=== PATIENT | male | born 1945 | race Caucasian/White ===

== ENCOUNTER 2020-06-22 02:21 | Outpatient (CLI) | payer MEDICARE, BC, SELFPAY ==
[2020-06-22 08:58] LABS: FREE T4 1.25 ng/dL (0.76-1.46); TSH 3.82 uIU/mL (0.36-3.74)
== END 2020-06-22 02:41 ==
PROVIDERS: PCP Family Medicine; Visit Provider Internal Medicine Endocrinology, Diabetes & Metabolism
DX: E05.90 Thyrotoxicosis, unspecified without thyrotoxic crisis or storm (principal); E11.9 Type 2 diabetes mellitus without complications
CPT/HCPCS: 36415; 83036; 84439; 84443

== ENCOUNTER 2020-09-23 13:59 | Observation (INO) | payer MEDICARE, BC, SELFPAY ==
[2020-09-23] VITALS (52 sets, daily range): BP systolic 100–168; BP diastolic 21–80; PULSE 82–175; RESP 1–25; TEMP 35.8–36.8; O2SAT 95–98
--- NOTE | 2020-09-23 14:00 | RT.EKG_ITS ---
APPROVED REPORT Exam: Resting ECG Patient Location: E HR:90 bpm ECG Measurements Heart Rate 90 AXIS OH 228 P 73 QRSd 138 QRS 33 QT 383 T 35 QTc 469 Conclusion Sinus rhythm...normal P axis, V-rate 60- 99 Prolonged OH interval...OH >220, V-rate 50- 90 Right bundle branch block...QRSd>120, terminal axis(90,270). No STEMI. I have reviewed and interpreted ECG and agree with software generated interpretation.
--- NOTE | 2020-09-23 14:00 | W.ED.GENAD ---
Discharge Plan Disposition Patient Disposition: [facility] INPATIENT Condition: Stable Discharge Details Clinical Impression: Pneumonia, Dyspnea, Chest pain Admit Date/Time: 09/23/20 17:14 Admit Provider: Rafiq Boss Attending Provider: Rafiq Boss Primary Care Provider: Mike Gómez ED Provider: Colleen Herrera Discharge Data Discharge Date/Time-TO BE ENTERED AT DEPARTURE: 09/23/20 18:50 Medical Decision Making 1410 -- 75-year-old male with a history of diabetes, hypertension, hyperlipidemia, BPH, GERD, hypothyroidism, OK with angioplasty x2 presents for an episode of chest pain and shortness of breath after going for a walk today. EKG notes a rate of 90, sinus, right bundle branch block and no STEMI, nondiagnostic. Able to obtain an old EKG from [facility] in 2019 which appears similar. Differential diagnosis includes ACS, pneumonia, PE, arrhythmia, electrolyte abnormality. Will place an IV, bolus IV fluids, screening labs, CT chest and reassess. 1600 --labs and imaging reviewed. Troponin negative. White blood cell count 16. Hemoglobin 10. Magnesium 0.9, will replete. Glucose elevated at 264 but with normal bicarb and anion gap. Considering patient's risk factors with a heart score of 5, will admit for observation, serial troponins and EKGs. 1700 --CT reviewed and notes possible right upper lobe pneumonia. Patient reassessed and he currently denies any symptoms. Discussed with over the phone and she has been concerned about patient's ongoing fatigue for the past few weeks. Considering patient's age and history, will admit for IV antibiotics and serial troponins and EKGs. Repeat EKG unchanged. Repeat troponin negative. Case discussed with hospitalist accepts patient for admission. Medical Records Medical records reviewed: Yes I reviewed the patient's medical records. Imaging Data Radiologic Study: Radiologist's impression: CT Angiography Chest With Contrast Exam date and time: 09/23/2020 2:39 PM Age: 75 years old Clinical indication: Other: Chest pain, SOB, R/O acute disease TECHNIQUE: Imaging protocol: Computed tomographic angiography of the chest with intravenous contrast. 3D rendering (Not supervised by radiologist): MIP and/or 3D reconstructed images were created by the technologist. Contrast material: OMNIPAQUE 350; Contrast volume: 82 ml; Contrast route: INTRAVENOUS (IV); COMPARISON: No relevant prior studies available. FINDINGS: Pulmonary arteries: Normal. No pulmonary emboli. Aorta: Unremarkable. No aortic aneurysm. No aortic dissection. Lungs: Multiple pulmonary nodules in the left lung measuring up to 6 mm. Minimal patchy ground-glass infiltrates in the right upper lobe. Focal inflammation or infection is not excluded. Pleural space: Unremarkable. No pneumothorax. No pleural effusion. Heart: Unremarkable. No cardiomegaly. No pericardial effusion. Lymph nodes: Unremarkable. No enlarged lymph nodes. Kidneys and ureters: Bilateral partially viewed renal cysts measuring at least 6.7 cm in maximal diameter. Bones/joints: Degenerative changes in the spine. Soft tissues: Unremarkable. Other findings: Atherosclerosis. IMPRESSION: 1. Bilateral partially viewed renal cysts measuring at least 6.7 cm in maximal diameter. 2. Multiple pulmonary nodules in the left lung measuring up to 6 mm. For patients at low risk (minimal or absent history of smoking and of other known risk factors), recommend CT Chest at 3-6 months, then consider CT Chest at 18-24 months. For patients at high risk (history of smoking or of other known risk factors), recommend CT Chest at 3-6 months, then CT Chest at 18-24 months. (Reference: Randal) 3. Minimal patchy ground-glass infiltrates in the right upper lobe. Focal inflammation or infection is not excluded. Lab Data Lab results reviewed: Yes I reviewed the patient's lab results. Labs: 09/23/20 17:41 Blood Blood Culture - Pending 09/23/20 17:41 Blood Blood Culture - Pending Laboratory Tests Range/Units 09/23/20 09/23/20 09/23/20 14:24 14:24 14:24 WBC (4.4-10.8) 10^3/uL 16.54 H RBC (4.36-5.78) 10^6/uL 3.33 L Hgb (13.5-17.5) g/dL 10.2 L Hct (40.0-50.0) % 30.5 L MCV (80-95) fL 91.6 MCH (27.0-33.0) pg 30.6 MCHC (32.0-36.0) % 33.4 RDW (11.8-14.1) % 12.0 Plt Count (130-400) 10^3/uL 193 MPV (8.0-11.0) fL 10.0 Immature Gran % 0.4 Neutrophils % 86.7 Lymphocytes % 6.0 Monocytes % 6.4 Eosinophils % 0.4 Basophils % 0.1 Nucleated RBC % % 0 Absolute Neutrophils (1.2-6.7) 10^3/uL 14.34 H Absolute Lymphocytes (1.2-3.4) 10^3/uL 0.99 L Absolute Monocytes (0.1-0.8) 10^3/uL 1.06 H Absolute Eosinophils (0.0-0.7) 10^3/uL 0.07 Absolute Basophils (0.0-0.2) 10^3/uL 0.02 PT (9.3-11.0) sec 9.8 INR (0.9-1.1) 1.0 APTT (21.0-27.5) sec 19.7 L Sodium (136-145) mmol/L 135 L Potassium (3.5-5.1) mmol/L 4.5 Chloride (98-107) mmol/L 100 Carbon Dioxide (21.0-32.0) mmol/L 24.4 Anion Gap (3-11) mmol/L 10.6 BUN (7-18) mg/dL 29 H Creatinine (0.70-1.30) mg/dL 1.62 H Estimated GFR/1.73 m2 (mL/min/1.73m2) 41.52 Glucose (74-106) mg/dL 264 H Calcium (8.5-10.1) mg/dL 8.7 Magnesium (1.8-2.4) mg/dL 0.9 L Total Bilirubin (0.2-1.0) mg/dL 0.5 AST (15-37) U/L 11 L ALT (16-63) U/L 22 Alkaline Phosphatase (46-116) U/L 90 Troponin I (<0.06) ng/mL < 0.05 Total Protein (6.4-8.2) g/dL 6.8 Albumin (3.4-5.0) g/dL 3.4 ECG Data Attestation: I personally reviewed and interpreted this ECG (s) as follows: Interpretation: #1 -- rate of 90, sinus, RBBB, no acute ST elevation or depression. QRS 138. QTc 469. #2 -- rate of 82, sinus, right bundle branch block, no acute ST elevation or depression. QRS 142. QTc 448. HPI General Mode of arrival: ambulatory. Date/Time Provider Initiated Documentation: 09/23/20 13:59. Limitations to Documentation: no limitations. Information obtained by: patient. HPI Narrative: Pt is a 75yo M w/ a h/o HTN, HLD, hypothyroidism, DM, glaucoma resulting in blindness, seasonal allergies, BPH, GERD, CAD and OK with angioplasty x 2 presents to the ED for shortness of breath and chest pain that started after a walk this morning. Patient states he went for his usual walk when he felt like he could not take a deep breath. He states he used his rescue inhaler with some relief. He states around this time he also developed substernal chest pressure that was at its worst 2/10. He denies any chest pain at present. He denies any radiation of pain, aggravating or alleviating factors. He states he was concerned about a possible heart attack so came to the ER for further evaluation. He does admit to a few episodes of diarrhea over the past few days but states this is now resolved. He denies any other recent illnesses, fever, cough, nausea, vomiting, dizziness or abdominal pain. He states he saw his celery packer recently who changed his hydrochlorothiazide to furosemide. Related Data Home Medications Medication Instructions Recorded Confirmed amlodipine 10 mg tablet 10 mg PO DAILY 06/23/20 09/23/20 aspirin 81 mg tablet,delayed 81 mg PO DAILY 06/23/20 09/23/20 release atorvastatin 80 mg tablet 80 mg PO QHS 06/23/20 09/23/20 carvedilol 12.5 mg tablet See Rx Instructions PO Q12H 06/23/20 09/23/20 cholecalciferol (vitamin D3) 50 50 mcg PO BID 06/23/20 09/23/20 mcg (2,000 unit) capsule glimepiride 4 mg tablet 2 mg PO BID tab 06/23/20 09/23/20 levothyroxine 50 mcg tablet 50 mcg PO DAILY 06/23/20 09/23/20 lisinopril 40 mg tablet 40 mg PO DAILY 06/23/20 09/23/20 mecobalamin (vitamin B12) 5,000 5,000 mcg PO DAILY tab 06/23/20 09/23/20 mcg disintegrating tablet multivitamin 1 tab PO DAILY 06/23/20 09/23/20 omeprazole 20 mg capsule,delayed 20 mg PO DAILY 06/23/20 09/23/20 release tamsulosin 0.4 mg capsule 0.4 mg PO DAILY 06/23/20 09/23/20 metformin 1,000 mg tablet 1,000 mg PO BID tab 08/04/20 09/23/20 sitagliptin 100 mg tablet 100 mg PO DAILY #90 tab 08/10/20 09/23/20 furosemide 40 mg PO DAILY 09/23/20 09/23/20 Previous Rx's Medication Instructions Recorded sitagliptin 100 mg tablet 100 mg PO DAILY #90 tab 08/10/20 Allergies Allergy/AdvReac Type Severity Reaction Status Date / Time brimonidine Allergy Unknown Verified 09/23/20 14:19 clopidogrel Allergy Unknown Rash Verified 09/23/20 14:19 dorzolamide Allergy Unknown Verified 09/23/20 14:19 latanoprost Allergy Unknown Verified 09/23/20 14:19 Review of Systems All systems reviewed & are unremarkable except as noted in HPI and below Constitutional Constitutional: Reports as per HPI, Denies chills and Denies fever(s) Eyes Eyes: Denies blurry vision ENT Ears, Nose, Mouth, and Throat: Denies dizziness, Denies sore throat and Denies throat swelling Cardiovascular Cardiovascular: Reports chest pain and Reports dyspnea Respiratory Respiratory: Denies cough and Reports dyspnea Gastrointestinal Gastrointestinal: Denies abdominal pain, Denies diarrhea and Denies vomiting Genitourinary Genitourinary: Denies hematuria and Denies dysuria Musculoskeletal Musculoskeletal: Denies back pain and Denies numbness Integumentary/Breasts Skin/Breast: Denies lesions and Denies rash Neurologic Neurologic: Denies dizziness, Denies localized weakness and Denies numbness Allergic/Immunologic Allergic/Immunologic: Denies throat swelling [facility] Medical History (Updated 09/23/20 @ 17:47 by Colleen Herrera DO) Anemia Arteriosclerotic heart disease Benign prostatic hyperplasia Blindness of both eyes Dyspnea on exertion GERD without esophagitis Hyperlipidemia Hypothyroidism Ischemic optic neuropathy Malaise and fatigue MDS (myelodysplastic syndrome) Multiple lung nodules on CT Myocardial infarction Primary open angle glaucoma of both eyes, severe stage Seasonal allergic rhinitis Type 2 diabetes mellitus with hyperglycemia Vitamin B12 deficiency Surgical History (Updated 06/23/20 @ 15:58 by Tereza Aguilera RN) H/O angioplasty (~1994) [facility] H/O heart artery stent (~2013) 3 stents per pt [facility] History of cataract surgery multiple surgeries between 6520-1356 [facility] per pt History of nasal surgery S/P tonsillectomy (~1950) Status post glaucoma surgery multiple surgeries per pt between 2074-0831 [facility] Family History (Updated 06/05/20 @ 15:16 by Rose Rivera) Uncle Asthma Breast cancer Diabetes Heart disease Aunt Breast cancer Diabetes Daughter Diabetes Social History (Updated 08/04/20 @ 13:35 by Piper Resendez RN) Smoking/Tobacco Use Status: Former Tobacco Use Quit Date: 11/17/82 Pack-years: 40 Tobacco: How many years used: 30 Smoking risk assessment performed?: Yes Alcohol Intake: current Alcohol Intake frequency: 0-2 drinks per day Alcohol type: wine Drug use: Never Substance use type: does not use Household members: spouse and family Housing: house Do you need help understanding health information?: Often current occupation: Retired Sexually active: No Do you think of yourself as: straight/heterosexual Current gender identity: male What is your relationship status?: Panel score (0-1 are the most socially isolated patients): 1 Do you feel safe at home: Yes Do you feel safe in your relationship?: Yes Exam Const General: cooperative and healthy appearing Orientation: alert and awake [facility] Head: normal to inspection Ears: hearing grossly normal bilaterally and external ears normal General nose exam: external nose normal Face and sinus: normal facial exam Mouth: oral mucosae normal Teeth and gingiva: dentition normal Throat: posterior oropharynx normal Eyes General: appearance normal, both eyes and all related structures Eyelids: eyelids normal Pupils: PERRL EOM: EOM intact bilaterally Neck Neck: normal visual inspection Lymphatic: no lymphadenopathy noted Chest Chest: normal inspection of the chest Resp Effort & Inspection: normal respiratory effort and able to speak in complete sentences Auscultation: clear to auscultation bilaterally Cardio Rate: regular rate Rhythm: regular rhythm GI Inspection: normal to inspection Palpation: soft, not firm, no guarding, no hepatosplenomegaly, no masses and nontender Auscultation: normal bowel sounds Back/Spine/Pelvis Thoracic/Lumbar Spine: thoracic and lumbar spine normal to inspection Skin General skin exam: no rashes or lesions noted Neuro General: patient alert and patient awake Cognition: normal cognition Speech: speech normal Gait: normal gait Motor: muscle tone normal throughout Sensory Exam: no sensory deficits noted Extrem General: normal to inspection, full ROM and capillary refill normal Psych Appearance: grossly normal Mental Status: mental status grossly normal Speech and Movement: speech and movement normal Affect: normal affect Thought Process: normal
--- NOTE | 2020-09-23 14:30 | DI.CT_ITS ---
EXAM: CT CHEST PE CTA CLINICAL HISTORY: chest pain, sob, r/o acute disease. TECHNIQUE: Imaging Protocol: Axial CT angiography was performed with multi-slice acquisition and mu lti-planar and/or 3D reconstructions. CONTRAST MATERIAL: Intravenous: Omnipaque 350 Contrast volume:structured data in ml COMPARISON: No exams were available for comparison FINDINGS: CT angiography of the chest was performed with intravenous infusion of 82 cc of Omnipaque 350. There are multiple pulmonary nodules noted, the largest measuring about 6 millimeters in diameter abu tting the pleura in the left lower lobe. These are noncalcified and smooth. No calcified nodules. No significant intrapulmonary infiltrate. Mild changes of scarring noted. No pleural effusion. Tra cheobronchial tree appears intact. No evidence of pulmonary embolic disease. Thoracic aorta is of normal diameter, no thoracic aortic an eurysm or dissection, major branch vessels appear intact. No mediastinal or hilar adenopathy. Images obtained through the upper abdomen show unremarkable appearance of the visualized portions of the liver, spleen, pancreas, adrenals, and kidneys with an incidental large left renal cyst noted.. IMPRESSION: No evidence of pulmonary embolic disease. Multiple noncalcified pulmonary nodules noted, follow-up c hest CT recommended in 6 months. RADIATION DOSE DELIVERED: 508.02mGy.cm Total DLP 508.02mGy.cm Total DLP DATA REPOSITORY: All CT scans at this facility are submitted to the National Radiology Data Registry (NRDR) Dose Index Registry (DIR) with the [employer] (ACR). RADIATION OPTIMIZATION: All CT scans at this facility use at least one of these dose optimization te chniques: automated exposure control; mA and/or kV adjustment per patient size (includes targeted exa ms where dose is matched to clinical indication); or iterative reconstruction.
[2020-09-23 14:31] LABS: Abs Immature Grans 0.07 10^3/uL (0.0-0.06); Absolute Basophil Count 0.02 10^3/uL (0.0-0.2); Absolute Lymphocyte Count 0.99 10^3/uL (1.2-3.4); Absolute Monocyte Count 1.06 10^3/uL (0.1-0.8); Absolute Neutrophil Count 14.34 10^3/uL (1.2-6.7); Basophils % 0.1; Eosinophils % 0.4; HCT 30.5 % (40.0-50.0); HGB 10.2 g/dL (13.5-17.5); Immature Grans % 0.4; MCH 30.6 pg (27.0-33.0); MCHC 33.4 % (32.0-36.0); MCV 91.6 fL (80-95); Monocytes % 6.4; Neutrophils % 86.7; Nucleated RBC 0 %; Platelet Count 193 10^3/uL (130-400); RBC 3.33 10^6/uL (4.36-5.78); RDW-SD 40.7 fL; WBC 16.54 10^3/uL (4.4-10.8)
[2020-09-23 14:43] LABS: Absolute Eosinophil Count 0.07 10^3/uL (0.0-0.7)
[2020-09-23 14:56] LABS: PTT Activated 19.7 sec (21.0-27.5); Prothrombin Time 9.8 sec (9.3-11.0)
[2020-09-23 15:03] LABS: ALT 22 U/L (16-63); AST 11 U/L (15-37); Albumin 3.4 g/dL (3.4-5.0); Alkaline Phosphatase 90 U/L (46-116); Anion Gap 10.6 mmol/L (3-11); BUN 29 mg/dL (7-18); Bilirubin, Total 0.5 mg/dL (0.2-1.0); CO2 24.4 mmol/L (21.0-32.0); CREATININE 1.62 mg/dL (0.70-1.30); Calcium 8.7 mg/dL (8.5-10.1); Chloride 100 mmol/L (98-107); Estimated GFR 41.52 (mL/min/1.73m2); Glucose 264 mg/dL (74-106); Magnesium 0.9 mg/dL (1.8-2.4); Potassium 4.5 mmol/L (3.5-5.1); Sodium 135 mmol/L (136-145); Total Protein 6.8 g/dL (6.4-8.2)
[2020-09-23 15:05] LABS: Troponin I < 0.05 ng/mL (<0.06)
[2020-09-23] MEDS: Aspirin 325 MG TAB PO (15:23)
[2020-09-23] MEDS: Omnipaque 350 MG/ML 100 ML BTL IJ (15:43)
[2020-09-23] MEDS: Normal Saline - Diluent 50 ML VIAL IV (15:46)
[2020-09-23] MEDS: Normal Saline Flush 10 ML SYR IVP (15:47)
[2020-09-23] MEDS: MAGNESIUM SULFATE 2 GM/50 ML BAG IVPB (16:01)
[2020-09-23] MEDS: Normal Saline 500 ML IV (16:02)
--- NOTE | 2020-09-23 16:36 | DI.VRAD_ITS ---
PROCEDURE INFORMATION: Exam: CT Angiography Chest With Contrast Exam date and time: 09/23/2020 2:39 PM Age: 75 years old Clinical indication: Other: Chest pain, SOB, R/O acute disease TECHNIQUE: Imaging protocol: Computed tomographic angiography of the chest with intravenous contrast. 3D rendering (Not supervised by radiologist): MIP and/or 3D reconstructed images were created by the technologist. Contrast material: OMNIPAQUE 350; Contrast volume: 82 ml; Contrast route: INTRAVENOUS (IV); COMPARISON: No relevant prior studies available. FINDINGS: Pulmonary arteries: Normal. No pulmonary emboli. Aorta: Unremarkable. No aortic aneurysm. No aortic dissection. Lungs: Multiple pulmonary nodules in the left lung measuring up to 6 mm. Minimal patchy ground-glass infiltrates in the right upper lobe. Focal inflammation or infection is not excluded. Pleural space: Unremarkable. No pneumothorax. No pleural effusion. Heart: Unremarkable. No cardiomegaly. No pericardial effusion. Lymph nodes: Unremarkable. No enlarged lymph nodes. Kidneys and ureters: Bilateral partially viewed renal cysts measuring at least 6.7 cm in maximal diameter. Bones/joints: Degenerative changes in the spine. Soft tissues: Unremarkable. Other findings: Atherosclerosis. IMPRESSION: 1. Bilateral partially viewed renal cysts measuring at least 6.7 cm in maximal diameter. 2. Multiple pulmonary nodules in the left lung measuring up to 6 mm. For patients at low risk (minimal or absent history of smoking and of other known risk factors), recommend CT Chest at 3-6 months, then consider CT Chest at 18-24 months. For patients at high risk (history of smoking or of other known risk factors), recommend CT Chest at 3-6 months, then CT Chest at 18-24 months. (Reference: Randal) 3. Minimal patchy ground-glass infiltrates in the right upper lobe. Focal inflammation or infection is not excluded. REFERENCES: Randal H, et al. Guidelines for Management of Incidental Pulmonary Nodules Detected on CT Images: From the Fleischner Society 2017. Radiology. 2017;284(1):228-243. Dictated and Authenticated by: Shoaib Mcgee MD. Ordering:COLE Macias MD
--- NOTE | 2020-09-23 17:00 | RT.EKG_ITS ---
APPROVED REPORT Exam: Resting ECG Patient Location: E HR:82 bpm ECG Measurements Heart Rate 82 AXIS IN 240 P 77 QRSd 142 QRS 23 QT 384 T 30 QTc 448 Conclusion Sinus rhythm...normal P axis, V-rate 60- 99 Prolonged IN interval...IN >220, V-rate 50- 90 Right bundle branch block...QRSd>120, terminal axis(90,270) I have reviewed and interpreted ECG and agree with software generated interpretation.
[2020-09-23] MEDS: cefTRIAXone 1 GM/50 ML BAG IVPB (18:02)
[2020-09-23] MEDS: AZITHROMYCIN 500 MG in Normal Saline 250 ML 250 MG IVPB (18:02)
[2020-09-23 18:52] LABS: Troponin I < 0.05 ng/mL (<0.06)
--- NOTE | 2020-09-23 19:04 | W.PM.HP.N ---
Date of service: 09/23/20 Time of Service: 19:04 Assessment and Plan Assessment and plan (1) Pneumonia: Status: Acute Assessment and plan: continue Azithromycin; change Rocephin to Unasyn; cont. respiratory toiletry w/ acapella, aerosols on prn basis; try to obtain sputum culture to guide antibiotics Qualifiers: Pneumonia type: due to unspecified organism Laterality: right Lung location: upper lobe of lung Qualified Code(s): J18.9 - Pneumonia, unspecified organism (2) Chest pain: Status: Acute Assessment and plan: continue current statin and ASA use for his CAD; repeat troponin I; consider outpatient stress MPI if all troponin levels are negative. Patient states that he just saw his bird sitter, Dr. Daniels, about one month ago. I will have the patient follow up w/ him for stress MPI. I think that his CP was secondary to his pneumonia. Qualifiers: Chest pain type: unspecified Qualified Code(s): R07.9 - Chest pain, unspecified (3) Multiple lung nodules on CT: Status: Acute Assessment and plan: patient reports that he has had this followed for years by a high lead yarder at [facility] and there has been no change. I have asked the patient to follow up w/ his PCP or high lead yarder regarding these sub-1 cm nodules. (4) Type 2 diabetes mellitus with hyperglycemia: Status: Acute Assessment and plan: while we are still ruling out ACS, I have put his metformin on hold and witheld his glyburide. I will treat him w/ novolog insulin per sliding scale but continue his Januvia. 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 Patient usually walks daily w/out symptoms but today was out for a walk and felt some dyspnea and a rattling in his chest and he used an inhaler he had left over from prior bronchitis episode. This helped w/ his dyspnea but then he felt some tighness in his chest substernal. No radiation into his arms/jaw or neck. The discomfort resolved by the time he came to the ER but he came to the ER d/t the continued feeling of dyspnea. He denies any sputum production or fever or rigors. Workup in the ER included labs, EKG, and CT of the chest w/ contrast. CTA failed to demonstrate any PE nor any aneurysm but he was found to have multiple small pulmonary nodules (largest 6 mm abutting the pleura in the LLL and non-calcified), no mediastinal nor hilar adenopathy but minimal patchy ground glass infiltrates were seen in the RUL. Labs included CBC that demonstrated WBC 16,500 and anemia Hb 10.2 GM. CMP demonstrated azotemia BUN 29 and creatinine 1.62. Troponin I was <0.05 x 2 sets. EKG demonstrated NSR w/ 1st degree AV block and RBBB. Per Dr. Herrera, she reviewed his last EKG from [facility] and he has known RBBB. Treatment in the ER included Rocephin 1 gm, azithromycin 500 mg (both given Iv), LR and magnesium sulfate 2 gm IVPB (for Mg level of 0.9). Patient is admitted overnight on observation for treatment of CAP and to rule out ACS. He currently is feeling much better and is no longer dyspneic and denies any chest pain. He is not requiring supplemental oxygen. Review of Systems All systems reviewed & are unremarkable except as noted in HPI and below [facility] Medical History Anemia Arteriosclerotic heart disease Benign prostatic hyperplasia Blindness of both eyes Dyspnea on exertion GERD without esophagitis Hyperlipidemia Hypothyroidism Ischemic optic neuropathy Malaise and fatigue MDS (myelodysplastic syndrome) Multiple lung nodules on CT Myocardial infarction Primary open angle glaucoma of both eyes, severe stage Seasonal allergic rhinitis Type 2 diabetes mellitus with hyperglycemia Vitamin B12 deficiency Surgical History H/O angioplasty (~1994) [facility] H/O heart artery stent (~2013) 3 stents per pt [facility] History of cataract surgery multiple surgeries between [id number] [facility] per pt History of nasal surgery S/P tonsillectomy (~1950) Status post glaucoma surgery multiple surgeries per pt between [id number] [facility] Family History Uncle Asthma Breast cancer Diabetes Heart disease Aunt Breast cancer Diabetes Daughter Diabetes Social History Smoking/Tobacco Use Status: Former Tobacco Use Quit Date: 11/17/82 Pack-years: 40 Tobacco: How many years used: 30 Smoking risk assessment performed?: Yes Alcohol Intake: current Alcohol Intake frequency: 0-2 drinks per day Alcohol type: wine Drug use: Never Substance use type: does not use Household members: spouse and family Housing: house Do you need help understanding health information?: Often current occupation: Retired Sexually active: No Do you think of yourself as: straight/heterosexual Current gender identity: male What is your relationship status?: Panel score (0-1 are the most socially isolated patients): 1 Do you feel safe at home: Yes Do you feel safe in your relationship?: Yes Meds Home Medications and Allergies Home Medications Medication Instructions Recorded Confirmed Type amlodipine 10 mg tablet 10 mg PO DAILY 06/23/20 09/23/20 History aspirin 81 mg tablet,delayed 81 mg PO DAILY 06/23/20 09/23/20 History release atorvastatin 80 mg tablet 80 mg PO QHS 06/23/20 09/23/20 History carvedilol 12.5 mg tablet See Rx Instructions PO Q12H 06/23/20 09/23/20 History cholecalciferol (vitamin D3) 50 50 mcg PO BID 06/23/20 09/23/20 History mcg (2,000 unit) capsule glimepiride 4 mg tablet 2 mg PO BID tab 06/23/20 09/23/20 History levothyroxine 50 mcg tablet 50 mcg PO DAILY 06/23/20 09/23/20 History lisinopril 40 mg tablet 40 mg PO DAILY 06/23/20 09/23/20 History mecobalamin (vitamin B12) 5,000 5,000 mcg PO DAILY tab 06/23/20 09/23/20 History mcg disintegrating tablet multivitamin 1 tab PO DAILY 06/23/20 09/23/20 History omeprazole 20 mg capsule,delayed 20 mg PO DAILY 06/23/20 09/23/20 History release tamsulosin 0.4 mg capsule 0.4 mg PO DAILY 06/23/20 09/23/20 History metformin 1,000 mg tablet 1,000 mg PO BID tab 08/04/20 09/23/20 History sitagliptin 100 mg tablet 100 mg PO DAILY #90 tab 08/10/20 09/23/20 Rx furosemide 40 mg PO DAILY 09/23/20 09/23/20 History Allergies Allergy/AdvReac Type Severity Reaction Status Date / Time brimonidine Allergy Unknown Verified 09/23/20 14:19 clopidogrel Allergy Unknown Rash Verified 09/23/20 14:19 dorzolamide Allergy Unknown Verified 09/23/20 14:19 latanoprost Allergy Unknown Verified 09/23/20 14:19 Exam Narrative Exam Narrative: Older male who is obese, he is alert and oriented x 3; no acute distress; not tachypneic HEENT: unremarkable neck: supple, no JVD, no accessory respiratory muscle use; normal carotid pulses by palpation but w/ bruit over the left carotid area lungs: No rhonchi nor wheezes, clear heart: RRR w/ prolonged S2, no murmur or rub abdomen: obese, soft, nontender, normal bowel sounds; no bruits extremities: no cyanosis nor edema; no calf tenderness neuro: grossly intact; non-focal Results Labs Result diagrams: 09/24/20 07:34 09/24/20 07:34 Labs: Laboratory Results - last 24 hr 09/23/20 09/23/20 09/23/20 14:24 14:24 14:24 WBC 16.54 H RBC 3.33 L Hgb 10.2 L Hct 30.5 L MCV 91.6 MCH 30.6 MCHC 33.4 RDW 12.0 Plt Count 193 MPV 10.0 Immature Gran % 0.4 Neutrophils % 86.7 Lymphocytes % 6.0 Monocytes % 6.4 Eosinophils % 0.4 Basophils % 0.1 Nucleated RBC % 0 Absolute Neutrophils 14.34 H Absolute Lymphocytes 0.99 L Absolute Monocytes 1.06 H Absolute Eosinophils 0.07 Absolute Basophils 0.02 PT 9.8 INR 1.0 APTT 19.7 L Sodium 135 L Potassium 4.5 Chloride 100 Carbon Dioxide 24.4 Anion Gap 10.6 BUN 29 H Creatinine 1.62 H Estimated GFR/1.73 m2 41.52 Glucose 264 H Calcium 8.7 Magnesium 0.9 L Total Bilirubin 0.5 AST 11 L ALT 22 Alkaline Phosphatase 90 Troponin I < 0.05 Total Protein 6.8 Albumin 3.4 09/23/20 17:41 WBC RBC Hgb Hct MCV MCH MCHC RDW Plt Count MPV Immature Gran % Neutrophils % Lymphocytes % Monocytes % Eosinophils % Basophils % Nucleated RBC % Absolute Neutrophils Absolute Lymphocytes Absolute Monocytes Absolute Eosinophils Absolute Basophils PT INR APTT Sodium Potassium Chloride Carbon Dioxide Anion Gap BUN Creatinine Estimated GFR/1.73 m2 Glucose Calcium Magnesium Total Bilirubin AST ALT Alkaline Phosphatase Troponin I < 0.05 Total Protein Albumin Last Vital Signs Temp 36.8 C 09/23/20 14:08 Pulse 82 09/23/20 18:16 Resp 17 09/23/20 18:40 BP 153/66 H 09/23/20 18:16 Pulse Ox 96 09/23/20 18:40 COVID-19 Screening Have you,or household,traveled outside [place] in last 14 days?: Yes Had IN PERSON contact w/suspected or confirmed C-19 person: No
[2020-09-23] MEDS: Atorvastatin 40 MG TAB 80 MG PO (20:47)
[2020-09-23] MEDS: Enoxaparin 40 MG/0.4 ML SYR SC (20:47)
[2020-09-23] MEDS: Albuterol/Ipratropium 3 ML UPD VIAL UPD (20:47)
[2020-09-23] MEDS: Carvedilol 25 MG TAB PO (20:47)
[2020-09-23] MEDS: guaiFENesin 600 MG TABCR PO (20:47)
[2020-09-23] MEDS: Lactated Ringers 1,000 ML 85 ML IV (20:48)
[2020-09-23 22:34] LABS: Troponin I < 0.05 ng/mL (<0.06)
[2020-09-23] MEDS: Insulin Aspart 300 UNITS/3 ML PEN SC (22:48)
[2020-09-24] MEDS: Albuterol/Ipratropium 3 ML UPD VIAL UPD ×3 (00:43→11:30)
[2020-09-24] MEDS: AMPICILLIN/SULBACTAM 3 GM in Normal Saline 100 ML IVPB ×3 (00:44→12:22)
[2020-09-24 00:56] VITALS: BP 128/58; PULSE 76; RESP 18; TEMP 36.1; O2SAT 99
[2020-09-24 05:25] VITALS: BP 122/84; PULSE 77; RESP 17; TEMP 35.3; O2SAT 97
[2020-09-24] MEDS: Levothyroxine 50 MCG TAB PO (05:30)
[2020-09-24] MEDS: Normal Saline Flush 10 ML SYR IVP ×2 (05:30→08:58)
[2020-09-24 08:09] LABS: Abs Immature Grans 0.05 10^3/uL (0.0-0.06); Absolute Basophil Count 0.02 10^3/uL (0.0-0.2); Absolute Eosinophil Count 0.14 10^3/uL (0.0-0.7); Absolute Lymphocyte Count 1.24 10^3/uL (1.2-3.4); Absolute Monocyte Count 0.79 10^3/uL (0.1-0.8); Absolute Neutrophil Count 8.38 10^3/uL (1.2-6.7); Basophils % 0.2; Eosinophils % 1.3; HCT 27.5 % (40.0-50.0); HGB 9.2 g/dL (13.5-17.5); Immature Grans % 0.5; Lymphocytes % 11.7; MCH 30.9 pg (27.0-33.0); MCHC 33.5 % (32.0-36.0); MCV 92.3 fL (80-95); MPV 10.4 fL (8.0-11.0); Monocytes % 7.4; Neutrophils % 78.9; Nucleated RBC 0 %; Platelet Count 171 10^3/uL (130-400); RBC 2.98 10^6/uL (4.36-5.78); RDW 12.4 % (11.8-14.1); RDW-SD 41.4 fL; WBC 10.62 10^3/uL (4.4-10.8)
[2020-09-24 08:38] LABS: Anion Gap 8.9 mmol/L (3-11); BUN 23 mg/dL (7-18); CO2 25.1 mmol/L (21.0-32.0); CREATININE 1.24 mg/dL (0.70-1.30); Calcium 8.6 mg/dL (8.5-10.1); Chloride 104 mmol/L (98-107); Estimated GFR 56.53 (mL/min/1.73m2); Glucose 156 mg/dL (74-106); Potassium 4.1 mmol/L (3.5-5.1); Sodium 138 mmol/L (136-145)
[2020-09-24 08:54] VITALS: BP 160/64; PULSE 79; RESP 18; TEMP 36.2; O2SAT 96
[2020-09-24] MEDS: Insulin Aspart 300 UNITS/3 ML PEN SC ×2 (08:57→12:21)
[2020-09-24] MEDS: Carvedilol 12.5 MG TAB PO (08:58)
[2020-09-24] MEDS: Lisinopril 20 MG TAB 40 MG PO (08:58)
[2020-09-24] MEDS: Furosemide 40 MG TAB PO (08:58)
[2020-09-24] MEDS: Omeprazole 20 MG CAPCR PO (08:59)
[2020-09-24] MEDS: Cyanocobalamin 500 MCG TAB 5000 MCG PO (08:59)
[2020-09-24] MEDS: amLODIPine 10 MG TAB PO (08:59)
[2020-09-24] MEDS: Cholecalciferol (Vitamin D3) 1,000 UNIT TAB 2000 UNITS PO (08:59)
[2020-09-24] MEDS: Tamsulosin 0.4 MG CAPCR PO (08:59)
[2020-09-24] MEDS: guaiFENesin 600 MG TABCR PO (08:59)
[2020-09-24] MEDS: Multivitamin TAB 1 TAB PO (08:59)
[2020-09-24] MEDS: SITagliptin 100 MG TAB PO (09:00)
[2020-09-24] MEDS: Aspirin E.C. 81 MG TABEC PO (09:00)
[2020-09-24 11:22] VITALS: BP 142/58; PULSE 74; RESP 18; TEMP 36.6; O2SAT 94
[2020-09-24 11:30] VITALS: PULSE 72; RESP 1; RESP 18; O2SAT 95
[2020-09-24 11:37] VITALS: PULSE 78; RESP 1; RESP 20; O2SAT 100
--- NOTE | 2020-09-24 13:32 | PGE_ITS ---
Date of Service Date of service: 09/24/20 Time of Service: 13:32 Assessment and Plan Assessment and plan (1) Pneumonia: Status: Acute Assessment and plan: Will prescribe Z-Louie and Augmentin 875 mg p.o. twice daily x7 days Qualifiers: Pneumonia type: due to unspecified organism Laterality: right Lung location: upper lobe of lung Qualified Code(s): J18.9 - Pneumonia, unspecified organism (2) Chest pain: Status: Resolved Assessment and plan: Needs follow-up with an outpatient Lexiscan stress MPI. This can be arranged with either his PCP or his process development associate. Patient is advised to call his process development associate Dr. Daniels. Qualifiers: Chest pain type: unspecified Qualified Code(s): R07.9 - Chest pain, unspecified (3) Type 2 diabetes mellitus with hyperglycemia: Status: Acute Assessment and plan: Patient can resume his Metformin and glyburide and Januvia. 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 Denies any dyspnea or chest discomfort. He is not running a fever. His leuk ocytosis is resolved is down to 10,000. His acute kidney injury has improved with his BUN down to 23 creatinine 1.24. He would like to return home today. I think he can be safely discharged with another 7 days of oral antibiotics. He is currently on Unasyn and azithromycin. I will give him a Z-Louie and Augmentin. He should get a follow-up chest x-ray in 2 weeks. With regard to his chest discomfort given his history of coronary artery disease he should follow-up with his process development associate Dr. Daniels for stress MPI in a couple weeks after he recovers from his pneumonia. With respect to his noncalcified subcentimeter pulmonary nodules these should be followed up either by his PCP or by a uniform room attendant with a repeat CT scan in 6 months. Exam Narrative Exam Narrative: Elderly obese male sitting up in his bed alert and oriented person place time circumstance. Lungs with bibasilar rales and some end expiratory wheezes no rhonchi heart regular rate and rhythm with a prolonged S2 Objective Last Vital Signs Temp 36.6 C 09/24/20 11:22 Pulse 78 09/24/20 11:37 Resp 20 09/24/20 11:37 BP 142/58 H 09/24/20 11:22 Pulse Ox 100 09/24/20 11:37 Laboratory Results - last 24 hr 09/23/20 09/23/20 09/23/20 14:24 14:24 14:24 WBC 16.54 H RBC 3.33 L Hgb 10.2 L Hct 30.5 L MCV 91.6 MCH 30.6 MCHC 33.4 RDW 12.0 Plt Count 193 MPV 10.0 Immature Gran % 0.4 Neutrophils % 86.7 Lymphocytes % 6.0 Monocytes % 6.4 Eosinophils % 0.4 Basophils % 0.1 Nucleated RBC % 0 Absolute Neutrophils 14.34 H Absolute Lymphocytes 0.99 L Absolute Monocytes 1.06 H Absolute Eosinophils 0.07 Absolute Basophils 0.02 PT 9.8 INR 1.0 APTT 19.7 L Sodium 135 L Potassium 4.5 Chloride 100 Carbon Dioxide 24.4 Anion Gap 10.6 BUN 29 H Creatinine 1.62 H Estimated GFR/1.73 m2 41.52 Glucose 264 H Calcium 8.7 Magnesium 0.9 L Total Bilirubin 0.5 AST 11 L ALT 22 Alkaline Phosphatase 90 Troponin I < 0.05 Total Protein 6.8 Albumin 3.4 09/23/20 09/23/20 09/24/20 17:41 22:05 07:34 WBC RBC Hgb Hct MCV MCH MCHC RDW Plt Count MPV Immature Gran % Neutrophils % Lymphocytes % Monocytes % Eosinophils % Basophils % Nucleated RBC % Absolute Neutrophils Absolute Lymphocytes Absolute Monocytes Absolute Eosinophils Absolute Basophils PT INR APTT Sodium 138 Potassium 4.1 Chloride 104 Carbon Dioxide 25.1 Anion Gap 8.9 BUN 23 H Creatinine 1.24 Estimated GFR/1.73 m2 56.53 Glucose 156 H D Calcium 8.6 Magnesium Total Bilirubin AST ALT Alkaline Phosphatase Troponin I < 0.05 < 0.05 Total Protein Albumin 09/24/20 07:34 WBC 10.62 D RBC 2.98 L Hgb 9.2 L Hct 27.5 L MCV 92.3 MCH 30.9 MCHC 33.5 RDW 12.4 Plt Count 171 MPV 10.4 Immature Gran % 0.5 Neutrophils % 78.9 Lymphocytes % 11.7 Monocytes % 7.4 Eosinophils % 1.3 Basophils % 0.2 Nucleated RBC % 0 Absolute Neutrophils 8.38 H Absolute Lymphocytes 1.24 Absolute Monocytes 0.79 Absolute Eosinophils 0.14 Absolute Basophils 0.02 PT INR APTT Sodium Potassium Chloride Carbon Dioxide Anion Gap BUN Creatinine Estimated GFR/1.73 m2 Glucose Calcium Magnesium Total Bilirubin AST ALT Alkaline Phosphatase Troponin I Total Protein Albumin
--- NOTE | 2020-09-24 13:56 | DSE_ITS ---
Date of service: 09/24/20 Time of Service: 13:56 DS: Diagnosis Discharge Diagnosis (1) Pneumonia: Status: Acute Asessment and Plan: Afebrile with normalization of his leukocyte count and no hypoxemic on discharge. Patient to complete 5-day course of a Z-Louie as well as 7 days of Augmentin with a follow-up chest x-ray in 2 weeks. (2) Chest pain: Status: Resolved Asessment and Plan: Patient to call his slide machine tender Dr. Daniels at [facility] for follow-up stress MPI once his pneumonia is resolved. (3) Type 2 diabetes mellitus with hyperglycemia: Status: Acute Asessment and Plan: Resume his glyburide and metformin and Januvia. Follow-up with his PCP regarding adjustment of his diabetic medications. 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 75-year-old gentleman with history of diabetes mellitus, coronary artery disease, GERD presented with acute exertional dyspnea and some vague chest discomfort. Evaluation emergency department included routine labs and serial troponin levels as well as serial EKGs and a CT scan of his chest with contrast. No pulmonary embolism or aneurysm was seen however he was found to have some groundglass opacification in the right upper lobe consistent with a pneumonia he was also found to have multiple subcentimeter noncalcified lung nodules which according to the patient he is known about and has been followed with serial CT scans over the years. Patient had elevated white count of 16,000 and a chronic anemia with hemoglobin 10.2 g. CMP demonstrated Azotemia with elevated BUN of 29 creatinine 1.62. Patient was given a liter of lactated Ringer's in the emergency department and started on empiric antibiotics including azithromycin and Rocephin. He was admitted on observation status while he continued to have serial troponin I levels monitored. Troponin I levels were all within normal limits x3 sets. He had no further chest pain and no further dyspnea. His dyspnea improved with aerosolized bronchodilators. His leukocytosis resolved overnight to a WBC of 10,000. He remained asymptomatic and did not require any supplemental oxygen.In fact at the time of discharge his oxygen saturation was 100% on room air. As the patient was feeling significantly better it was felt that he could be safely discharged to complete antibiotic treatment as an outpatient and obtain an outpatient stress MPI once his pneumonia is cleared. Patient will be discharged home on a Z-Louie as well as Augmentin 875 mg twice a day for 7 days. Will be given a prescription for albuterol MDI 2 puffs 4 times daily as needed dyspnea or wheezing. He should have a follow-up chest x-ray in 2 weeks and see his primary care provider in the next week. He was also advised to call his slide machine tender to set up an outpatient stress MPI since his last stress test was over a year ago. Home Meds and New Rx's Prescriptions: New amoxicillin-pot clavulanate [Augmentin] 875-125 mg tablet 1 tab PO BID Qty: 14 RF: 0 albuterol sulfate 90 mcg/actuation HFA aerosol inhaler 2 puff inhalation QID PRNQty: 18 RF: 0 azithromycin 250 mg tablet 250 mg PO DAILY 5 Days Qty: 5 RF: 0 Continued metformin 1,000 mg tablet 1,000 mg PO BID RF: 0 lisinopril 40 mg tablet 40 mg PO DAILY RF: 0 glimepiride 4 mg tablet 2 mg PO BID RF: 0 atorvastatin 80 mg tablet 80 mg PO QHS RF: 0 tamsulosin 0.4 mg capsule 0.4 mg PO DAILY RF: 0 omeprazole 20 mg capsule,delayed release(DR/EC) 20 mg PO DAILY RF: 0 amlodipine 10 mg tablet 10 mg PO DAILY RF: 0 levothyroxine 50 mcg tablet 50 mcg PO DAILY RF: 0 carvedilol 12.5 mg tablet See Rx Instructions PO Q12H RF: 0 multivitamin Tablet 1 tab PO DAILY RF: 0 aspirin [Adult Aspirin Regimen] 81 mg tablet,delayed release (DR/EC) 81 mg PO DAILY RF: 0 cholecalciferol (vitamin D3) [Vitamin D3] 50 mcg (2,000 unit) capsule 50 mcg PO BID RF: 0 mecobalamin (vitamin B12) 5,000 mcg tablet,disintegrating 5,000 mcg PO DAILY RF: 0 Januvia 100 mg tablet 100 mg PO DAILY Qty: 90 RF: 3 furosemide 40 mg tablet 40 mg PO DAILY RF: 0 Discharge Instructions Activity:: Activity as Tolerated Equipment/Supplies:: No Equipment Needed Diet:: Carb Counting Discharge Orders Discharge Orders: Discharge Order (Routine); Ordered 09/24/20 Ordered By: Rafiq Boss Other Ambulatory Orders: XR chest 2V PA & lateral (Routine) Timeframe: 2 Weeks Facility: [facility] - Location: DIAGNOSTIC IMAGING Ordered By: Rafiq Boss DS: Summary Status at Discharge Functional status at discharge: independent ambulation Overall status at discharge: patient is back to baseline Mental Status: mental status grossly normal Speech and Movement: speech and movement normal Mood: congruent mood Affect: normal affect Time Spent with Patient providing and/or coordinating discharge services: Greater than 30 minutes Specific discharge activities: Discussion of his medications with the patient, discharge instructions, discharge prescription Exam Narrative Exam Narrative: Elderly obese male sitting up in his bed alert and oriented person place time circumstance. Lungs with bibasilar rales and some end expiratory wheezes no rhonchi heart regular rate and rhythm with a prolonged S2 Psych Mental Status: mental status grossly normal Speech and Movement: speech and movement normal Mood: congruent mood Affect: normal affect DS: Data Vitals/I&O Vitals and I&O: Vital Signs Temperature 36.6 C 09/24/20 11:22 Temperature Source Tympanic 09/24/20 11:22 Pulse 78 09/24/20 11:37 Pulse Rhythm Regular 09/24/20 02:03 Pulse 83 09/23/20 18:40 Respiratory Rate 20 09/24/20 11:37 Respiratory Effort Non-Labored 09/24/20 02:03 Respiratory Depth Normal 09/24/20 02:03 Respiratory Pattern Normal 09/24/20 02:03 Blood Pressure 142/58 H 09/24/20 11:22 Blood Pressure Mean 86 09/23/20 18:16 Blood Pressure Position Sitting 09/23/20 14:08 Pulse Oximetry 100 09/24/20 11:37 Oxygen Delivery Method Room Air 09/24/20 11:30 Oxygen Flow Rate 0 09/24/20 11:30 Pain Level 0 09/24/20 11:22 Intake & Output 09/23/20 09/24/20 09/24/20 23:59 11:59 23:59 Intake Total 850 / 850 1153.417 / 1153.417 Output Total 1050 / 1050 500 / 1000 500 / 1000 Balance -200 / -200 653.417 / 153.417 -500 / 153.417 Weight 98.883 kg Intake: IV 850 / 850 1153.417 / 1153.417 Output: Urine 1050 / 1050 500 / 1000 500 / 1000 Other: Urine Color Yellow Yellow Yellow Urine Appearance Clear Clear Clear Urine Odor None Voiding Methods Urinal Urinal Urinal Data Completed and Pending Labs on day of discharge: Labs from last 24 hours 09/24/20 09/24/20 09/23/20 07:34 07:34 22:05 WBC 10.62 D RBC 2.98 L Hgb 9.2 L Hct 27.5 L MCV 92.3 MCH 30.9 MCHC 33.5 RDW 12.4 Plt Count 171 MPV 10.4 Immature Gran % 0.5 Neutrophils % 78.9 Lymphocytes % 11.7 Monocytes % 7.4 Eosinophils % 1.3 Basophils % 0.2 Nucleated RBC % 0 Absolute Neutrophils 8.38 H Absolute Lymphocytes 1.24 Absolute Monocytes 0.79 Absolute Eosinophils 0.14 Absolute Basophils 0.02 PT INR APTT Sodium 138 Potassium 4.1 Chloride 104 Carbon Dioxide 25.1 Anion Gap 8.9 BUN 23 H Creatinine 1.24 Estimated GFR/1.73 m2 56.53 Glucose 156 H D Calcium 8.6 Magnesium Total Bilirubin AST ALT Alkaline Phosphatase Troponin I < 0.05 Total Protein Albumin COVID-19 PCR Nasopharyn COVID-19 PCR SARS-CoV-2 Source SARS-CoV-2 (PCR) Ref Test Perform Site 09/23/20 09/23/20 09/23/20 17:41 16:55 16:47 WBC RBC Hgb Hct MCV MCH MCHC RDW Plt Count MPV Immature Gran % Neutrophils % Lymphocytes % Monocytes % Eosinophils % Basophils % Nucleated RBC % Absolute Neutrophils Absolute Lymphocytes Absolute Monocytes Absolute Eosinophils Absolute Basophils PT INR APTT Sodium Potassium Chloride Carbon Dioxide Anion Gap BUN Creatinine Estimated GFR/1.73 m2 Glucose Calcium Magnesium Total Bilirubin AST ALT Alkaline Phosphatase Troponin I < 0.05 Total Protein Albumin COVID-19 PCR Pending Nasopharyn COVID-19 PCR Pending SARS-CoV-2 Source Pending SARS-CoV-2 (PCR) Pending Ref Test Perform Site Pending 09/23/20 09/23/20 09/23/20 14:24 14:24 14:24 WBC 16.54 H RBC 3.33 L Hgb 10.2 L Hct 30.5 L MCV 91.6 MCH 30.6 MCHC 33.4 RDW 12.0 Plt Count 193 MPV 10.0 Immature Gran % 0.4 Neutrophils % 86.7 Lymphocytes % 6.0 Monocytes % 6.4 Eosinophils % 0.4 Basophils % 0.1 Nucleated RBC % 0 Absolute Neutrophils 14.34 H Absolute Lymphocytes 0.99 L Absolute Monocytes 1.06 H Absolute Eosinophils 0.07 Absolute Basophils 0.02 PT 9.8 INR 1.0 APTT 19.7 L Sodium 135 L Potassium 4.5 Chloride 100 Carbon Dioxide 24.4 Anion Gap 10.6 BUN 29 H Creatinine 1.62 H Estimated GFR/1.73 m2 41.52 Glucose 264 H Calcium 8.7 Magnesium 0.9 L Total Bilirubin 0.5 AST 11 L ALT 22 Alkaline Phosphatase 90 Troponin I < 0.05 Total Protein 6.8 Albumin 3.4 COVID-19 PCR Nasopharyn COVID-19 PCR SARS-CoV-2 Source SARS-CoV-2 (PCR) Ref Test Perform Site 09/23/20 17:41 Blood Blood Culture - Pending 09/23/20 17:41 Blood Blood Culture - Pending Preliminary micro results at discharge 09/23/20 17:41 Blood Culture - Pending Blood 09/23/20 17:41 Blood Culture - Pending Blood [facility] Medical History (Updated 09/24/20 @ 13:58 by Rafiq Boss) Anemia Arteriosclerotic heart disease Benign prostatic hyperplasia Blindness of both eyes Dyspnea on exertion GERD without esophagitis Hyperlipidemia Hypothyroidism Ischemic optic neuropathy Malaise and fatigue MDS (myelodysplastic syndrome) Multiple lung nodules on CT Myocardial infarction Primary open angle glaucoma of both eyes, severe stage Seasonal allergic rhinitis Type 2 diabetes mellitus with hyperglycemia Vitamin B12 deficiency Surgical History H/O angioplasty (~1994) [facility] H/O heart artery stent (~2013) 3 stents per pt [facility] History of cataract surgery multiple surgeries between [id number] [facility] per pt History of nasal surgery S/P tonsillectomy (~1950) Status post glaucoma surgery multiple surgeries per pt between [id number] [facility] Family History Uncle Asthma Breast cancer Diabetes Heart disease Aunt Breast cancer Diabetes Daughter Diabetes Social History Smoking/Tobacco Use Status: Former Tobacco Use Quit Date: 11/17/82 Pack-years: 40 Tobacco: How many years used: 30 Smoking risk assessment performed?: Yes Alcohol Intake: current Alcohol Intake frequency: 0-2 drinks per day Alcohol type: wine Drug use: Never Substance use type: does not use Household members: spouse and family Housing: house Do you need help understanding health information?: Often current occupation: Retired Sexually active: No Do you think of yourself as: straight/heterosexual Current gender identity: male What is your relationship status?: Panel score (0-1 are the most socially isolated patients): 1 Do you feel safe at home: Yes Do you feel safe in your relationship?: Yes
[2020-09-26 13:01] LABS: SARS-CoV-2 RNA Not Detected (NotDetected); SARS-CoV-2 RNA Source Nasopharynx
== END 2020-09-24 14:46 | disposition home or self-care (01) ==
LOC: ER 17:42 → MS 18:56
PROVIDERS: Admitting Provider Internal Medicine; Emergency Provider Physician Assistant; PCP Family Medicine; Visit Provider Internal Medicine
DX: J18.9 Pneumonia, unspecified organism (principal); R07.89 Other chest pain; R91.8 Other nonspecific abnormal finding of lung field; E11.65 Type 2 diabetes mellitus with hyperglycemia; R06.00 Dyspnea, unspecified; I10 Essential (primary) hypertension; E78.5 Hyperlipidemia, unspecified; K21.9 Gastro-esophageal reflux disease without esophagitis; E03.9 Hypothyroidism, unspecified; N40.0 Benign prostatic hyperplasia without lower urinary tract symptoms; I45.10 Unspecified right bundle-branch block; I25.10 Atherosclerotic heart disease of native coronary artery without angina pectoris; D64.9 Anemia, unspecified; I25.2 Old myocardial infarction; D46.9 Myelodysplastic syndrome, unspecified
CPT/HCPCS: 36415; 71275; 80048; 80053; 87040; 93005; 96361; 96365; 96366; 96367; 96368; 99220; 99225; 99239; 99285; J1650; U0003; 83735; 84484; 85025; 85610; 85730; 93010; 94640; 94667; 99217; G0378; J0295; J0456; J0696; J3490; J7620

== ENCOUNTER 2020-10-09 01:37 | Outpatient (CLI) | payer MEDICARE, BC, SELFPAY ==
--- NOTE | 2020-10-09 09:17 | DI.RAD_ITS ---
EXAM: XR CHEST 2V PA LATERAL CLINICAL HISTORY: Follow-up pneumonia,J18.9 TECHNIQUE: 2D digital imaging was performed. COMPARISON: CT CT CHEST PE CTA from 09/23/2020 FINDINGS: MEDIASTINUM: Calcified aorta. HEART: Normal size. Coronary artery stents. PULMONARY VASCULATURE: Normal. LUNGS: Clear. PLEURAL SPACE: No pleural effusion or pneumothorax. BONE:Degenerative disc changes. Degenerative changes of both shoulders. IMPRESSION: No acute pulmonary findings. DATA REPOSITORY: RADIATION DOSE DELIVERED:
== END 2020-10-09 01:57 ==
PROVIDERS: PCP Family Medicine; Visit Provider Family Medicine
DX: J18.9 Pneumonia, unspecified organism (principal)
CPT/HCPCS: 71046

== ENCOUNTER 2020-10-17 10:50 | Outpatient (REF) | payer MEDICARE, BC, SELFPAY ==
[2020-10-17 12:07] LABS: C Diff PCR Negative (Negative)
== END 2020-10-17 11:10 ==
LOC: LBN 10:50
PROVIDERS: PCP Family Medicine; Visit Provider Family Medicine
DX: R19.7 Diarrhea, unspecified (principal)
CPT/HCPCS: 87493

== ENCOUNTER 2021-05-10 09:45 | Emergency (ER) | payer OTHER, SELFPAY ==
[2021-05-10] VITALS (69 sets, daily range): BP systolic 129–172; BP diastolic 53–134; PULSE 56–77; RESP 8–21; TEMP 36.5; O2SAT 96–100
--- NOTE | 2021-05-10 09:45 | RT.EKG_ITS ---
APPROVED REPORT Exam: Resting ECG Reason for Exam: chest pains Patient Location: E HR:69 bpm ECG Measurements Heart Rate 69 AXIS TN 208 P 53 QRSd 147 QRS 65 QT 463 T 56 QTc 468 Conclusion Sinus rhythm...normal P axis, V-rate 60- 99 Multiform ventricular premature complexes...short R-R, variable morphology Right bundle branch block...QRSd>120, terminal axis(90,270). RBBB. PVCs. No STEMI. I have reviewed and interpreted ECG and agree with software generated interpretation.
--- NOTE | 2021-05-10 10:14 | W.ED.GENAD ---
Discharge Plan Disposition Patient Disposition: HOME Condition: Stable Discharge Details Clinical Impression: Chest pain Primary Care Provider: Mike Gómez ED Provider: Beverly Hugo Meds and New Rx's Prescriptions: No Action multivitamin Tablet 1 tab PO DAILY RF: 0 aspirin [Adult Aspirin Regimen] 81 mg tablet,delayed release (DR/EC) 81 mg PO DAILY RF: 0 cholecalciferol (vitamin D3) [Vitamin D3] 50 mcg (2,000 unit) capsule 50 mcg PO BID RF: 0 mecobalamin (vitamin B12) 5,000 mcg tablet,disintegrating 5,000 mcg PO DAILY RF: 0 amlodipine 5 mg tablet 5 mg PO BID Qty: 90 RF: 3 atorvastatin 80 mg tablet 80 mg PO QHS Qty: 90 RF: 3 (DME) Accu-Chek Goldie Plus test strp Strip See Rx Instructions .ROUTE .MEDSUPPLY Qty: 100 RF: 3 (DME) blood-glucose meter [Accu-Chek Goldie Plus Meter] Misc See Rx Instructions .ROUTE .MEDSUPPLY Qty: 1 RF: 0 glimepiride 2 mg tablet 2 mg PO BID Qty: 180 RF: 3 levothyroxine 50 mcg tablet 50 mcg PO DAILY Qty: 90 RF: 3 lisinopril 40 mg tablet 40 mg PO DAILY Qty: 90 RF: 3 metformin 1,000 mg tablet 1,000 mg PO BID Qty: 180 RF: 3 omeprazole 20 mg capsule,delayed release(DR/EC) 20 mg PO DAILY Qty: 90 RF: 3 Januvia 100 mg tablet 100 mg PO DAILY Qty: 90 RF: 3 tamsulosin 0.4 mg capsule 0.4 mg PO DAILY Qty: 90 RF: 3 carvedilol 25 mg tablet 25 mg PO BID Qty: 180 RF: 3 furosemide 40 mg tablet 40 mg PO DAILY Qty: 90 RF: 3 albuterol sulfate 90 mcg/actuation HFA aerosol inhaler 2 puff inhalation QID PRNQty: 18 RF: 0 Discharge Instructions Instructions: Chest Pain (ED) Additional Instructions: Follow up with primary care provider or Cardiology in 3-5 days to schedule outpatient echocardiogram and/or stress test. Return to ED sooner if any worsening chest pain, shortness of breath, fever, vomiting, or concerns. Continue to take your previously prescribed medications as directed Today your cardiac work-up was within normal limits no evidence of acute NE. Referrals: Mike Gómez DO [Primary Care Provider] - Discharge Data Discharge Date/Time-TO BE ENTERED AT DEPARTURE: 05/10/21 16:35 Medical Decision Making <Beverly Hugo - Last Filed: 05/12/21 00:41> 68-year-old male with a history of hypothyroidism, NE, type 2 diabetes, hyperlipidemia, coronary artery disease presents to the ER with chief complaint chest pain midepigastric discomfort which began at 8 AM today. He describes this as pressure denies any nausea, vomiting, diarrhea, shortness of breath, dizziness denies any radiation of pain. He did take a 81 mg chewable aspirin prior to arrival. 0955: EKG was reviewed by Colleen Herrera DO ER attending, please see her official read and report. Old EKG available for review no significant change right bundle branch block noted. At this time cardiac work-up ordered including serial troponins, chest x-ray 243 mg chewable baby aspirin given lipase added onto labs. Differential at this time includes but not limited to coronary artery disease, NSTEMI, STEMI, GERD, cholecystitis. CBC shows normocytic anemia which appears mostly at baseline for patient. Hemoglobin is 9.9, hematocrit 29.7 1129:: PT 10.2, INR 1.0 sodium 140 potassium 5.1, anion gap 9.1 BUN 27, creatinine 1.5 GFR is 45.26 glucose is 247, magnesium 1.4 albumin 3.3 initial troponin is within normal limits. Lipase is also within normal limits 128 BNP added on the labs which is pending at this time. XR CHEST 2V PA LATERAL EXAM: XR CHEST 2V PA LATERAL CLINICAL HISTORY: chest pain. TECHNIQUE: 2D digital imaging was performed. COMPARISON: CR XR CHEST 2V PA LATERAL from 10/09/2020 FINDINGS: Heart size is normal. The mediastinum is not widened. Mild hyperinflation. No new confluent infiltrates nor pleural effusions. Mild increased markings left lung base are probably vascular. No pulmonary edema. No pneumothorax IMPRESSION: Mild increased markings left lower lobe. No pleural effusions. 1148: Patient reevaluation, sleeping at this time breathing eupneic at bedside updated on plan of care and results. They verbalized understanding agreement to wait for the second troponin which is due in approximately 1 hour. Denies any chest pain at this time. Magnesium is infusing without difficulty, normal saline decreased to 150 an hour. 1524: Patient was given 1 0.4 mg sublingual nitroglycerin which did not little to nothing to relieve his 2 out of 10 abdominal pressure. Discussed results of work-up with and patient extensively at bedside. They are requesting transfer to [facility]. I did discuss [facility] bed capacity at this time however I will consult with cardiology. is concerned that this will get worse if he gets discharged home however she also reports that their insurance does not cover her hospital stay here. CT abdomen pelvis ordered to rule out AAA or other intra-abdominal pathology. I did discuss the option for admission here for further observation and cardiac rule out. However they are requesting to be discharged at this time. CT abdomen pelvis canceled patient request and family to be discharged they report that they will present to [facility] for further evaluation and care. Dr. Tejada ER attending was asked to come and speak with patient and family see his note above. Patient was hemodynamically stable throughout stay alert and oriented at time of discharge <Silas Tejada, DO - Last Filed: 05/10/21 23:33> I was asked to speak with the patient by Andressa Garcia. Please refer to her HPI, physical exam assessment and plan. Patient came in for chest pain does have a history of chest pain, he received serial troponins and a negative EKG here. Family is very concerned that it is cardiac related and they are also very concerned that the patient's hospital bill will not be covered by their insurance as they did contact their insurance provider and this was specifically told to them. Patient and family are a bit frustrated with the current scenario. I had an extensive and long conversation with the patient about what we do have available here for testing and further diagnostic work-up, and at this time through shared decision-making process family has made it very clear that they would like to leave to visit other potential facilities which might have more significant diagnostic work-up capabilities. We did discuss with him the risks and benefits of this, as well as the potential risk for acute life-threatening etiology that would occur during their transit. Additionally we did also offer to keep the patient here for further assessment, but at this time patient and family would like to leave. The decision was made amicably, fully understanding the risk and benefits of the decisions. HPI <Beverly Hguo - Last Filed: 05/12/21 00:41> General Mode of arrival: wheelchair. Date/Time Provider Initiated Documentation: 05/10/21 10:07. Limitations to Documentation: no limitations. Information obtained by: patient, RN notes reviewed and old records reviewed. HPI Narrative: 68-year-old male with a history of hypothyroidism, NE, type 2 diabetes, hyperlipidemia, coronary artery disease presents to the ER with chief complaint chest pain midepigastric discomfort which began at 8 AM today. He describes this as pressure denies any nausea, vomiting, diarrhea, shortness of breath, dizziness denies any radiation of pain. He did take a 81 mg chewable aspirin prior to arrival. Related Data Home Medications Medication Instructions Recorded Confirmed aspirin 81 mg tablet,delayed 81 mg PO DAILY 06/23/20 05/10/21 release cholecalciferol (vitamin D3) 50 50 mcg PO BID 06/23/20 05/10/21 mcg (2,000 unit) capsule mecobalamin (vitamin B12) 5,000 5,000 mcg PO DAILY tab 06/23/20 05/10/21 mcg disintegrating tablet multivitamin 1 tab PO DAILY 06/23/20 05/10/21 albuterol sulfate 2 puff INHALATION QID PRN #18 g 09/24/20 05/10/21 amlodipine 5 mg tablet 5 mg PO BID #90 tab 11/16/20 05/10/21 atorvastatin 80 mg tablet 80 mg PO QHS #90 tab 11/16/20 05/10/21 blood sugar diagnostic #100 ea 11/16/20 blood-glucose meter #1 ea 11/16/20 carvedilol 25 mg tablet 25 mg PO BID #180 tab 11/16/20 05/10/21 glimepiride 2 mg tablet 2 mg PO BID #180 tab 11/16/20 05/10/21 levothyroxine 50 mcg tablet 50 mcg PO DAILY #90 tab 11/16/20 05/10/21 lisinopril 40 mg tablet 40 mg PO DAILY #90 tab 11/16/20 05/10/21 metformin 1,000 mg tablet 1,000 mg PO BID #180 tab 11/16/20 05/10/21 omeprazole 20 mg capsule,delayed 20 mg PO DAILY #90 cap 11/16/20 05/10/21 release sitagliptin 100 mg tablet 100 mg PO DAILY #90 tab 11/16/20 05/10/21 tamsulosin 0.4 mg capsule 0.4 mg PO DAILY #90 cap 11/16/20 05/10/21 furosemide 40 mg tablet 40 mg PO DAILY #90 tab 11/30/20 05/10/21 Previous Rx's Medication Instructions Recorded albuterol sulfate 2 puff INHALATION QID PRN #18 g 09/24/20 amlodipine 5 mg tablet 5 mg PO BID #90 tab 11/16/20 atorvastatin 80 mg tablet 80 mg PO QHS #90 tab 11/16/20 blood sugar diagnostic #100 ea 11/16/20 blood-glucose meter #1 ea 11/16/20 carvedilol 25 mg tablet 25 mg PO BID #180 tab 11/16/20 glimepiride 2 mg tablet 2 mg PO BID #180 tab 11/16/20 levothyroxine 50 mcg tablet 50 mcg PO DAILY #90 tab 11/16/20 lisinopril 40 mg tablet 40 mg PO DAILY #90 tab 11/16/20 metformin 1,000 mg tablet 1,000 mg PO BID #180 tab 11/16/20 omeprazole 20 mg capsule,delayed 20 mg PO DAILY #90 cap 11/16/20 release sitagliptin 100 mg tablet 100 mg PO DAILY #90 tab 11/16/20 tamsulosin 0.4 mg capsule 0.4 mg PO DAILY #90 cap 11/16/20 furosemide 40 mg tablet 40 mg PO DAILY #90 tab 11/30/20 Allergies Allergy/AdvReac Type Severity Reaction Status Date / Time brimonidine Allergy Unknown Verified 05/10/21 09:55 clopidogrel Allergy Unknown Rash Verified 05/10/21 09:55 dorzolamide Allergy Unknown Verified 05/10/21 09:55 latanoprost Allergy Unknown Verified 05/10/21 09:55 General Stated Complaint: Chest Pain REY: 2 Review of Systems <Beverly Hugo - Last Filed: 05/12/21 00:41> Narrative: Constitutional: Negative for weight loss, alert and oriented, well groomed, obese body habitus, appears comfortable. HEENT: Denies trauma, headaches, blurry vision, nasal discharge, sore throat, trouble swallowing. Chest: Denies palpitations, irregular rhythm,. Respiratory: Denies Shortness of breath, cough, hemoptysis. GI: Denies nausea, vomiting, diarrhea, constipation. Positive mid epigastric abdominal pressure : Denies dysuria, hematuria, flank pain, rectal bleeding. Neuro: Denies dizziness, blurry vision, weakness, syncope, headache or facial numbness. Hematologic: Denies easy bruising, intolerance to heat or cold, hair loss. ON LICENSE OF [facility] <Beverly Hugo - Last Filed: 05/12/21 00:41> Medical History Anemia Arteriosclerotic heart disease Benign prostatic hyperplasia Blindness of both eyes BPH loc w urin obs/LUTS Dyspnea on exertion GERD without esophagitis Hyperlipidemia Hypothyroidism Ischemic optic neuropathy Malaise and fatigue MDS (myelodysplastic syndrome) Multiple lung nodules on CT Myocardial infarction Primary open angle glaucoma of both eyes, severe stage Seasonal allergic rhinitis Type 2 diabetes mellitus with hyperglycemia Vitamin B12 deficiency Surgical History H/O angioplasty (~1994) [facility] H/O heart artery stent (~2013) 3 stents per pt [facility] History of cataract surgery multiple surgeries between [id number] [facility] per pt History of nasal surgery S/P tonsillectomy (~1949) Status post glaucoma surgery multiple surgeries per pt between [id number] [facility] Family History Uncle Asthma Breast cancer Diabetes Heart disease Aunt Breast cancer Diabetes Daughter Diabetes Social History Smoking/Tobacco Use Status: Former Tobacco Use Quit Date: 11/17/82 Pack-years: 40 Tobacco: How many years used: 30 Smoking risk assessment performed?: Yes Alcohol Intake: current Alcohol Intake frequency: 0-2 drinks per day Alcohol type: wine Drug use: Never Substance use type: does not use Household members: spouse and family Housing: house Do you need help understanding health information?: Often current occupation: Retired Sexually active: No Do you think of yourself as: straight/heterosexual Current gender identity: male What is your relationship status?: Panel score (0-1 are the most socially isolated patients): 1 Do you feel safe at home: Yes Do you feel safe in your relationship?: Yes Exam <Beverly Kiser Filed: 05/12/21 00:41> Narrative Exam Narrative: Constitutional: Alert and oriented x3. Appears stated age. Normal body habitus. Head: Normocephalic, no trauma. Eyes: Pupils PERRLA, Red reflex noted, EOM's intact. Eyelids symmetrical without lesions, discharge, or swelling. ENT: Bilateral TM's WNL, External ear normal to inspection, no mastoid TTP, swelling, or erythema, Nasal turbinates WNL, no nasal discharge. Normal dentition, Posterior pharynx WNL, no exudate. Chest: RRR, Normal S1, S2, distal pulses intact. Resp: Lungs clear to auscultation bilaterally, no wheezes, rales, or rhonchi. Abdomen: Mid epigastric tenderness with palpation and reported pressure. Soft, nondistended. Musculoskeletal: Unable to assess gait 5/5 strength to all four extremities. 2+ pitting edema noted to bilateral lower extremities patient states that he normally wears a compression sock. Skin: No suspicious rashes or lesions. Capillary refill less than 2 sec. Neurologic: Cranial nerves II-XII intact. Alert and oriented x 3. DTR's intact. Hematologic/Lymphatic: No ecchymosis, no lymphadenopathy. Course <Beverly iKser Filed: 05/12/21 00:41> Vital Signs Vital signs: Vital Signs Temperature 36.5 C 05/10/21 09:50 Pulse 68 05/10/21 09:50 Respiratory Rate 20 05/10/21 09:50 Blood Pressure 158/71 H 05/10/21 09:50 Temperature 36.5 C 05/10/21 09:50 Temperature Source Temporal Artery Scan 05/10/21 09:50 Pulse 68 05/10/21 09:50 Respiratory Rate 20 05/10/21 09:50 Respiratory Effort Non-Labored 05/10/21 09:54 Blood Pressure 158/71 H 05/10/21 09:50 Blood Pressure Position Sitting 05/10/21 09:50 Oxygen Delivery Method Room Air 05/10/21 09:50 Oxygen Flow Rate 0 05/10/21 09:50 Pain Level 8 05/10/21 09:50
--- NOTE | 2021-05-10 10:15 | DI.RAD_ITS ---
Exam(s) XR CHEST 2V PA LATERAL EXAM: XR CHEST 2V PA LATERAL CLINICAL HISTORY: chest pain. TECHNIQUE: 2D digital imaging was performed. COMPARISON: CR XR CHEST 2V PA LATERAL from 10/09/2020 FINDINGS: Heart size is normal. The mediastinum is not widened. Mild hyperinflation. No new confluent infilt rates nor pleural effusions. Mild increased markings left lung base are probably vascular. No pulmo nary edema. No pneumothorax IMPRESSION: Mild increased markings left lower lobe. No pleural effusions DATA REPOSITORY: RADIATION DOSE DELIVERED:
--- NOTE | 2021-05-10 10:17 | NUR.NOTE ---
patient took one 81mg ASA at 0800. I gave 243mg of asa instead of 324mg. I spoke with Beverly about dosage:
[2021-05-10 10:18] LABS: Abs Immature Grans 0.03 10^3/uL (0.0-0.06); Absolute Basophil Count 0.03 10^3/uL (0.0-0.2); Absolute Eosinophil Count 0.11 10^3/uL (0.0-0.7); Absolute Lymphocyte Count 1.09 10^3/uL (1.2-3.4); Absolute Monocyte Count 0.57 10^3/uL (0.1-0.8); Absolute Neutrophil Count 4.15 10^3/uL (1.2-6.7); Basophils % 0.5; Eosinophils % 1.8; HCT 29.7 % (40.0-50.0); HGB 9.9 g/dL (13.5-17.5); Immature Grans % 0.5; Lymphocytes % 18.2; MCH 30.9 pg (27.0-33.0); MCHC 33.3 % (32.0-36.0); MCV 92.8 fL (80-95); MPV 9.7 fL (8.0-11.0); Monocytes % 9.5; Neutrophils % 69.5; Nucleated RBC 0 %; Platelet Count 190 10^3/uL (130-400); RDW-SD 43.9 fL; WBC 5.98 10^3/uL (4.4-10.8)
[2021-05-10] MEDS: Aspirin 81 MG CHEW 243 MG CH (10:21)
[2021-05-10 10:40] LABS: ALT 32 U/L (16-63); AST 15 U/L (15-37); Albumin 3.3 g/dL (3.4-5.0); Alkaline Phosphatase 64 U/L (46-116); Anion Gap 9.1 mmol/L (3-11); BUN 27 mg/dL (7-18); Bilirubin, Total 0.5 mg/dL (0.2-1.0); CO2 25.9 mmol/L (21.0-32.0); CREATININE 1.5 mg/dL (0.70-1.30); Calcium 8.7 mg/dL (8.5-10.1); Chloride 105 mmol/L (98-107); Estimated GFR 45.26 (mL/min/1.73m2); Glucose 247 mg/dL (74-106); Magnesium 1.4 mg/dL (1.8-2.4); Potassium 5.1 mmol/L (3.5-5.1); Sodium 140 mmol/L (136-145); Total Protein 6.5 g/dL (6.4-8.2)
[2021-05-10 10:41] LABS: Troponin I < 0.05 ng/mL (<0.06)
[2021-05-10 10:48] LABS: Lipase 128 U/L (73-393)
[2021-05-10 10:50] LABS: Prothrombin Time 10.2 sec (9.3-11.0)
[2021-05-10 10:56] LABS: Bilirubin Negative (Negative); Blood Negative (Negative); Clarity Clear (Clear); Glucose Negative (Negative); Ketones Negative (Negative); Leukocyte Esterase Negative (Negative); Nitrite Negative (Negative); Urobilinogen 0.2 EU/dL (Up TO 0.2); pH 5.5 (5-8)
[2021-05-10 11:07] LABS: Bacteria Rare HPF (Negative); C & S Indicated? No; Casts Negative LPF (Negative); Crystals Negative HPF (Negative); Epithelial Cells Negative HPF (Negative); Mucus Negative (Negative); Other Cells Negative (Negative); RBC 0-2 HPF (0-2); WBC Negative HPF (0-5)
[2021-05-10] MEDS: Normal Saline 1,000 ML 250 ML IV (11:08)
[2021-05-10] MEDS: MAGNESIUM SULFATE 1 GM/100 ML BAG IVPB (11:08)
[2021-05-10 11:41] LABS: NT-proBNP 103 pg/mL (<300)
--- NOTE | 2021-05-10 13:00 | RT.EKG_ITS ---
APPROVED REPORT Exam: Resting ECG Reason for Exam: chest pain Patient Location: E HR:67 bpm ECG Measurements Heart Rate 67 AXIS ID 212 P 72 QRSd 158 QRS 40 QT 453 T 58 QTc 476 Conclusion Sinus rhythm...normal P axis, V-rate 60- 99 Borderline prolonged ID interval...ID >212, V-rate 50- 90 Right bundle branch block...QRSd>120, terminal axis(90,270). Sinus. RBBB. No STEMI. I have reviewed and interpreted ECG and agree with software generated interpretation.
[2021-05-10 13:29] LABS: Troponin I < 0.05 ng/mL (<0.06)
[2021-05-10] MEDS: nitroGLYcerin 0.4 MG TAB SL (15:09)
== END 2021-05-10 16:35 | disposition home or self-care (01) ==
PROVIDERS: Emergency Provider Registered Nurse Emergency; PCP Family Medicine
DX: R07.9 Chest pain, unspecified (principal); R06.09 Other forms of dyspnea
CPT/HCPCS: 36415; 36416; 80053; 82962; 83690; 93005; 96361; 96365; 99284; 71046; 81003; 81015; 83735; 83880; 84484; 85025; 85610; 93010; 99283; J3475

== ENCOUNTER 2021-07-12 03:46 | Outpatient (CLI) | payer OTHER, SELFPAY ==
[2021-07-12 09:28] LABS: Anion Gap 10.6 mmol/L (3-11); BUN 63 mg/dL (7-18); CO2 28.4 mmol/L (21.0-32.0); CREATININE 2.1 mg/dL (0.70-1.30); Calcium 8.8 mg/dL (8.5-10.1); Chloride 99 mmol/L (98-107); Glucose 122 mg/dL (74-106); Potassium 4.3 mmol/L (3.5-5.1); Sodium 138 mmol/L (136-145)
[2021-07-12 11:04] LABS: Cholesterol 175 mg/dL (<200); HDL Cholesterol 37 mg/dL (40-60); Triglyceride 462 mg/dL (<150)
[2021-07-12 11:18] LABS: LDL CHOLESTEROL 76 mg/dL (<100)
== END 2021-07-12 03:47 | disposition home or self-care (01) ==
PROVIDERS: PCP Family Medicine; Visit Provider Nurse Practitioner Adult Health
DX: I50.32 Chronic diastolic (congestive) heart failure (principal); E78.5 Hyperlipidemia, unspecified
CPT/HCPCS: 36415; 80048; 80061; 83721

== ENCOUNTER 2021-10-21 20:17 | Inpatient (IN) | payer OTHER, SELFPAY ==
[2021-10-21] VITALS (40 sets, daily range): BP systolic 80–149; BP diastolic 50–105; PULSE 61–92; RESP 8–25; TEMP 36.3–36.4; O2SAT 94–100
--- NOTE | 2021-10-21 20:00 | RT.EKG_ITS ---
APPROVED REPORT Exam: Resting ECG Reason for Exam: chest pain Patient Location: E HR:65 bpm ECG Measurements Heart Rate 65 AXIS WA 212 P 70 QRSd 164 QRS 67 QT 437 T [id number] QTc 455 Conclusion Sinus rhythm...normal P axis, V-rate 60- 99 Borderline prolonged WA interval...WA >212, V-rate 50- 90 Right bundle branch block...QRSd>120, terminal axis(90,270) Physician: Rate 65, intervals normal, sinus rhythm, right bundle branch block, no significant ST elev ation or depression. No STEMI. No Q waves. No change from prior EKG on 05/10/2021
--- NOTE | 2021-10-21 20:33 | ED.GENADUL_ITS ---
Discharge Plan Disposition Patient Disposition: [facility] INPATIENT Condition: Stable Discharge Details Clinical Impression: Abdominal pain Primary Care Provider: Mike Gómez ED Provider: Silas Tejada Home Meds and New Rx's Prescriptions: No Action multivitamin Tablet 1 tab PO DAILY RF: 0 aspirin [Adult Aspirin Regimen] 81 mg tablet,delayed release (DR/EC) 81 mg PO DAILY RF: 0 cholecalciferol (vitamin D3) [Vitamin D3] 50 mcg (2,000 unit) capsule 50 mcg PO BID RF: 0 mecobalamin (vitamin B12) 5,000 mcg tablet,disintegrating 5,000 mcg PO DAILY RF: 0 atorvastatin 80 mg tablet 80 mg PO QHS Qty: 90 RF: 3 (DME) blood-glucose meter [Accu-Chek Goldie Plus Meter] Misc See Rx Instructions .ROUTE .MEDSUPPLY Qty: 1 RF: 0 levothyroxine 50 mcg tablet 50 mcg PO DAILY Qty: 90 RF: 3 lisinopril 40 mg tablet 40 mg PO DAILY Qty: 90 RF: 3 metformin 1,000 mg tablet 1,000 mg PO BID Qty: 180 RF: 3 omeprazole 20 mg capsule,delayed release(DR/EC) 20 mg PO DAILY Qty: 90 RF: 3 Januvia 100 mg tablet 100 mg PO DAILY Qty: 90 RF: 3 tamsulosin 0.4 mg capsule 0.4 mg PO DAILY Qty: 90 RF: 3 carvedilol 25 mg tablet 25 mg PO BID Qty: 180 RF: 3 amlodipine 5 mg tablet 5 mg PO BID Qty: 180 RF: 3 torsemide 20 mg tablet 10 mg PO DAILY RF: 0 (DME) Accu-Chek Goldie Plus test strp Strip See Rx Instructions .ROUTE .MEDSUPPLY Qty: 100 RF: 6 albuterol sulfate 90 mcg/actuation HFA aerosol inhaler 2 puff inhalation QID PRNQty: 18 RF: 0 glimepiride 1 mg tablet 2 mg PO DAILY AM RF: 0 Medical Decision Making This is a 76-year-old male with a past medical history of coronary artery disease and stenting 10 years ago in [facility], type 2 diabetes, myelodysplastic syndrome, hypothyroidism, hypertension, high cholesterol, carotid artery disease, chronic diastolic heart failure, who presents today for evaluation of chest pain. Patient states when he woke up this morning he had feelings of mild indigestion. He took a Tums this slightly improved his symptoms. And then again this evening after having a dinner of beef gaby, he again developed what he describes as a achy pressure-like sensation in his left chest. He took some antiacid's again and this did not improve his symptoms. He did take 2 nitros and this also did not improve his symptoms. The patient then contacted EMS, upon their arrival his blood pressure was in the 70s, and he was pale and diaphoretic. They gave him a 250 cc bolus of normal saline brought him to the ER for further evaluation. Patient's pain at this time is described as 7 out of 10, and in the left chest with achiness and pressure. No radiation to the arms. He does admit to a very mild cough. He denies any recent weight gain. He denies missing any of his furosemide. He denies any increased shortness of breath over the last few days. He denies any exertional chest pain over the last few days. He states that he is unsure if this feels like his last heart attack. No other complaints this time. No other modifying factors. Physical exam is unremarkable, no significant peripheral edema. She does have m ild crackle in the left lower lung field. No reproducible chest wall pain. No pulse asymmetry. Bedside ultrasound demonstrates no pericardial effusion, and good cardiac contractility throughout. Differential includes reflux, indigestion, but also atypical ACS, or potential mild CHF based on his history. We will evaluate for these etiologies. We will give nitroglycerin, followed by GI cocktail, followed by morphine to help elucidate the potential causative agent of his symptoms. Will monitor closely and reassess. 9:04 PM During the patient's time here on interval update his pain his transition from an achiness in his chest to a severe chest pain as well as abdominal pain. This has brought about notable writhing in bed secondary to the pain. This change in both disposition and pain is concerning to me, it increases on my mind the differential for dissection. We will add a CTA for assessment. 9:19 PM Patient's laboratory work-up has returned, no white count, hemoglobin slightly low at 9.2. Electrolytes normal, creatinine is higher than normal at 1.7 and GFR is 39, however in spite of this I am still very concerned for his acute notable change in pain and symptoms in addition to his writhing nature of the pain at this time in spite of morphine. I do feel that a CTA certainly still indicated in this scenario. 11:[address] scan results have returned, no evidence of dissection, there are few small lung nodules which the patient is well aware of. Mild consolidation is likely just atelectasis in the left lung base. No other acute chest process though. Additionally the CT. There is no evidence of obstruction or diverticulitis. Patient does have evidence of a celiac artery severe nonostial stenosis which is likely related to the median arcuate ligament crossing. No other acute process otherwise. Lactate is normal. With the findings of the celiac artery am concerned for an atypical presentation of intestinal angina although there is no evidence of zechariah mesenteric ischemia. Patient's pain seems to come and go here in the ED, going from severe to mild intermittently. I did contact [facility] vascular surgery and I discussed the case with Dr. Justin. At this time upon his review of the images and the case he does not feel that the patient's symptoms are consistent with mesenteric ischemia requiring emergent surgical management. He does feel that further endoscopic evaluation is indicated to make sure there is no significant stomach or intestinal etiology causing the symptoms otherwise. At this time with the patient persistent on and off pain I do not feel that he would be a good candidate for discharge home. I do feel that admission for pain management, trending of lactates, would be reasonable at this time. Family agrees with this plan. Discussed the case with hospitalist Dr. Roman. He agrees with the assessment and plan. I have extensively reviewed the treatment plan with the patient. I have addressed all patient concerns at this time. I have also discussed the plan with the admitting physician and they agree with the current assessment and plan and have agreed to assume responsibility for the patient. All parties demonstrate verbal understanding and agreement with our assessment and plan at this time. The documentation in this chart was dictated using [employer] dictation software. Please excuse any dictation errors. EKG 20: 26 Rate 65, intervals normal, sinus rhythm, right bundle branch block, no significant ST elevation or depression. No STEMI. No Q waves. No change from prior EKG on 05/10/2021 IMPRESSION: 1. Thoracic aorta atherosclerosis. No aneurysm or dissection. 2. Several small lung nodules in the left lung are likely granulomas. For patients at low risk (minimal or absent history of smoking and of other known risk factors), no routine follow-up is indicated. For patients at high risk (history of smoking or of other known risk factors), consider optional CT Chest at 12 months. (Reference: Randal). 3. Posterior left lung base subsegmental consolidation is likely atelectatic. 4. Emphysematous lung changes and bronchiectasis features. 5. Minimal left pleural effusion. 6. Mild cardiac enlargement. Previous coronary artery stent. 7. Degenerative thoracic spine. IMPRESSION: 1. No evidence of bowel obstruction or edema. Extensive colonic diverticulosis without features of acute diverticulitis. Small hiatal hernia noted. 2. Aorto bi-iliac atherosclerosis. no zechariah aortic aneurysm. 3. 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 See sagittal series 8, image 66. 4. Small gallstones. No acute biliary tract findings. 5. Fatty liver change. 6. Degenerative lumbar spine disease. Multilevel severe spinal stenosis. Thank you for allowing us to participate in the care of your patient. Dictated and Authenticated by: Parveen Horn MD 10/21/2021 10:19 PM Eastern Time ([place] & [place]) HPI General Date/Time Provider Initiated Documentation: 10/21/21 20:33 . HPI Narrative: This is a 76-year-old male with a past medical history of coronary artery disease and stenting 10 years ago in [facility], type 2 diabetes, myelodysplastic syndrome, hypothyroidism, hypertension, high cholesterol, carotid artery disease, chronic diastolic heart failure, who presents today for evaluation of chest pain. Patient states when he woke up this morning he had feelings of mild indigestion. He took a Tums this slightly improved his symptoms. And then again this evening after having a dinner of beef [employer], he again developed what he describes as a achy pressure-like sensation in his left chest. He took some antiacid's again and this did not improve his symptoms. He did take 2 nitros and this also did not improve his symptoms. The patient then contacted EMS, upon their arrival his blood pressure was in the 70s, and he was pale and diaphoretic. They gave him a 250 cc bolus of normal saline brought him to the ER for further evaluation. Patient's pain at this time is described as 7 out of 10, and in the left chest with achiness and pressure. No radiation to the arms. He does admit to a very mild cough. He denies any recent weight gain. He denies missing any of his furosemide. He denies any increased shortness of breath over the last few days. He denies any exertional chest pain over the last few days. He states that he is unsure if this feels like his last heart attack. No other complaints this time. No other modifying factors. Related Data Home Medications Medication Instructions Recorded Confirmed aspirin 81 mg tablet,delayed 81 mg PO DAILY 06/23/20 10/21/21 release cholecalciferol (vitamin D3) 50 50 mcg PO BID 06/23/20 10/21/21 mcg (2,000 unit) capsule mecobalamin (vitamin B12) 5,000 5,000 mcg PO DAILY tab 06/23/20 10/21/21 mcg disintegrating tablet multivitamin 1 tab PO DAILY 06/23/20 10/21/21 albuterol sulfate 2 puff INHALATION QID PRN #18 g 09/24/20 10/21/21 atorvastatin 80 mg tablet 80 mg PO QHS #90 tab 11/16/20 10/21/21 blood-glucose meter #1 ea 11/16/20 08/03/21 carvedilol 25 mg tablet 25 mg PO BID #180 tab 11/16/20 10/21/21 levothyroxine 50 mcg tablet 50 mcg PO DAILY #90 tab 11/16/20 10/21/21 lisinopril 40 mg tablet 40 mg PO DAILY #90 tab 11/16/20 10/21/21 metformin 1,000 mg tablet 1,000 mg PO BID #180 tab 11/16/20 10/21/21 omeprazole 20 mg capsule,delayed 20 mg PO DAILY #90 cap 11/16/20 10/21/21 release sitagliptin 100 mg tablet 100 mg PO DAILY #90 tab 11/16/20 10/21/21 tamsulosin 0.4 mg capsule 0.4 mg PO DAILY #90 cap 11/16/20 10/21/21 amlodipine 5 mg tablet 5 mg PO BID #180 tab 06/11/21 10/21/21 torsemide 20 mg tablet 10 mg PO DAILY tab 07/13/21 10/21/21 blood sugar diagnostic #100 ea 09/04/21 glimepiride 2 mg PO DAILY AM 10/21/21 10/21/21 Previous Rx's Medication Instructions Recorded albuterol sulfate 2 puff INHALATION QID PRN #18 g 09/24/20 atorvastatin 80 mg tablet 80 mg PO QHS #90 tab 11/16/20 blood-glucose meter #1 ea 11/16/20 carvedilol 25 mg tablet 25 mg PO BID #180 tab 11/16/20 levothyroxine 50 mcg tablet 50 mcg PO DAILY #90 tab 11/16/20 lisinopril 40 mg tablet 40 mg PO DAILY #90 tab 11/16/20 metformin 1,000 mg tablet 1,000 mg PO BID #180 tab 11/16/20 omeprazole 20 mg capsule,delayed 20 mg PO DAILY #90 cap 11/16/20 release sitagliptin 100 mg tablet 100 mg PO DAILY #90 tab 11/16/20 tamsulosin 0.4 mg capsule 0.4 mg PO DAILY #90 cap 11/16/20 amlodipine 5 mg tablet 5 mg PO BID #180 tab 06/11/21 blood sugar diagnostic #100 ea 09/04/21 Allergies Allergy/AdvReac Type Severity Reaction Status Date / Time brimonidine Allergy Unknown Verified 10/21/21 20:27 clopidogrel Allergy Unknown Rash Verified 10/21/21 20:27 dorzolamide Allergy Unknown Verified 10/21/21 20:27 latanoprost Allergy Unknown Verified 10/21/21 20:27 General Stated Complaint: Chest Pain REY: 2 Review of Systems All systems reviewed & are unremarkable except as noted in HPI and below [facility] Active Problem List Coronary artery disease involving [place] coronary artery of [place] heart (Acute) Chronic diastolic heart failure (Acute) Essential hypertension (Acute) Chronic renal insufficiency, stage III (moderate) (Acute) Chest pain (Acute) BPH loc w urin obs/LUTS (Chronic) Hypothyroidism (Chronic) Vitamin B12 deficiency (Acute) Anemia (Chronic) Dyspnea on exertion (Acute) Malaise and fatigue (Acute) Primary open angle glaucoma of both eyes, severe stage (Acute) Seasonal allergic rhinitis (Acute) Multiple lung nodules on CT (Chronic) GERD without esophagitis (Acute) Benign prostatic hyperplasia (Chronic) Arteriosclerotic heart disease (Acute) Hyperlipidemia (Acute) Blindness of both eyes (Acute) Ischemic optic neuropathy (Acute) MDS (myelodysplastic syndrome) (Acute) Myocardial infarction (Chronic) Type 2 diabetes mellitus with hyperglycemia (Acute) Surgical History H/O angioplasty (~1994) [facility] H/O heart artery stent (~2013) 3 stents per pt [facility] History of cataract surgery multiple surgeries between [id number] [facility] [facility] per pt History of nasal surgery S/P tonsillectomy (~1950) Status post glaucoma surgery multiple surgeries per pt between [id number] [facility] [place] [facility] Family History Uncle Asthma Breast cancer Diabetes Heart disease Aunt Breast cancer Diabetes Daughter Diabetes Social History Smoking/Tobacco Use Status: Former Tobacco Use Quit Date: 11/17/82 Pack-years: 40 Tobacco: How many years used: 30 Smoking risk assessment performed?: Yes Alcohol Intake: current Alcohol Intake frequency: 0-2 drinks per day Alcohol type: wine Drug use: Never Substance use type: does not use Household members: spouse and family Housing: house Do you need help understanding health information?: Often current occupation: Retired Sexually active: No Do you think of yourself as: straight/heterosexual Current gender identity: male What is your relationship status?: Panel score (0-1 are the most socially isolated patients): 1 Do you feel safe at home: Yes Do you feel safe in your relationship?: Yes Exam Narrative Exam Narrative: 1.Const: Well-nourished, Well-developed, appearing stated age 2.Eyes: PERRL, no conjunctival injection, and symmetrical lids. 3.ENT: Atraumatic external nose and ears. Moist MM. Neck: Symmetric, trachea midline, No thyromegaly. 4.CVS: +S1/S2, No murmurs or gallops. Peripheral pulses 2+ and equal in all extremities. Brisk capillary refill in all extremities. 5.RESP: Unlabored respiratory effort. Clear to auscultation bilaterally except for small crackle noted in the left lower lung field. No wheezes rales or rhonchi otherwise 6.GI: Soft, Nontender/Nondistended, No hepatosplenomegaly. No guarding or rebound. Minimally distended, but no tenderness whatsoever. 7.MSK: Normocephalic/Atraumatic, Extremities w/o deformity or ttp No cyanosis or clubbing, Normal movement of all extremities, no pitting edema 8.Skin: Warm, Dry. No rashes or lesions. 9.Neuro: equity manager II-XII grossly intact. Sensation grossly intact, no focal neurologic deficits. 10.Psych: (AAO) x3. Appropriate mood and affect Course Vital Signs Vital signs: Vital Signs Temperature 36.3 C L 10/21/21 20:21 Pulse 68 10/21/21 20:21 Respiratory Rate 12 10/21/21 20:21 Blood Pressure 148/54 H 10/21/21 20:21 Pulse Oximetry 98 10/21/21 20:21 Temperature 36.3 C L 10/21/21 20:21 Temperature Source Temporal Artery Scan 10/21/21 20:21 Pulse 68 10/21/21 20:21 Respiratory Rate 12 10/21/21 20:21 Blood Pressure 148/54 H 10/21/21 20:21 Blood Pressure Position Supine 10/21/21 20:21 Pulse Oximetry 98 10/21/21 20:21 Oxygen Delivery Method Room Air 10/21/21 20:21 Oxygen Flow Rate 0 10/21/21 20:21 Pain Level 6 10/21/21 20:21 PAWSS Have you Been Recently Intoxicated or Drunk Within the Last 30 days?: No Have you Ever Experienced Previous Episodes of Alcohol Withdrawal?: No Have you ever Experienced Withdrawal Seizures?: No Have you ever Experienced Delirium Tremens(DT)s?: No Have you ever undergone Alcohol Rehabilitation Treatment (i.e, inpt ot outpatient treatment programs)?: No Have you ever Experienced Blackouts?: No Have you ever Combined Alcohol with other Downers within the last 90 days?: No Have you ever Combined Alcohol with any other Substance of Abuse during the last 90 days?: No Result: 0
[2021-10-21] MEDS: nitroGLYcerin 0.4 MG TAB SL (20:35)
[2021-10-21 20:51] LABS: Abs Immature Grans 0.05 10^3/uL (0.0-0.06); Absolute Basophil Count 0.03 10^3/uL (0.0-0.2); Absolute Eosinophil Count 0.13 10^3/uL (0.0-0.7); Absolute Lymphocyte Count 1.26 10^3/uL (1.2-3.4); Absolute Monocyte Count 0.84 10^3/uL (0.1-0.8); Absolute Neutrophil Count 7.56 10^3/uL (1.2-6.7); Basophils % 0.3; Eosinophils % 1.3; HCT 28.2 % (40.0-50.0); HGB 9.2 g/dL (13.5-17.5); Immature Grans % 0.5; Lymphocytes % 12.8; MCH 30.3 pg (27.0-33.0); MCHC 32.6 % (32.0-36.0); MCV 92.8 fL (80-95); MPV 9.8 fL (8.0-11.0); Monocytes % 8.5; Neutrophils % 76.6; Nucleated RBC 0 %; Platelet Count 169 10^3/uL (130-400); RBC 3.04 10^6/uL (4.36-5.78); RDW 13.2 % (11.8-14.1); WBC 9.87 10^3/uL (4.4-10.8)
--- NOTE | 2021-10-21 21:02 | DI.CT_ITS ---
Exam(s) CT THORAX ABD/PEL CTA EXAM: CT THORAX ABD/PEL CTA CLINICAL HISTORY: chest pain, eval for dissection, or intestinal obs. TECHNIQUE: Imaging Protocol: Axial computed tomography images with coronal and sagittal reformatted images were created and reviewed CONTRAST MATERIAL: Intravenous: Omnipaque 350 Contrast volume:100 ml Oral: None COMPARISON: CT CT CHEST PE CTA from 09/23/2020 FINDINGS: CHEST: AORTA: The diameter of the ascending thoracic aorta is upper normal. Diameter of the aortic arch upp er normal. Diameter of the descending thoracic aorta is also upper normal (2.5 cm). There is some m ural calcification in the thoracic aorta but without evidence of in were displacement of this calcifi cation. ABDOMINAL AORTA: Also peripheral calcification. Very mild fusiform dilatation of the distal most abd ominal aorta just above the bifurcation, exhibiting maximum diameter of this level of 2.4 cm. Arteri al megaly does not extend into the common iliac arteries which both exhibit upper normal diameters. There is some in were displaced mural calcification on the posterior wall of the left common iliac ar deon which may be chronic chronic dissection at this level, nonocclusive. No significant stenosis in the common and external iliac arteries nor in the internal iliac arteries nor in the common femoral arteries. AORTIC BRANCHES: Superior mesenteric artery is patent. No ostial stenosis. No intraluminal filling defects to suggest emboli. There is stenosis at the origin of the celiac artery, best seen on the sagittal images and most proba edward related to median arcuate ligament compression. There is mild poststenotic dilatation of the antwon iac artery (1.1 Cm). Renal arteries: Calcific ostial stenosis bilaterally. There also appears to be a focal stenosis in t he right renal artery 1 cm distal to its origin. Kidneys exhibit normal size. Inferior mesenteric artery is patent. LUNGS: Mild increased markings in left lung base posterior basal segment left lower lobe. There is a lso a noncalcified round nodule measuring 4 millimeters in the posterior basal segment of the left lo wer lobe. Also slightly smaller subpleural nodule noted in the lateral basal segment of the left low er lobe. Another 3 millimeter nodule seen subpleural location in the lingular segment of the left rylee ng. In the opposite-right lung there are benign-appearing mild increased markings in the anterior segment of the right upper lobe. No other focal findings in the right lung and no pleural effusion.. MEDIASTINUM: There is no hilar nor mediastinal adenopathy. Visualized thyroid unremarkable. CARDIAC: Heart size upper normal. Coronary artery calcification is noted. There is no pericardial e ffusion. ABDOMEN: There is no evidence of abdominal aortic aneurysm nor dissection.There is no aneurysmal dilatation of the common iliac arteries.The celiac and superior mesenteric arteries are patent. There is no ascites. LIVER: There is a flash enhancing 1 cm by 0.6 cm focus in the right hepatic lobe seen on this arteria l phase study. Probably a benign hemangioma. GALLBLADDER/BILIARY: Subtle density in the dependent wall of the gallbladder is probably cholelithias is. No gallbladder wall edema. CBD is not dilated. PANCREAS: No evidence of pancreatic mass nor dilatation of the pancreatic duct. SPLEEN: Spleen is not enlarged. There are no intrasplenic lesions. Splenic and portal veins are dwyer nt. ADRENALS: There are no significant adrenal masses. KIDNEYS: Multiple cysts in both kidneys. The largest is in the left kidney and extends from parapelv ic outwards and measures 6.7 cm by 4.8 cm. The largest cyst in the opposite-right kidney measures 2. 6 x 2.5 cm. No solid renal masses. There is a small nonobstructive calculus in left kidney which me asures 4 millimeters. No hydronephrosis. No solid renal masses.. ABDOMINAL AORTA: As above LYMPH NODES: There is no retroperitoneal nor para-aortic adenopathy. No obvious mesenteric masses. ABDOMINAL WALL: No evidence of significant anterior abdominal wall hernia. Fat containing right ingu inal hernia. GI: There is no evidence of bowel obstruction, free air, nor abscess. PELVIS: LYMPH NODES: There is no intrapelvic nor inguinal adenopathy. GI: No evidence of appendicitis.Diverticulosis noted throughout the colon. There is no evidence of a cute diverticulitis. URINARY BLADDER: Right-sided Hutch diverticulum measuring 1.4 x 1.3 cm. REPRODUCTIVE: Prostate size upper normal. Seminal vesicles unremarkable. OSSEOUS: Multilevel degenerative facet arthropathy in the lumbar spine noted. No lytic osseous lesio ns. IMPRESSION: 1. Thoracic aortic atherosclerotic changes but no thoracic aneurysm nor dissection evident. There is mild fusiform dilatation of the most inferior aspect of the abdominal aorta at the inferior mesenter ic artery level. Maximum diameter is 2.5 cm at this level. Arterial megaly does not appear to sindy nue into the iliac arteries. 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 2. Benign-appearing increased markings in the posterior basal segment of the left lower lobe and ante rior segment right upper lobe. No air bronchograms. 3. Noncalcified left lung nodules noted, largest measuring 6 millimeters. Recommend follow-up CT sca n in 6 months. 4. Extensive colonic diverticulosis without evidence of acute diverticulitis. Also no appendicitis. 5. Celiac artery significant non ostial stenosis which appears to be related to compression by the c rossing in median arcuate ligament . 6. Small gallstones. No evidence of acute cholecystitis. 7. Mild hepatic steatosis. 8. Multiple bilateral benign renal cysts. No solid renal masses. 4 millimeter nonobstructive calcu efra noted in the left kidney. Right sided Hutch diverticulum in the urinary bladder. No radiopaque calculi seen in the urinary bladder lumen. Bladder is not distended RADIATION DOSE DELIVERED: 1,274.46mGy.cm Total DLP DATA REPOSITORY: All CT scans at this facility are submitted to the National Radiology Data Registry (NRDR) Dose Index Registry (DIR) with the [employer] (A[employer]). RADIATION OPTIMIZATION: All CT scans at this facility use at least one of these dose optimization te chniques: automated exposure control; mA and/or kV adjustment per patient size (includes targeted exa ms where dose is matched to clinical indication); or iterative reconstruction.
[2021-10-21 21:10] LABS: ALT 27 U/L (16-63); AST 11 U/L (15-37); Albumin 3.2 g/dL (3.4-5.0); Alkaline Phosphatase 73 U/L (46-116); BUN 35 mg/dL (7-18); Bilirubin, Total 0.4 mg/dL (0.2-1.0); CREATININE 1.7 mg/dL (0.70-1.30); Calcium 8.5 mg/dL (8.5-10.1); Chloride 105 mmol/L (98-107); Estimated GFR 39.18 (mL/min/1.73m2); Glucose 175 mg/dL (74-106); Potassium 4.7 mmol/L (3.5-5.1); Sodium 139 mmol/L (136-145); Total Protein 6.3 g/dL (6.4-8.2)
[2021-10-21 21:13] LABS: Troponin I < 0.05 ng/mL (<0.06)
[2021-10-21] MEDS: Omnipaque 350 MG/ML 100 ML BTL IJ (21:17)
[2021-10-21] MEDS: Normal Saline Flush 10 ML SYR IVP (21:24)
[2021-10-21 21:36] LABS: Lipase 97 U/L (73-393); NT-proBNP 131 pg/mL (<300)
--- NOTE | 2021-10-21 22:20 | DI.VRAD_ITS ---
PROCEDURE INFORMATION: Exam: CTA Chest With Contrast Exam date and time: 10/21/2021 9:12 PM Age: 76 years old Clinical indication: Other: Chest pain, eval for dissection or intestinal obs; Other: Pain and discomfort TECHNIQUE: Imaging protocol: Computed tomographic angiography of the chest with contrast. 3D rendering (Not supervised by radiologist): MIP and/or 3D reconstructed images were created by the technologist. Contrast volume: 100 ml; Contrast route: INTRAVENOUS (IV); COMPARISON: CT CHEST PE CTA 09/23/2020 3:43 PM FINDINGS: Pulmonary arteries: Normal. No pulmonary emboli. Aorta: Thoracic aorta atherosclerosis. No aneurysm or dissection. Lungs: Minor scarring the mid anterior right upper lobe segment. Linear opacification noted. Several left lung nodules are noted. In the mid lateral segment of the left upper lobe is a rounded subpleural 4 mm nodule. Series 5, image 32. The left lower lobe has several small rounded nodules. Largest measuring 6 mm on series 5, image 43. A smaller subpleural nodule is seen on image 44 more laterally. There is also a small subpleural nodule seen on image 42 posterolaterally. Minor subsegmental left lung base consolidation is likely atelectatic. Mild bronchial wall thickening suggesting bronchitis. This could be acute or chronic. There are features suggesting emphysema of both lungs. Pleural spaces: Minimal left pleural effusion. Heart: Mild cardiac enlargement. No pericardial effusion. Appearance suggesting previous coronary artery stent on the right side. Left-sided coronary artery atherosclerosis. Lymph nodes: Unremarkable. No enlarged lymph nodes. Bones/joints: Degenerative thoracic spine changes. Old mild compression fracture of T7. Multiple vertebral bodies with benign-appearing hemangiomas.. No acute fracture. Soft tissues: Unremarkable. IMPRESSION: 1. Thoracic aorta atherosclerosis. No aneurysm or dissection. 2. Several small lung nodules in the left lung are likely granulomas. For patients at low risk (minimal or absent history of smoking and of other known risk factors), no routine follow-up is indicated. For patients at high risk (history of smoking or of other known risk factors), consider optional CT Chest at 12 months. (Reference: Randal). 3. Posterior left lung base subsegmental consolidation is likely atelectatic. 4. Emphysematous lung changes and bronchiectasis features. 5. Minimal left pleural effusion. 6. Mild cardiac enlargement. Previous coronary artery stent. 7. Degenerative thoracic spine. REFERENCES: Randal Moreno et al. Guidelines for Management of Incidental Pulmonary Nodules Detected on CT Images: From the Fleischner Society 2017. Radiology. 2017;284(1):228-243. PROCEDURE INFORMATION: Exam: CTA Abdomen and Pelvis With Contrast Exam date and time: 10/21/2021 9:12 PM Age: 76 years old Clinical indication: Other: Chest pain, eval for dissection or intestinal obs; Other: Pain and discomfort TECHNIQUE: Imaging protocol: Computed tomographic angiography of the abdomen and pelvis with contrast material. 3D rendering (Not supervised by radiologist): MIP and/or 3D reconstructed images were created by the technologist. Contrast volume: 100 ml; Contrast route: INTRAVENOUS (IV); COMPARISON: CT CHEST PE CTA 09/23/2020 3:43 PM FINDINGS: Aorta: Abdominal aorta with atherosclerotic calcium. No aneurysmal change. Celiac trunk and mesenteric arteries: Celiac artery non osteal severe stenosis. This is best appreciated on sagittal series 8, image 66. Features suggest median arcuate ligament as the etiology. Superior mesenteric artery origin is widely patent. Renal arteries: Right renal artery origin atherosclerotic calcium with mild stenosis. Left renal artery origin atherosclerotic calcium with rybq-or-jksybvmg stenosis. Right iliac arteries: Right iliac artery atherosclerotic calcium. No significant stenosis. No aneurysm. Left iliac arteries: Left iliac artery atherosclerotic calcium. No significant stenosis. No aneurysm. Liver: No mass. Fatty infiltration Gallbladder and bile ducts: Gallstones. No acute biliary tract findings. Pancreas: Mild pancreatic atrophy. No acute inflammation. Spleen: The spleen is normal in size, contour and attenuation. Adrenal glands: The adrenal glands are normal in size and contour bilaterally. Kidneys and ureters: Multiple bilateral benign renal cysts. Largest is in the midportion of the left kidney measuring 6.7 centimetres. No suspicious renal lesions. No ultrasound imaging follow-up is recommended based on MIPS criteria. Stomach and bowel: Gastric morphology is unremarkable. No edema. No gastric outlet obstruction. Small hiatal hernia. Small bowel loops are normal in course and caliber. There is no mucosal edema or bowel wall thickening. No obstructive features. Large bowel without acute edema or obstruction. There is prominent diverticulosis without acute diverticulitis. Appendix: A non inflamed appendix is seen. Series 5, images 115 through 113. Intraperitoneal space: No free fluid in the abdomen or pelvis. Lymph nodes: Unremarkable. No enlarged lymph nodes. Urinary bladder: Urinary bladder is unremarkable. There is a small diverticulum off of the right-side of the bladder measuring approximately 10 mm. See coronal series 9, image 67. Reproductive: Mild prostatic enlargement. Recommend clinical correlation. Bones/joints: Degenerative lumbar spine disease. No acute compression fracture. L5 vertebral body hemangioma. Multilevel severe spinal stenosis. Soft tissues: Small right inguinal hernia containing fat. No acute strangulation. IMPRESSION: 1. No evidence of bowel obstruction or edema. Extensive colonic diverticulosis without features of acute diverticulitis. Small hiatal hernia noted. 2. Aorto bi-iliac atherosclerosis. no zechariah aortic aneurysm. 3. 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 See sagittal series 8, image 66. 4. Small gallstones. No acute biliary tract findings. 5. Fatty liver change. 6. Degenerative lumbar spine disease. Multilevel severe spinal stenosis. Dictated and Authenticated by: Parveen Horn MD. Ordering:SILVIO Rosen MD
[2021-10-21] MEDS: HYDROmorphone 2 MG/ML VIAL 1 MG IVP (22:33)
[2021-10-21 22:52] LABS: Lactate 1.4 mmol/L (0.6-1.4)
[2021-10-21 23:05] LABS: Source Nasal/Nares
[2021-10-21 23:11] LABS: Troponin I < 0.05 ng/mL (<0.06)
[2021-10-21 23:44] LABS: Bilirubin Negative (Negative); Blood Trace-intact (Negative); Clarity Clear (Clear); Glucose 100 mg/dL (Negative); Ketones Negative (Negative); Leukocyte Esterase Negative (Negative); Nitrite Negative (Negative); Specific Gravity 1.015 (1.005-1.025); Urobilinogen 0.2 EU/dL (Up TO 0.2); pH 5.5 (5-8)
[2021-10-21 23:46] LABS: Bacteria Rare HPF (Negative); C & S Indicated? No; Casts Negative LPF (Negative); Crystals Negative HPF (Negative); Epithelial Cells Few HPF (Negative); Mucus Negative (Negative); WBC Negative HPF (0-5)
[2021-10-21] MEDS: Normal Saline 1,000 ML 150 ML IV (23:47)
[2021-10-21] MEDS: Pantoprazole 40 MG VIAL IVP (23:47)
[2021-10-22] VITALS (20 sets, daily range): BP systolic 136–182; BP diastolic 57–82; PULSE 70–99; RESP 20–23; TEMP 36.6–38.4; O2SAT 96–98
--- NOTE | 2021-10-22 | DI.US_ITS ---
Exam(s) US ABDOMEN LIMITED EXAM: US ABDOMEN LIMITED CLINICAL HISTORY: ?acute cholecystitis TECHNIQUE: Right upper quad ultrasound abdomen performed using standard protocol. COMPARISON: CT CT THORAX ABD/PEL CTA from 10/21/[address] THORAX ABD/PEL CTA from 10/21/2021 FINDINGS: There is no ascites evident. LIVER: There are no hepatic lesions evident nor dilatation of intrahepatic ducts. Hepatic steatosis noted. GALLBLADDER/BILIARY: There are small gallstones noted. A few are located in the region of the gallb ladder neck. The gallbladder is not overly distended and the gallbladder wall does not appear edemat ous. There is no pericholecystic fluid. The common hepatic duct isnot dilated, measuring 4-5mm at the level of jm hepatis. PANCREAS: There is no evidence of pancreatic mass nor dilatation of the pancreatic duct. RIGHT KIDNEY:No evidence of solid mass, calculus, nor hydronephrosis. Contains benign cysts, the larg est measuring 3.3 x 2.9 cm. ABDOMINAL AORTA AND IVC: Visualized portions exhibit normal caliber. IMPRESSION: 1. Cholelithiasis with small intraluminal gallstones as described above. No obvious acute cholecyst itis. No dilatation of the biliary tree, both intra and extrahepatic. Hepatic steatosis noted 2. Benign right kidney cysts. Please note that recent CT scan revealed cysts in both kidneys, the l argest cyst being in the left kidney and measuring 6.7 x 4.7 cm. 3. There is no ascites. DATA REPOSITORY:
--- NOTE | 2021-10-22 00:22 | HPE_ITS ---
Date of service: 10/22/21 Time of Service: 00:22 Assessment and Plan Assessment and plan (1) Abdominal pain: Status: Acute Assessment and plan: Epigastric pain. I think the celiac artery findings are more likely than not an incidental finding but I would certainly keep celiac artery syndrome in consideration. More broadly I would at this point describe this as unspecified UGI lesion and would advise NPO, PPI with plan for EGD. I would also include diabetic gastroparesis in the differential and would consider trial Reglan if symptoms should recur or if answers are not otherwise forthcoming. Again would also consider further evaluation for celiac artery impingement syndrome with further vascular studies. Usual meds as is otherwise except would hold diabetic meds while NPO. Reviewed ADs, requests Full Code. History of Present Illness History of Present Illness Chief Complaint: upper abdominal pain Narrative: 76 male with multiple medical problems, including DM, CAD, GERD, myelodysplasia, CRF -- here with one day of intermittent epigastric pain. This began shortly after awakening this morning. Pain is described as non-radiating, and unrelated to position. Took TUMS w/o effect. then burped and felt a little better and pain eventually resolved and he went back to sleep. he was fine thoughout the day until approx 1.5 hours after supper when he had a recurrence of the pain. Had single episode of vomiting (undigested food). No coffee ground emesis and normal BM today, with no h/o melena. EMS were called and he was instructed to take NTG, w/o effect. In ER findings of note for white count 9, Hct 28 (approx baseline); normal electrolytes; normal lipase and transaminases; BUN 35, Creat 1.7 (approx baseline), and negative trop and EKG. He received GI cocktail w/o effect. CT abdomen of chio for severe stenosis of celiac artery, suggestive of arcuate liga ment impingement. [place] was [place] [facility] [place] felt this was not likely responsible for symptoms and advised further UGI work up. I was asked to evaluate for admission. At present time patient has received (in addition to previously noted NTG and GI cocktail) Protonix, ASA, MS 4 mg x 2 and Dilaudid 1 mg. He states he feels comfortable at present. As a final note, the son-in-law reports that the patient has been burping more than usual today, though patient states this has not had any further effect on the pain other than with the initial deep tissue massage therapist episode. Review of Systems All systems reviewed & are unremarkable except as noted in HPI and below [facility] Active Problem List Abdominal pain (Acute) Coronary artery disease involving [place] coronary artery of [place] heart (Acute) Chronic diastolic heart failure (Acute) Essential hypertension (Acute) Chronic renal insufficiency, stage III (moderate) (Acute) Chest pain (Acute) BPH loc w urin obs/LUTS (Chronic) Hypothyroidism (Chronic) Vitamin B12 deficiency (Acute) Anemia (Chronic) Dyspnea on exertion (Acute) Malaise and fatigue (Acute) Primary open angle glaucoma of both eyes, severe stage (Acute) Seasonal allergic rhinitis (Acute) Multiple lung nodules on CT (Chronic) GERD without esophagitis (Acute) Benign prostatic hyperplasia (Chronic) Arteriosclerotic heart disease (Acute) Hyperlipidemia (Acute) Blindness of both eyes (Acute) Ischemic optic neuropathy (Acute) MDS (myelodysplastic syndrome) (Acute) Myocardial infarction (Chronic) Type 2 diabetes mellitus with hyperglycemia (Acute) Surgical History H/O angioplasty (~1994) [facility] H/O heart artery stent (~2013) 3 stents per pt [facility] History of cataract surgery multiple [place] [id number] [place] History of nasal surgery S/P tonsillectomy (~1950) Status post glaucoma surgery multiple surgeries [place] [id number] [place] Family History Uncle Asthma Breast cancer Diabetes Heart disease Aunt Breast cancer Diabetes Daughter Diabetes Social History Smoking/Tobacco Use Status: Former Tobacco Use Quit Date: 11/17/82 Pack-years: 40 Tobacco: How many years used: 30 Smoking risk assessment performed?: Yes Alcohol Intake: current Alcohol Intake frequency: 0-2 drinks per day Alcohol type: wine Drug use: Never Substance use type: does not use Household members: spouse and family Housing: house Do you need help understanding health information?: Often current occupation: Retired Sexually active: No Do you think of yourself as: straight/heterosexual Current gender identity: male What is your relationship status?: Panel score (0-1 are the most socially isolated patients): 1 Do you feel safe at home: Yes Do you feel safe in your relationship?: Yes Meds Allergies and Home Medications Allergies Allergy/AdvReac Type Severity Reaction Status Date / Time brimonidine Allergy Unknown Verified 10/21/21 20:27 clopidogrel Allergy Unknown Rash Verified 10/21/21 20:27 dorzolamide Allergy Unknown Verified 10/21/21 20:27 latanoprost Allergy Unknown Verified 10/21/21 20:27 Home Medications Medication Instructions Recorded Confirmed Type aspirin 81 mg tablet,delayed 81 mg PO DAILY 06/23/20 10/21/21 History release cholecalciferol (vitamin D3) 50 50 mcg PO BID 06/23/20 10/21/21 History mcg (2,000 unit) capsule mecobalamin (vitamin B12) 5,000 5,000 mcg PO DAILY tab 06/23/20 10/21/21 History mcg disintegrating tablet multivitamin 1 tab PO DAILY 06/23/20 10/21/21 History albuterol sulfate 2 puff INHALATION QID PRN #18 g 09/24/20 10/21/21 Rx atorvastatin 80 mg tablet 80 mg PO QHS #90 tab 11/16/20 10/21/21 Rx blood-glucose meter #1 ea 11/16/20 08/03/21 Rx carvedilol 25 mg tablet 25 mg PO BID #180 tab 11/16/20 10/21/21 Rx levothyroxine 50 mcg tablet 50 mcg PO DAILY #90 tab 11/16/20 10/21/21 Rx lisinopril 40 mg tablet 40 mg PO DAILY #90 tab 11/16/20 10/21/21 Rx metformin 1,000 mg tablet 1,000 mg PO BID #180 tab 11/16/20 10/21/21 Rx omeprazole 20 mg capsule,delayed 20 mg PO DAILY #90 cap 11/16/20 10/21/21 Rx release sitagliptin 100 mg tablet 100 mg PO DAILY #90 tab 11/16/20 10/21/21 Rx tamsulosin 0.4 mg capsule 0.4 mg PO DAILY #90 cap 11/16/20 10/21/21 Rx amlodipine 5 mg tablet 5 mg PO BID #180 tab 06/11/21 10/21/21 Rx torsemide 20 mg tablet 10 mg PO DAILY tab 07/13/21 10/21/21 History blood sugar diagnostic #100 ea 09/04/21 Rx glimepiride 2 mg PO DAILY AM 10/21/21 10/21/21 History Exam Narrative Exam Narrative: 138/59, 79, 36.4, 18, 96% RA. HEENT anicteric; neck supple; lungs clear; heart RRR w/o MRG; abdomen hyperactive bowel sounds, soft and NT; rectal deferred; extremities w/o edema, pulses 2+/=; neuro Ox3, lucid, moves all 4s Results Labs Result diagrams: 10/21/21 20:35 10/21/21 20:35 Labs: Laboratory Results - last 24 hr 10/21/21 10/21/21 10/21/21 20:35 20:35 22:42 WBC 9.87 RBC 3.04 L Hgb 9.2 L Hct 28.2 L MCV 92.8 MCH 30.3 MCHC 32.6 RDW 13.2 Plt Count 169 MPV 9.8 Immature Gran % 0.5 Neutrophils % 76.6 Lymphocytes % 12.8 Monocytes % 8.5 Eosinophils % 1.3 Basophils % 0.3 Nucleated RBC % 0 Absolute Neutrophils 7.56 H Absolute Lymphocytes 1.26 Absolute Monocytes 0.84 H Absolute Eosinophils 0.13 Absolute Basophils 0.03 VBG Lactate 1.4 Sodium 139 Potassium 4.7 Chloride 105 Carbon Dioxide 24.0 Anion Gap 10.0 BUN 35 H Creatinine 1.7 H Estimated GFR/1.73 m2 39.18 Glucose 175 H Calcium 8.5 Total Bilirubin 0.4 AST 11 L ALT 27 Alkaline Phosphatase 73 Troponin I < 0.05 NT-Pro-B Natriuret Pep 131 Total Protein 6.3 L Albumin 3.2 L Lipase 97 Urine Color Urine Clarity Urine pH Ur Specific [place] Urine Protein Urine Ketones Urine Blood Urine Nitrite Urine Bilirubin Urine Urobilinogen Ur Leukocyte Esterase Urine RBC Urine WBC Ur Epithelial Cells Urine Crystals Urine Bacteria Urine Casts Urine Mucus Ur Culture Indicated? Urine Glucose COVID-19 Source 10/21/21 10/21/21 10/21/21 22:48 22:55 23:34 WBC RBC Hgb Hct MCV MCH MCHC RDW Plt Count MPV Immature Gran % Neutrophils % Lymphocytes % Monocytes % Eosinophils % Basophils % Nucleated RBC % Absolute Neutrophils Absolute Lymphocytes Absolute Monocytes Absolute Eosinophils Absolute Basophils VBG Lactate Sodium Potassium Chloride Carbon Dioxide Anion Gap BUN Creatinine Estimated GFR/1.73 m2 Glucose Calcium Total Bilirubin AST ALT Alkaline Phosphatase Troponin I < 0.05 NT-Pro-B Natriuret Pep Total Protein Albumin Lipase Urine Color Yellow Urine Clarity Clear Urine pH 5.5 Ur Specific [place] 1.015 Urine Protein Trace H Urine Ketones Negative Urine Blood Trace-intact H Urine Nitrite Negative Urine Bilirubin Negative Urine Urobilinogen 0.2 Ur Leukocyte Esterase Negative Urine RBC 3-5 H Urine WBC Negative Ur Epithelial Cells Few Urine Crystals Negative Urine Bacteria Rare Urine Casts Negative Urine Mucus Negative Ur Culture Indicated? No Urine Glucose 100 COVID-19 Source Nasal/Nares Last Vital Signs Temp 36.4 C L 10/21/21 21:33 Pulse 79 10/21/21 23:53 Resp 18 10/21/21 23:53 BP 138/59 L 10/21/21 23:53 Pulse Ox 96 10/21/21 23:53 PAWSS Have you Been Recently Intoxicated or Drunk Within the Last 30 days?: No Have you Ever Experienced Previous Episodes of Alcohol Withdrawal?: No Have you ever Experienced Withdrawal Seizures?: No Have you ever Experienced Delirium Tremens(DT)s?: No Have you ever undergone Alcohol Rehabilitation Treatment (i.e, inpt ot outpatient treatment programs)?: No Have you ever Experienced Blackouts?: No Have you ever Combined Alcohol with other Downers within the last 90 days?: No Have you ever Combined Alcohol with any other Substance of Abuse during the last 90 days?: No Result: 0
[2021-10-22] MEDS: Lactated Ringers 1,000 ML 100 ML IV ×2 (02:41→13:36)
[2021-10-22] MEDS: Levothyroxine 50 MCG TAB PO (05:25)
[2021-10-22] MEDS: Acetaminophen 500 MG TAB 1000 MG PO ×2 (06:27→15:19)
[2021-10-22] MEDS: Torsemide 20 MG TAB 10 MG PO (08:18)
[2021-10-22] MEDS: amLODIPine 5 MG TAB PO ×2 (08:19→19:43)
[2021-10-22] MEDS: Tamsulosin 0.4 MG CAPCR PO (08:19)
[2021-10-22] MEDS: Lisinopril 20 MG TAB 40 MG PO (08:20)
[2021-10-22] MEDS: Carvedilol 25 MG TAB PO ×2 (08:20→19:43)
--- NOTE | 2021-10-22 08:54 | PDOC.CMIN ---
- If Service Date Differs Date of service: 10/22/21 Time of Service: 08:54 Care Management Initial Assess REASON FOR HOSPITALIZATION:: Epigastric Pain PAST MEDICAL HISTORY/PAST SURGICAL HISTORY:: Active Problem List . Abdominal pain (Acute). Coronary artery disease involving [place] coronary artery of [place] heart (Acute). Chronic diastolic heart failure (Acute). Essential hypertension (Acute). Chronic renal insufficiency, stage III (moderate) (Acute). Chest pain (Acute). BPH loc w urin obs/LUTS (Chronic). Hypothyroidism (Chronic). Vitamin B12 deficiency (Acute). Anemia (Chronic). Dyspnea on exertion (Acute). Malaise and fatigue (Acute). Primary open angle glaucoma of both eyes, severe stage (Acute). Seasonal allergic rhinitis (Acute). Multiple lung nodules on CT (Chronic). GERD without esophagitis (Acute). Benign prostatic hyperplasia (Chronic). Arteriosclerotic heart disease (Acute). Hyperlipidemia (Acute). Blindness of both eyes (Acute). Ischemic optic neuropathy (Acute). MDS (myelodysplastic syndrome) (Acute). Myocardial infarction (Chronic). Type 2 diabetes mellitus with hyperglycemia (Acute). Surgical History . H/O angioplasty (~1994). [facility]. H/O heart artery stent (~2013). 3 stents per pt. [facility]. History of cataract surgery. [place] [id number] [facility] [place]. History of nasal surgery. S/P tonsillectomy (~1950). Status post glaucoma surgery. multiple [place] [id number] [facility] [place] PREVIOUS FUNCTIONAL STATUS/SOCIAL/FAMILY SUPPORTS:: Tino lives in [place] with his , adult daughter and son-in law and their 4 kids. He is legally blind and disabled. His provides the majority of his transportation, however she is 2 weeks s/[place] [facility] [place] Tino is independent with his ADL's and uses a cane or walking stick when walking outside the home. CURRENT FUNCTIONAL STATUS:: Tino was sitting in his chair when met with him. He was pleasant and easily engaged in conversation. He is anticipating having an endoscopy later today and is hopeful to determine to cause of his epigastric pain. Tino has no questions or concerns at this time. He has a phone at his bedside and has been communicating with his son in law. ADVANCE DIRECTIVES:: None on file, CM gave patient a copy to fill out. Has patient been provided with info about the portal/API?: Yes Did the patient sign up for the portal?: Yes CODE STATUS:: Full Code INSURANCE COVERAGE / FINANCIAL ISSUES:: [employer]. Medicare CURRENT HOME/COMMUNITY SERVICES/EQUIPMENT:: Uses a cane and a walking stick PRN PRIMARY CARE PHYSICIAN:: Dr. Mike Gómez PATIENT/FAMILY EDUCATION NEEDS:: Review discharge instructions, limitations and plan to follow up with community providers. Ask me three. TRANSPORTATION:: Via private vehicle with family. PLAN:: Anticipate Tino will be discharged with no new services when medically cleared by provider. Will transport via private vehicle with family and follow up with community providers.
[2021-10-22] MEDS: Normal Saline Flush 10 ML SYR IVP ×2 (09:50→17:26)
[2021-10-22] MEDS: Pantoprazole 40 MG VIAL IVP (09:50)
--- NOTE | 2021-10-22 09:53 | W.SURGCON ---
Documented by User: BARBIE Ly 10/22/21 10:29 Date of service: 10/22/21 Time of Service: 09:53 Assessment and Plan Assessment and plan (1) Abdominal pain: Status: Resolved Assessment and plan: 76 y/o male with epigastric pain- Most recent Echo at [facility] on 08/2020 was remarkable for LVEF 51%, LVH and Left atrium was severely dilated. Patient was previously seen in the ER at [facility] in April 2021 fro epigastric pain, labs were unremarkable and ACS was r/o. At that time the CT scan (April 2021) was remarkable for abnormal appearance of the gallbladder with pericholecystic fat stranding and small quantity of hyper-dense materials within the gallbladder neck, along with small partially calcified gallstones vs. sludge within the gallbladder fundus. Patient was treated with enema and bowel meds in the ER, and his symptoms improved. Unable to reproduce patient's symptoms on exam. Significant discomfort with palpation over RUQ. Abdominal US was ordered by hospitalist, will await these results. WBC elevated today 14.96, Hgb 9.2 (stable from yesterday) Anemia is chronic and he is followed by Hematology/Oncology at [facility]. Continue with protonix and NPO status. History of Present Illness History of Present Illness Chief Complaint: Abdominal Pain Narrative: 76 y/o male with ahistory of HTN, CAD, chronic heart failure, [place], GERD, dyspnea with exertion, myleodysplastic syndrome, chronic anemia, Type 2 DM and renal insufficiency presented to the ER with complaints of epigastric pain which did not improve with the use of OTC TUMs or Nitroglycerin. In the ER he had GI cocktail without any change in his symptoms. Patient reports that he frequently experiences break through heart burn symptoms despite daily use of omeprazole. He describes a history of EGD when living in [place], which he describes undergoing esophageal dilation. He denies any pain or difficulty swallowing. He describes this discomfort as chest pressure, while touching his epigastric region. Patient reports that his physical activity level is greatly limited by dyspnea and dypsnea with exertion, which he directly relates to his cardiac status. He is followed by cardiology at [facility]. Denies chest pain, palpitations. Denies personal or family history of adverse reactions to anesthesia. Denies any history of stroke or seizures. Review of Systems Constitutional Constitutional: Reports as per [facility] Active Problem List Abdominal pain (Acute) Coronary artery disease involving [place] coronary artery of [place] heart (Acute) Chronic diastolic heart failure (Acute) Essential hypertension (Acute) Chronic renal insufficiency, stage III (moderate) (Acute) Chest pain (Acute) BPH loc w urin obs/LUTS (Chronic) Hypothyroidism (Chronic) Vitamin B12 deficiency (Acute) Anemia (Chronic) Dyspnea on exertion (Acute) Malaise and fatigue (Acute) Primary open angle glaucoma of both eyes, severe stage (Acute) Seasonal allergic rhinitis (Acute) Multiple lung nodules on CT (Chronic) GERD without esophagitis (Acute) Benign prostatic hyperplasia (Chronic) Arteriosclerotic heart disease (Acute) Hyperlipidemia (Acute) Blindness of both eyes (Acute) Ischemic optic neuropathy (Acute) MDS (myelodysplastic syndrome) (Acute) Myocardial infarction (Chronic) Type 2 diabetes mellitus with hyperglycemia (Acute) Surgical History H/O angioplasty (~1994) [facility] H/O heart artery stent (~2013) 3 stents per pt [facility] History of cataract surgery multiple surgeries between [id number] [facility] per pt History of nasal surgery S/P tonsillectomy (~1949) Status post glaucoma surgery multiple surgeries per pt between [id number] [facility] Family History Uncle Asthma Breast cancer Diabetes Heart disease Aunt Breast cancer Diabetes Daughter Diabetes Social History Smoking/Tobacco Use Status: Former Tobacco Use Quit Date: 11/17/82 Pack-years: 40 Tobacco: How many years used: 30 Smoking risk assessment performed?: Yes Alcohol Intake: current Alcohol Intake frequency: 0-2 drinks per day Alcohol type: wine Drug use: Never Substance use type: does not use Household members: spouse and family Housing: house Do you need help understanding health information?: Often current occupation: Retired Sexually active: No Do you think of yourself as: straight/heterosexual Current gender identity: male What is your relationship status?: Panel score (0-1 are the most socially isolated patients): 1 Do you feel safe at home: Yes Do you feel safe in your relationship?: Yes Exam Const General: cooperative, healthy appearing and comfortable Orientation: alert and oriented x3 Resp Effort & Inspection: normal respiratory effort, no audible wheezes and no cough Auscultation: clear to auscultation bilaterally Cardio Rate: regular rate Rhythm: regular rhythm Heart Sounds: S1 normal, S2 normal and no murmurs GI Inspection: normal to inspection and obesity Palpation: soft, guarding in the RUQ and tender in the RUQ Auscultation: normal bowel sounds Results Last Vital Signs Temp 38.4 C H 10/22/21 06:27 Pulse 97 H 10/22/21 06:27 Resp 20 10/22/21 06:27 BP 165/71 H 10/22/21 06:27 Pulse Ox 97 10/22/21 06:27 Labs Result diagrams: 10/23/21 07:00 10/23/21 07:00 Labs: Laboratory Results - last 24 hr 10/21/21 10/21/21 10/21/21 20:35 20:35 22:42 WBC 9.87 RBC 3.04 L Hgb 9.2 L Hct 28.2 L MCV 92.8 MCH 30.3 MCHC 32.6 RDW 13.2 Plt Count 169 MPV 9.8 Immature Gran % 0.5 Neutrophils % 76.6 Lymphocytes % 12.8 Monocytes % 8.5 Eosinophils % 1.3 Basophils % 0.3 Nucleated RBC % 0 Absolute Neutrophils 7.56 H Absolute Lymphocytes 1.26 Absolute Monocytes 0.84 H Absolute Eosinophils 0.13 Absolute Basophils 0.03 VBG Lactate 1.4 Sodium 139 Potassium 4.7 Chloride 105 Carbon Dioxide 24.0 Anion Gap 10.0 BUN 35 H Creatinine 1.7 H Estimated GFR/1.73 m2 39.18 Glucose 175 H Calcium 8.5 Total Bilirubin 0.4 AST 11 L ALT 27 Alkaline Phosphatase 73 Troponin I < 0.05 NT-Pro-B Natriuret Pep 131 Total Protein 6.3 L Albumin 3.2 L Lipase 97 Urine Color Urine Clarity Urine pH Ur Specific Josephine Urine Protein Urine Ketones Urine Blood Urine Nitrite Urine Bilirubin Urine Urobilinogen Ur Leukocyte Esterase Urine RBC Urine WBC Ur Epithelial Cells Urine Crystals Urine Bacteria Urine Casts Urine Mucus Ur Culture Indicated? Urine Glucose COVID-19 Source 10/21/21 10/21/21 10/21/21 22:48 22:55 23:34 WBC RBC Hgb Hct MCV MCH MCHC RDW Plt Count MPV Immature Gran % Neutrophils % Lymphocytes % Monocytes % Eosinophils % Basophils % Nucleated RBC % Absolute Neutrophils Absolute Lymphocytes Absolute Monocytes Absolute Eosinophils Absolute Basophils VBG Lactate Sodium Potassium Chloride Carbon Dioxide Anion Gap BUN Creatinine Estimated GFR/1.73 m2 Glucose Calcium Total Bilirubin AST ALT Alkaline Phosphatase Troponin I < 0.05 NT-Pro-B Natriuret Pep Total Protein Albumin Lipase Urine Color Yellow Urine Clarity Clear Urine pH 5.5 Ur Specific Josephine 1.015 Urine Protein Trace H Urine Ketones Negative Urine Blood Trace-intact H Urine Nitrite Negative Urine Bilirubin Negative Urine Urobilinogen 0.2 Ur Leukocyte Esterase Negative Urine RBC 3-5 H Urine WBC Negative Ur Epithelial Cells Few Urine Crystals Negative Urine Bacteria Rare Urine Casts Negative Urine Mucus Negative Ur Culture Indicated? No Urine Glucose 100 COVID-19 Source Nasal/Nares Documented by User: Trinity Harley, 10/23/21 20:20 Assessment and Plan Assessment and plan (1) Anemia of chronic disease: Status: Acute Assessment and plan: Patient has chronic anemia. He has been seen by [facility] hematology. He did have a bone marrow biopsy. They felt it was due to low erythropoietin and his renal disease. And is not due to myelodysplastic disorder. The did not feel that he requires erythropoietin supplementation at this time. Patient is not on iron supplementation. 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 I did discuss the case with anesthesia. They do not feel that patient is a candidate for surgery at [facility]. If he does require cholecystectomy then he would need to go down to [facility]. Currently at this time I think is the problems stem from his gallstones. He does not require EGD. There is no signs of acute cholecystitis on ultrasound. -we will continue to treat w/ abx. Pt is hungry and would like to eat. We will see how he tolerates diet. If he cannot eat, than he will need to be transferred to [facility] for surgery. there is no ascites evident. LIVER: There are no hepatic lesions evident nor dilatation of intrahepatic ducts. Hepatic steatosis noted. GALLBLADDER/BILIARY: There are small gallstones noted. A few are located in the region of the gallbladder neck. The gallbladder is not overly distended and the gallbladder wall does not appear edematous. There is no pericholecystic fluid. The common hepatic duct isnot dilated, measuring 4-5mm at the level of jm hepatis. PANCREAS: There is no evidence of pancreatic mass nor dilatation of the pancreatic duct. RIGHT KIDNEY:No evidence of solid mass, calculus, nor hydronephrosis. Contains benign cysts, the largest measuring 3.3 x 2.9 cm. ABDOMINAL AORTA AND IVC: Visualized portions exhibit normal caliber. IMPRESSION: 1. Cholelithiasis with small intraluminal gallstones as described above. No obvious acute cholecystitis. No dilatation of the biliary tree, both intra and extrahepatic. Hepatic steatosis noted 2. Benign right kidney cysts. Please note that recent CT scan revealed cysts in both kidneys, the largest cyst being in the left kidney and measuring 6.7 x 4.7 cm. 3. There is no ascites. [facility] Active Problem List Abdominal pain (Acute) Coronary artery disease involving [place] coronary artery of [place] heart (Acute) Chronic diastolic heart failure (Acute) Essential hypertension (Acute) Chronic renal insufficiency, stage III (moderate) (Acute) Chest pain (Acute) BPH loc w urin obs/LUTS (Chronic) Hypothyroidism (Chronic) Vitamin B12 deficiency (Acute) Anemia (Chronic) Dyspnea on exertion (Acute) Malaise and fatigue (Acute) Primary open angle glaucoma of both eyes, severe stage (Acute) Seasonal allergic rhinitis (Acute) Multiple lung nodules on CT (Chronic) GERD without esophagitis (Acute) Benign prostatic hyperplasia (Chronic) Arteriosclerotic heart disease (Acute) Hyperlipidemia (Acute) Blindness of both eyes (Acute) Ischemic optic neuropathy (Acute) MDS (myelodysplastic syndrome) (Acute) Myocardial infarction (Chronic) Type 2 diabetes mellitus with hyperglycemia (Acute) Surgical History H/O angioplasty (~1994) [facility] H/O heart artery stent (~2014) 3 stents per pt [facility] History of cataract surgery multiple surgeries between [id number] [facility] per pt History of nasal surgery S/P tonsillectomy (~1950) Status post glaucoma surgery multiple surgeries per pt between [id number] [facility] Family History Uncle Asthma Breast cancer Diabetes Heart disease Aunt Breast cancer Diabetes Daughter Diabetes Social History Smoking/Tobacco Use Status: Former Tobacco Use Quit Date: 11/17/82 Pack-years: 40 Tobacco: How many years used: 30 Smoking risk assessment performed?: Yes Alcohol Intake: current Alcohol Intake frequency: 0-2 drinks per day Alcohol type: wine Drug use: Never Substance use type: does not use Household members: spouse and family Housing: house Do you need help understanding health information?: Often current occupation: Retired Sexually active: No Do you think of yourself as: straight/heterosexual Current gender identity: male What is your relationship status?: Panel score (0-1 are the most socially isolated patients): 1 Do you feel safe at home: Yes Do you feel safe in your relationship?: Yes Results Labs Result diagrams: 10/23/21 07:00 10/23/21 07:00
[2021-10-22 10:00] LABS: HCT 27.5 % (40.0-50.0); HGB 9.2 g/dL (13.5-17.5); MCH 30.4 pg (27.0-33.0); MCHC 33.5 % (32.0-36.0); MCV 90.8 fL (80-95); MPV 10.4 fL (8.0-11.0); Platelet Count 172 10^3/uL (130-400); RBC 3.03 10^6/uL (4.36-5.78); RDW 13.4 % (11.8-14.1); WBC 14.96 10^3/uL (4.4-10.8)
[2021-10-22 10:12] LABS: Anion Gap 9.2 mmol/L (3-11); BUN 34 mg/dL (7-18); CO2 23.8 mmol/L (21.0-32.0); CREATININE 1.6 mg/dL (0.70-1.30); Calcium 8.7 mg/dL (8.5-10.1); Chloride 106 mmol/L (98-107); Estimated GFR 42.01 (mL/min/1.73m2); Glucose 242 mg/dL (74-106); Potassium 4.3 mmol/L (3.5-5.1); Sodium 139 mmol/L (136-145)
--- NOTE | 2021-10-22 11:38 | PHA.REVIEW ---
Pharmacy Admission Review - Admission Clinical Review (Last Reviewed 10/22/21 @ 00:38 by Billy Roman MD) Abdominal pain (Acute) brimonidine Allergy (Unknown, Verified 10/21/21 20:27) clopidogrel Allergy (Unknown, Verified 10/21/21 20:27) Rash dorzolamide Allergy (Unknown, Verified 10/21/21 20:27) latanoprost Allergy (Unknown, Verified 10/21/21 20:27) Resuscitation Status Full Code Height 6 ft Weight 97.9 kg - Renal Dosing Renal Dosing: BUN 34 mg/dL (7-18) H 10/22/21 06:50 Creatinine 1.6 mg/dL (0.70-1.30) H 10/22/21 06:50 Medications needing adjustments: Reviewed (SCr: 1.6, CrCl~41.00mL/min. All medications dosed appropriately.) - Anticoagulation Anticoagulation: Hgb 9.2 g/dL (13.5-17.5) L 10/22/21 06:50 Hct 27.5 % (40.0-50.0) L 10/22/21 06:50 Plt Count 172 10^3/uL (130-400) 10/22/21 06:50 Creatinine 1.6 mg/dL (0.70-1.30) H 10/22/21 06:50 DVT Prophylaxis: N/A (EGD/Surgical Consult pending) - Opiate Usage Evaluate Pain Scale/Pains Meds: Reviewed (Morphine and Hydromorphone PRN) Scheduled Bowel Reg ordered if on Opiates?: No (No bowel meds ordered. ) - Relevant Labs Sodium 139 mmol/L (136-145) 10/22/21 06:50 Potassium 4.3 mmol/L (3.5-5.1) 10/22/21 06:50 Chloride 106 mmol/L (98-107) 10/22/21 06:50 Electrolytes, C-Reactive P, ESR: Reviewed - DM Control DM Control: Glucose 242 mg/dL (74-106) H 10/22/21 06:50 Finger Stick Blood Glucose 185 Finger Stick Blood Glucose 185 Insulin Dosing: Reviewed (Blood glucose elevated, insulin aspart SS ordered.) - Heart Failure/MN Heart Failure/MN: Troponin I < 0.05 ng/mL (<0.06) 12/05/21 22:48 NT-Pro-B Natriuret Pep 131 pg/mL (<300) 10/21/21 20:35 EF%, JIA's, B-Blockers, Diuretics: Reviewed - BP Control BP Control: Blood Pressure 165/71 Blood Pressure 182/82 Blood Pressure 182/82 Blood Pressure 145/57 Blood Pressure 147/60 Blood Pressure 152/63 Blood Pressure 141/60 Blood Pressure 136/59 Blood Pressure 136/59 Blood Pressure 138/59 Blood Pressure 138/59 If elevated: Reviewed (Blood pressure elevated during this admission. Lisinopril, amlodipine and carvedilol ordered.) - Qtc Review If Elevated: N/A (QTc 455 on admission.) - IV to PO Switch IV Medications: Reviewed - Home Meds Home Med List reviewed: Reviewed Relevent Home Meds Not ordered & why?: Metformin 1000mg BID, Sitagliptan 100mg daily and Glimepiride 2mg daily (held while NPO, ordered insulin aspart SS), Torsemide 20mg daily (dose decreased to 10mg daily inpatient - held due to lactated ringers) and omeprazole 20mg daily (changed to pantoprazole 40mg IVP inpatient). - Current meds Current Medication Order Review: Intervened (Discontinued DI medications.) - Comments Comments/Follow Ups: Watch for pending surgical consult, labs, vital signs and medication changes.
[2021-10-22] MEDS: Insulin Aspart 300 UNITS/3 ML PEN SC ×2 (12:01→17:16)
[2021-10-22 12:07] LABS: COVID-19 PCR Negative (Negative)
[2021-10-22] MEDS: PIPERACILLIN/TAZO 3.375 GM in Normal Saline 50 ML IVPB ×2 (17:16→21:32)
[2021-10-22 18:59] LABS: C-Reactive Protein 2.84 mg/dL (0.0-0.3)
[2021-10-22 19:01] LABS: Iron 13 ug/dL (65-175); Total Iron Binding Capacity 251 ug/dL (250-450); Transferrin Sat 5 % (20-55)
[2021-10-22] MEDS: Atorvastatin 40 MG TAB 80 MG PO (21:32)
[2021-10-22 23:28] LABS: Abs Immature Grans 0.06 10^3/uL (0.0-0.06); Absolute Basophil Count 0.02 10^3/uL (0.0-0.2); Absolute Eosinophil Count 0.01 10^3/uL (0.0-0.7); Absolute Lymphocyte Count 1.06 10^3/uL (1.2-3.4); Absolute Monocyte Count 0.79 10^3/uL (0.1-0.8); Absolute Neutrophil Count 9.67 10^3/uL (1.2-6.7); Basophils % 0.2; Eosinophils % 0.1; HCT 26.3 % (40.0-50.0); HGB 8.5 g/dL (13.5-17.5); Immature Grans % 0.5; Lymphocytes % 9.1; MCH 29.7 pg (27.0-33.0); MCHC 32.3 % (32.0-36.0); MPV 9.6 fL (8.0-11.0); Monocytes % 6.8; Neutrophils % 83.3; Nucleated RBC 0 %; Platelet Count 140 10^3/uL (130-400); RBC 2.86 10^6/uL (4.36-5.78); RDW 13.6 % (11.8-14.1); RDW-SD 45.6 fL; WBC 11.61 10^3/uL (4.4-10.8)
--- NOTE | 2021-10-23 | DI.RAD_ITS ---
Exam(s) XR CHEST 2V PA LATERAL EXAM: XR CHEST 2V PA LATERAL CLINICAL HISTORY: productive cough TECHNIQUE: 2D digital imaging was performed of the chest. Two images were obtained. PA and lateral views were obtained. COMPARISON: CR XR CHEST 2V PA LATERAL from 05/10/2021 FINDINGS: MEDIASTINUM: Normal. HEART: Normal. PULMONARY VASCULATURE: Normal. LUNGS: Clear. PLEURAL SPACE: No pleural effusion or pneumothorax. BONE:Within normal limits for the patient's age. OTHER FINDINGS:Normal. IMPRESSION: No acute pulmonary findings. DATA REPOSITORY: RADIATION DOSE DELIVERED:
[2021-10-23] MEDS: Insulin Aspart 300 UNITS/3 ML PEN SC ×5 (00:07→22:10)
[2021-10-23 00:11] VITALS: BP 159/71; PULSE 85; RESP 16; TEMP 37.7; O2SAT 96
[2021-10-23] MEDS: Lactated Ringers 1,000 ML 100 ML IV (05:40)
[2021-10-23] MEDS: Levothyroxine 50 MCG TAB PO (06:22)
[2021-10-23] MEDS: PIPERACILLIN/TAZO 3.375 GM in Normal Saline 50 ML IVPB ×3 (06:22→22:11)
[2021-10-23 07:18] LABS: Abs Immature Grans 0.09 10^3/uL (0.0-0.06); Absolute Basophil Count 0.02 10^3/uL (0.0-0.2); Absolute Eosinophil Count 0.02 10^3/uL (0.0-0.7); Absolute Monocyte Count 0.85 10^3/uL (0.1-0.8); Basophils % 0.2; Eosinophils % 0.2; HCT 25.8 % (40.0-50.0); HGB 8.4 g/dL (13.5-17.5); Immature Grans % 0.8; MCH 29.4 pg (27.0-33.0); MCHC 32.6 % (32.0-36.0); MCV 90.2 fL (80-95); MPV 9.4 fL (8.0-11.0); Monocytes % 7.1; Neutrophils % 81.7; Nucleated RBC 0 %; Platelet Count 142 10^3/uL (130-400); RBC 2.86 10^6/uL (4.36-5.78); RDW 13.5 % (11.8-14.1); RDW-SD 44.3 fL; WBC 11.99 10^3/uL (4.4-10.8)
--- NOTE | 2021-10-23 07:31 | W.PM.PROGNOT ---
Documented by User: BARBIE Ly 10/23/21 07:43 Date of Service Date of service: 10/23/21 Time of Service: 07:31 Assessment and Plan Assessment and plan (1) Abdominal pain: Status: Resolved Assessment and plan: Continue Protonix Tolerating clear liquid diet Abdominal pain is improving Continue antibiotics Encouraged activity OOB and sitting in the chair throughout the day. Continue Pulmonary Toilet. Subjective Subjective Interval history since last seen: Patient reports that he feels slightly better today. He tolerated clear liquid diet. No nausea, vomiting or increase in pain. Exam Const General: cooperative, healthy appearing and comfortable Orientation: alert and oriented x3 Resp Effort & Inspection: normal respiratory effort, no audible wheezes and no cough GI Inspection: normal to inspection Palpation: soft, guarding in the RUQ and tender in the RUQ Objective Last Vital Signs Temp 37.7 C H 10/23/21 00:11 Pulse 85 10/23/21 00:11 Resp 16 10/23/21 00:11 BP 159/71 H 10/23/21 00:11 Pulse Ox 96 10/23/21 00:11 Laboratory Results - last 24 hr 10/21/21 10/22/21 10/22/21 22:55 06:50 06:50 WBC 14.96 H D RBC 3.03 L Hgb 9.2 L Hct 27.5 L MCV 90.8 MCH 30.4 MCHC 33.5 RDW 13.4 Plt Count 172 MPV 10.4 Immature Gran % Neutrophils % Lymphocytes % Monocytes % Eosinophils % Basophils % Nucleated RBC % Absolute Neutrophils Absolute Lymphocytes Absolute Monocytes Absolute Eosinophils Absolute Basophils Sodium 139 Potassium 4.3 Chloride 106 Carbon Dioxide 23.8 Anion Gap 9.2 BUN 34 H Creatinine 1.6 H Estimated GFR/1.73 m2 42.01 Glucose 242 H Calcium 8.7 Iron TIBC Transferrin % Sat C-Reactive Protein SARS-CoV-2 (PCR) Negative 10/22/21 10/22/21 10/22/21 06:50 06:50 23:15 WBC 11.61 H RBC 2.86 L Hgb 8.5 L Hct 26.3 L MCV 92.0 MCH 29.7 MCHC 32.3 RDW 13.6 Plt Count 140 MPV 9.6 Immature Gran % 0.5 Neutrophils % 83.3 Lymphocytes % 9.1 Monocytes % 6.8 Eosinophils % 0.1 Basophils % 0.2 Nucleated RBC % 0 Absolute Neutrophils 9.67 H Absolute Lymphocytes 1.06 L Absolute Monocytes 0.79 Absolute Eosinophils 0.01 Absolute Basophils 0.02 Sodium Potassium Chloride Carbon Dioxide Anion Gap BUN Creatinine Estimated GFR/1.73 m2 Glucose Calcium Iron 13 L TIBC 251 Transferrin % Sat 5 L C-Reactive Protein 2.84 H SARS-CoV-2 (PCR) 10/23/21 07:00 WBC 11.99 H RBC 2.86 L Hgb 8.4 L Hct 25.8 L MCV 90.2 MCH 29.4 MCHC 32.6 RDW 13.5 Plt Count 142 MPV 9.4 Immature Gran % 0.8 Neutrophils % 81.7 Lymphocytes % 10.0 Monocytes % 7.1 Eosinophils % 0.2 Basophils % 0.2 Nucleated RBC % 0 Absolute Neutrophils 9.80 H Absolute Lymphocytes 1.20 Absolute Monocytes 0.85 H Absolute Eosinophils 0.02 Absolute Basophils 0.02 Sodium Potassium Chloride Carbon Dioxide Anion Gap BUN Creatinine Estimated GFR/1.73 m2 Glucose Calcium Iron TIBC Transferrin % Sat C-Reactive Protein SARS-CoV-2 (PCR) PAWSS Have you Been Recently Intoxicated or Drunk Within the Last 30 days?: No Have you Ever Experienced Previous Episodes of Alcohol Withdrawal?: No Have you ever Experienced Withdrawal Seizures?: No Have you ever Experienced Delirium Tremens(DT)s?: No Have you ever undergone Alcohol Rehabilitation Treatment (i.e, inpt ot outpatient treatment programs)?: No Have you ever Experienced Blackouts?: No Have you ever Combined Alcohol with other Downers within the last 90 days?: No Have you ever Combined Alcohol with any other Substance of Abuse during the last 90 days?: No Result: 0 Documented by User: Trinity Harley DO 10/23/21 20:28 Assessment and Plan Assessment and plan (1) Gallstones without obstruction of gallbladder: Status: Acute Assessment and plan: pt seen and examined. Agree w/ above pt has developed a cough. He is already on zosyn will check cxr he is tolerating clears well. advance to low fat diet
[2021-10-23 07:34] LABS: ALT 29 U/L (16-63); AST 15 U/L (15-37); Albumin 2.5 g/dL (3.4-5.0); Alkaline Phosphatase 76 U/L (46-116); Anion Gap 8.3 mmol/L (3-11); BUN 27 mg/dL (7-18); Bilirubin, Total 0.9 mg/dL (0.2-1.0); CO2 25.7 mmol/L (21.0-32.0); CREATININE 1.4 mg/dL (0.70-1.30); Calcium 8.4 mg/dL (8.5-10.1); Chloride 103 mmol/L (98-107); Estimated GFR 49.01 (mL/min/1.73m2); Glucose 188 mg/dL (74-106); Magnesium 1.4 mg/dL (1.8-2.4); Potassium 3.8 mmol/L (3.5-5.1); Sodium 137 mmol/L (136-145); Total Protein 5.6 g/dL (6.4-8.2)
[2021-10-23] MEDS: Lisinopril 20 MG TAB 40 MG PO (07:53)
[2021-10-23] MEDS: Tamsulosin 0.4 MG CAPCR PO (07:53)
[2021-10-23] MEDS: Multivitamin TAB 1 TAB PO (07:53)
[2021-10-23] MEDS: Carvedilol 25 MG TAB PO ×2 (07:53→20:16)
[2021-10-23] MEDS: amLODIPine 5 MG TAB PO ×2 (07:53→20:16)
[2021-10-23 08:35] VITALS: BP 152/67; PULSE 83; RESP 18; TEMP 36.9; O2SAT 95
[2021-10-23] MEDS: Normal Saline Flush 10 ML SYR IVP (08:51)
[2021-10-23] MEDS: Pantoprazole 40 MG VIAL IVP (08:51)
--- NOTE | 2021-10-23 09:09 | W.DIABETESNO ---
Date of service: 10/23/21 Time of Service: 09:10 Diabetes Note NOTE: Assessment: Mr. Robb is tolerating clears now. He has type 2 DM and was getting Aspart q6 while he was NPO. Blood sugars have been above target. BMI is 28.9 kg/m2 which is WNL for his age. Of note, Mr. Robb has lost 5% of his body weight in the past 6 months which is not significant-just noting it. Nutrition Diagnosis: None at this time Intervention: Would consider starting a basal insulin to help get his blood sugars within the target range. Would also consider changing aspart correction doses to AC and HS now that he is eating. Monitoring and Evaluation: Will continue to monitor PO, weight, and blood sugars. Will evaluate nutritional care plan ongoing and adjust as needed. Time Spent in Nutritional Counseling and Treatment: 0
[2021-10-23 09:39] VITALS: O2SAT 97
--- NOTE | 2021-10-23 09:39 | CMPROGNOTE_ITS ---
- If Service Date Differs Date of service: 10/23/21 Time of Service: 09:39 Care Management Progress Note S/O: Tino was sitting up in his chair when CM met with him. He was pleasant and easily engaged in conversation. Denies any new complaints. He feels better, tolerating liquids well and is afebrile. He reported feeling a bit bloated, denies nausea/vomiting. His last BM was 10/21/21. Patient remains on IV ABX. A: 76 year old male admitted to [facility] on 10/22/21 for epigastric pain P: Anticipate Tino will be discharged home with no new services when medically cleared by provider. Will transport via private vehicle with family and follow up with community providers.
[2021-10-23 09:48] VITALS: O2SAT 95
[2021-10-23] MEDS: MAGNESIUM SULFATE 4 GM/100 ML BAG IVPB (09:49)
[2021-10-23] MEDS: Cyanocobalamin 500 MCG TAB 5000 MCG PO (09:56)
--- NOTE | 2021-10-23 10:48 | PGE_ITS ---
Date of Service Date of service: 10/23/21 Time of Service: 10:48 Assessment and Plan Assessment and plan (1) Abdominal pain: Status: Resolved Assessment and plan: resolved (2) Gallstones without obstruction of gallbladder: Status: Acute Assessment and plan: surgery following. day 2 zosyn per surgery. (3) Coronary artery disease involving [place] coronary artery of [place] heart: Status: Acute Assessment and plan: stable, continue statin beta jena (4) Chronic renal insufficiency, stage III (moderate): Status: Acute Assessment and plan: 1.4 today, at baseline of 1.4-1.7 (5) Hypothyroidism: Status: Chronic Assessment and plan: TSH was 3.8 in jun 2020, will repeat. (6) Type 2 diabetes mellitus with hyperglycemia: Status: Acute Assessment and plan: A1C 6.4-6.8 since 11/05 change sliding scale coverage to ac/hs now taking po Qualifiers: Diabetes mellitus long term care administrator insulin use: without long term care administrator use Qualifie d Code(s): E11.65 - Type 2 diabetes mellitus with hyperglycemia (7) BPH loc w urin obs/LUTS: Status: Chronic Assessment and plan: no sign of retention, continue tamsulosin Subjective Subjective Patient reports: no new complaints, feels better, tolerating liquids well and afebrile; denies nausea Exam Const General: cooperative, healthy appearing, comfortable, no acute distress, well developed and well groomed Nutritional Appearance: overweight Orientation: alert, awake and oriented x3 HENMT Head: normal to inspection, normocephalic and atraumatic Mouth: moist mucous membranes abnormal (slightly dry) Resp Effort & Inspection: normal respiratory effort Auscultation: clear to auscultation bilaterally and diminished lung sounds (bases) bilaterally Cardio Rate: regular rate Rhythm: regular rhythm GI Inspection: distended (round, soft, tender upper right and epigastrim ) Auscultation: normal bowel sounds Skin General skin exam: no rashes or lesions noted Neuro General: patient alert, patient awake and patient oriented x3 Extrem General: normal to inspection, full ROM and no pedal edema Objective Last Vital Signs Temp 36.9 C 10/23/21 08:35 Pulse 83 10/23/21 08:35 Resp 18 10/23/21 08:35 BP 152/67 H 10/23/21 08:35 Pulse Ox 95 10/23/21 09:48 Laboratory Results - last 24 hr 10/21/21 10/22/21 10/22/21 22:55 06:50 06:50 WBC RBC Hgb Hct MCV MCH MCHC RDW Plt Count MPV Immature Gran % Neutrophils % Lymphocytes % Monocytes % Eosinophils % Basophils % Nucleated RBC % Absolute Neutrophils Absolute Lymphocytes Absolute Monocytes Absolute Eosinophils Absolute Basophils Sodium Potassium Chloride Carbon Dioxide Anion Gap BUN Creatinine Estimated GFR/1.73 m2 Glucose Calcium Magnesium Iron 13 L TIBC 251 Transferrin % Sat 5 L Total Bilirubin AST ALT Alkaline Phosphatase C-Reactive Protein 2.84 H Total Protein Albumin SARS-CoV-2 (PCR) Negative 10/22/21 10/23/21 10/23/21 23:15 07:00 07:00 WBC 11.61 H 11.99 H RBC 2.86 L 2.86 L Hgb 8.5 L 8.4 L Hct 26.3 L 25.8 L MCV 92.0 90.2 MCH 29.7 29.4 MCHC 32.3 32.6 RDW 13.6 13.5 Plt Count 140 142 MPV 9.6 9.4 Immature Gran % 0.5 0.8 Neutrophils % 83.3 81.7 Lymphocytes % 9.1 10.0 Monocytes % 6.8 7.1 Eosinophils % 0.1 0.2 Basophils % 0.2 0.2 Nucleated RBC % 0 0 Absolute Neutrophils 9.67 H 9.80 H Absolute Lymphocytes 1.06 L 1.20 Absolute Monocytes 0.79 0.85 H Absolute Eosinophils 0.01 0.02 Absolute Basophils 0.02 0.02 Sodium 137 Potassium 3.8 Chloride 103 Carbon Dioxide 25.7 Anion Gap 8.3 BUN 27 H Creatinine 1.4 H Estimated GFR/1.73 m2 49.01 Glucose 188 H Calcium 8.4 L Magnesium 1.4 L Iron TIBC Transferrin % Sat Total Bilirubin 0.9 AST 15 ALT 29 Alkaline Phosphatase 76 C-Reactive Protein Total Protein 5.6 L Albumin 2.5 L SARS-CoV-2 (PCR) PAWSS Have you Been Recently Intoxicated or Drunk Within the Last 30 days?: No Have you Ever Experienced Previous Episodes of Alcohol Withdrawal?: No Have you ever Experienced Withdrawal Seizures?: No Have you ever Experienced Delirium Tremens(DT)s?: No Have you ever undergone Alcohol Rehabilitation Treatment (i.e, inpt ot outpatient treatment programs)?: No Have you ever Experienced Blackouts?: No Have you ever Combined Alcohol with other Downers within the last 90 days?: No Have you ever Combined Alcohol with any other Substance of Abuse during the last 90 days?: No Result: 0
[2021-10-23 12:26] LABS: TSH (W/Ref FT4) 1.09 uIU/mL (0.36-3.74)
[2021-10-23 16:49] VITALS: BP 137/64; PULSE 78; RESP 18; TEMP 37.6; O2SAT 94
--- NOTE | 2021-10-23 17:10 | DI.VRAD_ITS ---
PROCEDURE INFORMATION: Exam: XR Chest Exam date and time: 10/23/2021 4:03 PM Age: 76 years old Clinical indication: Other: Productive cough TECHNIQUE: Imaging protocol: XR of the chest. Views: 2 views. COMPARISON: CT THORAX ABD/PEL CTA 10/21/2021 9:24 PM FINDINGS: Lungs: No consolidation. Pleural spaces: No sizable pleural effusion. No pneumothorax. Heart/Mediastinum: Cardiomediastinal silhouette is within normal limits. Bones/joints: Bony degenerative changes. IMPRESSION: No acute cardiopulmonary findings. Dictated and Authenticated by: Jermaine Downey MD. Ordering:DUANE Petersen MD
[2021-10-23] MEDS: Atorvastatin 40 MG TAB 80 MG PO (22:11)
[2021-10-23 23:14] VITALS: BP 137/64; PULSE 78; RESP 20; TEMP 36.8; O2SAT 94
[2021-10-24] MEDS: PIPERACILLIN/TAZO 3.375 GM in Normal Saline 50 ML IVPB ×3 (05:58→22:34)
[2021-10-24] MEDS: Levothyroxine 50 MCG TAB PO (05:58)
[2021-10-24 07:02] LABS: Abs Immature Grans 0.05 10^3/uL (0.0-0.06); Absolute Basophil Count 0.01 10^3/uL (0.0-0.2); Absolute Eosinophil Count 0.14 10^3/uL (0.0-0.7); Absolute Lymphocyte Count 0.95 10^3/uL (1.2-3.4); Absolute Monocyte Count 0.65 10^3/uL (0.1-0.8); Basophils % 0.1; Eosinophils % 1.6; HCT 25.3 % (40.0-50.0); HGB 8.2 g/dL (13.5-17.5); Immature Grans % 0.6; Lymphocytes % 10.7; MCH 29.4 pg (27.0-33.0); MCHC 32.4 % (32.0-36.0); MCV 90.7 fL (80-95); MPV 9.9 fL (8.0-11.0); Monocytes % 7.3; Neutrophils % 79.7; Nucleated RBC 0 %; Platelet Count 130 10^3/uL (130-400); RBC 2.79 10^6/uL (4.36-5.78); RDW-SD 42.9 fL
[2021-10-24 07:11] LABS: Anion Gap 9.2 mmol/L (3-11); BUN 27 mg/dL (7-18); CO2 23.8 mmol/L (21.0-32.0); CREATININE 1.5 mg/dL (0.70-1.30); Calcium 8.4 mg/dL (8.5-10.1); Chloride 101 mmol/L (98-107); Estimated GFR 45.26 (mL/min/1.73m2); Glucose 193 mg/dL (74-106); Potassium 3.7 mmol/L (3.5-5.1); Sodium 134 mmol/L (136-145)
[2021-10-24] MEDS: Carvedilol 25 MG TAB PO ×2 (07:49→20:25)
[2021-10-24] MEDS: Tamsulosin 0.4 MG CAPCR PO (07:49)
[2021-10-24] MEDS: Cyanocobalamin 500 MCG TAB 5000 MCG PO (07:50)
[2021-10-24] MEDS: amLODIPine 5 MG TAB PO ×2 (07:50→20:25)
[2021-10-24] MEDS: Lisinopril 20 MG TAB 40 MG PO (07:50)
[2021-10-24] MEDS: Multivitamin TAB 1 TAB PO (07:50)
[2021-10-24 07:54] VITALS: BP 148/62; PULSE 72; RESP 18; TEMP 36.8; O2SAT 95
[2021-10-24] MEDS: Insulin Aspart 300 UNITS/3 ML PEN SC ×4 (07:54→22:35)
--- NOTE | 2021-10-24 08:59 | W.PM.PROGNOT ---
Date of Service Date of service: 10/24/21 Time of Service: 09:00 Assessment and Plan Assessment and plan (1) Abdominal pain: Status: Resolved Assessment and plan: Continue Protonix Progress to low fat diet Abdominal pain has resolved Encouraged activity OOB and sitting in the chair throughout the day. Continue Pulmonary Toilet Patient should continue low fat diet upon d/c. Will sign off given patient's improvement. Subjective Subjective Interval history since last seen: Patient reports he feels like he is improving. He states that is abdominal pain is starting to improve. Tolerating clear liquid diet. denies any fevers or chills. Exam Const General: cooperative, healthy appearing and comfortable Orientation: alert and oriented x3 Resp Effort & Inspection: normal respiratory effort, no audible wheezes and no cough GI Palpation: soft, no guarding and tender (Mild ) in the RUQ Objective Last Vital Signs Temp 36.8 C 10/24/21 07:54 Pulse 72 10/24/21 07:54 Resp 18 10/24/21 07:54 BP 148/62 H 10/24/21 07:54 Pulse Ox 95 10/24/21 07:54 Laboratory Results - last 24 hr 10/23/21 10/24/21 10/24/21 07:00 06:30 06:30 WBC 8.90 RBC 2.79 L Hgb 8.2 L Hct 25.3 L MCV 90.7 MCH 29.4 MCHC 32.4 RDW 13.0 Plt Count 130 MPV 9.9 Immature Gran % 0.6 Neutrophils % 79.7 Lymphocytes % 10.7 Monocytes % 7.3 Eosinophils % 1.6 Basophils % 0.1 Nucleated RBC % 0 Absolute Neutrophils 7.10 H Absolute Lymphocytes 0.95 L Absolute Monocytes 0.65 Absolute Eosinophils 0.14 Absolute Basophils 0.01 Sodium 134 L Potassium 3.7 Chloride 101 Carbon Dioxide 23.8 Anion Gap 9.2 BUN 27 H Creatinine 1.5 H Estimated GFR/1.73 m2 45.26 Glucose 193 H Calcium 8.4 L TSH 1.09 PAWSS Have you Been Recently Intoxicated or Drunk Within the Last 30 days?: No Have you Ever Experienced Previous Episodes of Alcohol Withdrawal?: No Have you ever Experienced Withdrawal Seizures?: No Have you ever Experienced Delirium Tremens(DT)s?: No Have you ever undergone Alcohol Rehabilitation Treatment (i.e, inpt ot outpatient treatment programs)?: No Have you ever Experienced Blackouts?: No Have you ever Combined Alcohol with other Downers within the last 90 days?: No Have you ever Combined Alcohol with any other Substance of Abuse during the last 90 days?: No Result: 0
[2021-10-24] MEDS: Pantoprazole 40 MG VIAL IVP (09:06)
[2021-10-24] MEDS: Normal Saline Flush 10 ML SYR IVP (09:06)
[2021-10-24 09:10] LABS: C-Reactive Protein 24.14 mg/dL (0.0-0.3)
[2021-10-24] MEDS: Ferrous Sulfate 325 MG TAB PO ×2 (09:20→20:25)
--- NOTE | 2021-10-24 10:06 | CMPROGNOTE_ITS ---
- If Service Date Differs Date of service: 10/24/21 Time of Service: 10:06 Care Management Progress Note S/O: Tino was sitting up in his chair when CM met with him. He was pleasant and easily engaged in conversation. PT consult was done today, he is independent at baseline other than requiring supervision with ambulation outside his room r/t his blindness. Tino is hopeful he can discharge home tomorrow. He shared with CM that he has lots of people at home that love him and are willing to help him. CM will continue to support discharge planning needs. A: 76 year old male admitted to [facility] on 10/22/21 for epigastric pain P: Anticipate Tino will be discharged home with no new services when medically cleared by provider. He will transport via private vehicle with family and follow up with community providers.
--- NOTE | 2021-10-24 10:24 | PT.INIE ---
Date of service: 10/24/21 Time of Service: 10:24 PT Notes Visit Reasons: Epigastric Pain Physical Therapy Inpatient Initial Evaluation Date: 10/24/2021 Referring Doctor: Dotty Mcmahan NP PT Orders: PT CONSULT: Eval/treat Precautions: Fall. Standard. Activity as tolerated. Legally blind. Patient Profile/Admitting Diagnosis: Tino is a 76-year-old male who presented to the ED on 10/21/2021 due to chest pain. Patient is diagnosed with abdominal pain that has resolved as of 10/24/2021, gallstones without obstruction of gallbladder, coronary artery disease, stage III chronic renal failure, type 2 diabetes mellitus with hyperglycemia, and benign prostatic hyperplasia. PMHX: Active Problem List Abdominal pain (Acute) Coronary artery disease involving [place] coronary artery of [place] heart (Acute) Chronic diastolic heart failure (Acute) Essential hypertension (Acute) Chronic renal insufficiency, stage III (moderate) (Acute) Chest pain (Acute) BPH loc w urin obs/LUTS (Chronic) Hypothyroidism (Chronic) Vitamin B12 deficiency (Acute) Anemia (Chronic) Dyspnea on exertion (Acute) Malaise and fatigue (Acute) Primary open angle glaucoma of both eyes, severe stage (Acute) Seasonal allergic rhinitis (Acute) Multiple lung nodules on CT (Chronic) GERD without esophagitis (Acute) Benign prostatic hyperplasia (Chronic) Arteriosclerotic heart disease (Acute) Hyperlipidemia (Acute) Blindness of both eyes (Acute) Ischemic optic neuropathy (Acute) MDS (myelodysplastic syndrome) (Acute) Myocardial infarction (Chronic) Type 2 diabetes mellitus with hyperglycemia (Acute) Surgical History H/O angioplasty (~1994) [facility] H/O heart artery stent (~2013) 3 stents per pt [facility] History of cataract surgery multiple surgeries between [id number] [facility] [place] History of nasal surgery S/P tonsillectomy (~1950) Status post glaucoma surgery multiple surgeries per pt between [id number] [facility] [place] Social History/Home Situation: Lives with as well as daughter and daughter's family in a private home with 3-4 steps to enter with 1 rail. Has had no falls in the past year. Independent with all ADLs without an assistive device. Equipment Owned/DME: None Subjective: Patient indicates that there has been no decline in strength or his mobility level except for he needed to be careful walking in the hallway as he is legally blind. States that he has family able to take care of him as needed. Agreeable to PT consult. Objective: General Observation: Seated on chair. In NAD. Mental Status: Alert and oriented as to person, place, time, and purpose. Able to pay attention, focus, and respond appropriately. Pain: Denies Vital Signs: Within normal limits as closely monitored by nursing staff. ROM: Right Upper Extremity: Shoulder Flexion WFL. Shoulder abduction WFL. Elbow flexion WFL. Wrist flexion WFL. Functional opening and closing of hand WFL. Left Upper Extremity: Shoulder Flexion WFL. Shoulder abduction WFL. Elbow flexion WFL. Wrist flexion WFL. Functional opening and closing of hand WFL. Right Lower Extremity: Hip flexion WFL. Hip abduction WFL. Knee flexion WFL. Ankle dorsiflexion WFL. Ankle plantarflexion WFL. Left Lower Extremity: Hip flexion WFL. Hip abduction WFL. Knee flexion WFL. Ankle dorsiflexion WFL. Ankle plantarflexion WFL. Strength: Right Upper Extremity: Shoulder flexors 5/5. Shoulder abductors 5/5. Elbow flexors 5/5. Elbow extensors 5/5. Director Of Category Management strong. Left Upper Extremity: Shoulder flexors 5/5. Shoulder abductors 5/5. Elbow flexors 5/5. Elbow extensors 5/5. Director Of Category Management strong. Right Lower Extremity: Hip flexors 5/5. Hip abductors 5/5. Knee flexors 5/5. Knee extensors 5/5. Ankle dorsiflexors 5/5. Ankle plantarflexors 5/5. Left Lower Extremity: Hip flexors 5/5. Hip abductors 5/5. Knee flexors 5/5. Knee extensors 5/5. Ankle dorsiflexors 5/5. Ankle plantarflexors 5/5. Bed Mobility/Transfers: Rolling independent Supine to sit independent Sit to supine independent Sit to stand independent Stand to sit independent Bed to reclining chair independent Reclining chair to bed independent Gait: Instructed patient with level surface ambulation of 250 feet requiring supervision assist for directions only. Gait unremarkable. Mild SOB that resolved with rest. Balance: Static Sitting: Normal Dynamic Sitting: Normal Static Standing: Normal Dynamic Standing: Good Special Tests: Mobility Limitations Standardized Measure [facility] AM-PAC 6 clicks Basic Mobility Inpatient Short Form: Raw Score: 24 CMS Score: 0% deficit Informed Consent/Education: Patient was instructed in purpose of PT consult. Assessment: Strength in B UE and LE preserved by testing and with subjective report from patient. Patient is also able to pace self effectively to minimize shortness of breath. May be independent inside room without an assistive device but may require supervision from nursing staff without an assistive device in the hallway due to patient's legal blindness for safety. No skilled services needed at this time Patient is assessed as a 56200 low complexity based on the following: History: 76-year-old male with past medical history as indicated above Examination: Demonstrable impairment in strength, balance, and mobility level with underlying impairments and functional limitations as exhibited above as well as deficit score of 0% utilizing the [facility] Mobility Inpatient Short Form Presentation: Stable Decision Makin low complexity Goals: N/A. PT evaluation and 1 treatment session only for functional mobility training. Plan of Care/Treatment Plan: N/A. PT evaluation and 1 treatment session only for functional mobility training. DISCHARGE RECOMMENDATIONS: [X] Home with no services. Home when medically cleared by hospitalist. No equipment needs at this time. [] Home with services [specify] [] Home with outpatient PT [] [] SNF for continued rehabilitation [] [] [facility] Ticket Machine Operator [facility] [] [] SNF versus LTC based on ability to participate and progress [] TREATMENT CODE/TIME: 22804 x 29 minutes beginning at 10:24 AM. Thank you for the opportunity to participate in the care of this patient. Yvonne Montana PT, DPT, CLT [facility] [place], [place]
[2021-10-24 11:57] VITALS: BP 125/67; PULSE 66; RESP 18; TEMP 36.4; O2SAT 96
--- NOTE | 2021-10-24 12:28 | W.PM.PROGNOT ---
Date of Service Date of service: 10/24/21 Time of Service: 12:28 Assessment and Plan Assessment and plan (1) Abdominal pain: Status: Resolved Assessment and plan: resolved (2) Gallstones without obstruction of gallbladder: Status: Acute Assessment and plan: surgery following. day 3 zosyn per surgery. white count normalized CRP up to 24 from 2.8 discussed with surgery, will repeat in am and if still rising or starts having pain will repeat ultrasound (3) Coronary artery disease involving [place] coronary artery of [place] heart: Status: Acute Assessment and plan: stable, continue statin beta jena (4) Chronic renal insufficiency, stage III (moderate): Status: Acute Assessment and plan: 1.5 today, at baseline of 1.4-1.7 (5) Hypothyroidism: Status: Chronic Assessment and plan: TSH was 3.8 in jun 2020, will repeat. (6) Type 2 diabetes mellitus with hyperglycemia: Status: Acute Assessment and plan: A1C 6.4-6.8 since 11/05 change sliding scale coverage to ac/hs now taking po Qualifiers: Diabetes mellitus mcfp insulin use: without regional intermodal truck driver use Qualified Code(s): E11.65 - Type 2 diabetes mellitus with hyperglycemia (7) BPH loc w urin obs/LUTS: Status: Chronic Assessment and plan: no sign of retention, continue tamsulosin (8) Discharge planning issues: Status: Acute Assessment and plan: PT evaluation, no needs at discharge will discharge home, tomorrow if labs improving discussed with Dr Del Toro Subjective Subjective Patient reports: no new complaints, tolerating liquids well and afebrile; denies nausea Exam Const General: cooperative, healthy appearing, comfortable, no acute distress, well developed and well groomed Nutritional Appearance: overweight Orientation: alert, awake and oriented x3 HENMT Head: normal to inspection, normocephalic and atraumatic Mouth: moist mucous membranes abnormal (slightly dry) Resp Effort & Inspection: normal respiratory effort Auscultation: clear to auscultation bilaterally and diminished lung sounds (bases) bilaterally Cardio Rate: regular rate Rhythm: regular rhythm GI Inspection: distended (round, soft, tender upper right and epigastrim ) Auscultation: normal bowel sounds Skin General skin exam: no rashes or lesions noted Neuro General: patient alert, patient awake and patient oriented x3 Extrem General: normal to inspection, full ROM and no pedal edema Objective Last Vital Signs Temp 36.4 C L 10/24/21 11:57 Pulse 66 10/24/21 11:57 Resp 18 10/24/21 11:57 BP 125/67 10/24/21 11:57 Pulse Ox 96 10/24/21 11:57 Laboratory Results - last 24 hr 10/23/21 10/24/21 10/24/21 07:00 06:30 06:30 WBC 8.90 RBC 2.79 L Hgb 8.2 L Hct 25.3 L MCV 90.7 MCH 29.4 MCHC 32.4 RDW 13.0 Plt Count 130 MPV 9.9 Immature Gran % 0.6 Neutrophils % 79.7 Lymphocytes % 10.7 Monocytes % 7.3 Eosinophils % 1.6 Basophils % 0.1 Nucleated RBC % 0 Absolute Neutrophils 7.10 H Absolute Lymphocytes 0.95 L Absolute Monocytes 0.65 Absolute Eosinophils 0.14 Absolute Basophils 0.01 Sodium 134 L Potassium 3.7 Chloride 101 Carbon Dioxide 23.8 Anion Gap 9.2 BUN 27 H Creatinine 1.5 H Estimated GFR/1.73 m2 45.26 Glucose 193 H Calcium 8.4 L C-Reactive Protein TSH 1.09 10/24/21 06:30 WBC RBC Hgb Hct MCV MCH MCHC RDW Plt Count MPV Immature Gran % Neutrophils % Lymphocytes % Monocytes % Eosinophils % Basophils % Nucleated RBC % Absolute Neutrophils Absolute Lymphocytes Absolute Monocytes Absolute Eosinophils Absolute Basophils Sodium Potassium Chloride Carbon Dioxide Anion Gap BUN Creatinine Estimated GFR/1.73 m2 Glucose Calcium C-Reactive Protein 24.14 H TSH PAWSS Have you Been Recently Intoxicated or Drunk Within the Last 30 days?: No Have you Ever Experienced Previous Episodes of Alcohol Withdrawal?: No Have you ever Experienced Withdrawal Seizures?: No Have you ever Experienced Delirium Tremens(DT)s?: No Have you ever undergone Alcohol Rehabilitation Treatment (i.e, inpt ot outpatient treatment programs)?: No Have you ever Experienced Blackouts?: No Have you ever Combined Alcohol with other Downers within the last 90 days?: No Have you ever Combined Alcohol with any other Substance of Abuse during the last 90 days?: No Result: 0
[2021-10-24 13:07] LABS: Source Nasal/Nares
[2021-10-24 13:23] LABS: Lactate 1.9 mmol/L (0.6-1.4)
[2021-10-24 13:54] LABS: COVID-19 PCR Negative (Negative)
[2021-10-24 13:55] LABS: Procalcitonin 0.8 ng/mL
--- NOTE | 2021-10-24 14:45 | W.PM.PROGNOT ---
Date of Service Date of service: 10/24/21 Time of Service: 14:45 Assessment and Plan Assessment and plan (1) Gallstones without obstruction of gallbladder: Status: Acute Assessment and plan: Patient improving Continue with ABX for 7 days. If he is discharged then switch to Augmentin and finish a 7 day course Not a candidate for surgery at [facility] unfortunately Would refer patient to General Surgery at [facility] to discuss possible surgery Qualifiers: Cholelithiasis location: gallbladder Cholecystitis presence: with cholecystitis Cholecystitis acuity: acute Qualified Code(s): K80.00 - Calculus of gallbladder with acute cholecystitis without obstruction Subjective Subjective Interval history since last seen: Patient is doing well. No complaints Exam GI Palpation: soft and nontender Objective Last Vital Signs Temp 97.5 F L 10/24/21 11:57 Pulse 66 10/24/21 11:57 Resp 18 10/24/21 11:57 BP 125/67 10/24/21 11:57 Pulse Ox 96 10/24/21 11:57 Laboratory Results - last 24 hr 10/24/21 10/24/21 10/24/21 06:30 06:30 06:30 WBC 8.90 RBC 2.79 L Hgb 8.2 L Hct 25.3 L MCV 90.7 MCH 29.4 MCHC 32.4 RDW 13.0 Plt Count 130 MPV 9.9 Immature Gran % 0.6 Neutrophils % 79.7 Lymphocytes % 10.7 Monocytes % 7.3 Eosinophils % 1.6 Basophils % 0.1 Nucleated RBC % 0 Absolute Neutrophils 7.10 H Absolute Lymphocytes 0.95 L Absolute Monocytes 0.65 Absolute Eosinophils 0.14 Absolute Basophils 0.01 VBG Lactate Sodium 134 L Potassium 3.7 Chloride 101 Carbon Dioxide 23.8 Anion Gap 9.2 BUN 27 H Creatinine 1.5 H Estimated GFR/1.73 m2 45.26 Glucose 193 H Calcium 8.4 L C-Reactive Protein 24.14 H Procalcitonin COVID-19 Source SARS-CoV-2 (PCR) 10/24/21 10/24/21 13:02 13:15 WBC RBC Hgb Hct MCV MCH MCHC RDW Plt Count MPV Immature Gran % Neutrophils % Lymphocytes % Monocytes % Eosinophils % Basophils % Nucleated RBC % Absolute Neutrophils Absolute Lymphocytes Absolute Monocytes Absolute Eosinophils Absolute Basophils VBG Lactate 1.9 H Sodium Potassium Chloride Carbon Dioxide Anion Gap BUN Creatinine Estimated GFR/1.73 m2 Glucose Calcium C-Reactive Protein Procalcitonin 0.8 COVID-19 Source Nasal/Nares SARS-CoV-2 (PCR) Negative PAWSS Have you Been Recently Intoxicated or Drunk Within the Last 30 days?: No Have you Ever Experienced Previous Episodes of Alcohol Withdrawal?: No Have you ever Experienced Withdrawal Seizures?: No Have you ever Experienced Delirium Tremens(DT)s?: No Have you ever undergone Alcohol Rehabilitation Treatment (i.e, inpt ot outpatient treatment programs)?: No Have you ever Experienced Blackouts?: No Have you ever Combined Alcohol with other Downers within the last 90 days?: No Have you ever Combined Alcohol with any other Substance of Abuse during the last 90 days?: No Result: 0
[2021-10-24 19:59] VITALS: BP 149/62; PULSE 78; RESP 18; TEMP 37; O2SAT 96
[2021-10-24] MEDS: Atorvastatin 40 MG TAB 80 MG PO (22:34)
[2021-10-25] MEDS: PIPERACILLIN/TAZO 3.375 GM in Normal Saline 50 ML IVPB (07:14)
[2021-10-25] MEDS: Levothyroxine 50 MCG TAB PO (07:14)
[2021-10-25] MEDS: Normal Saline Flush 10 ML SYR IVP ×3 (07:15→11:51)
[2021-10-25 07:25] LABS: Abs Immature Grans 0.02 10^3/uL (0.0-0.06); Absolute Basophil Count 0.01 10^3/uL (0.0-0.2); Absolute Eosinophil Count 0.13 10^3/uL (0.0-0.7); Absolute Lymphocyte Count 0.96 10^3/uL (1.2-3.4); Absolute Monocyte Count 0.63 10^3/uL (0.1-0.8); Absolute Neutrophil Count 5.05 10^3/uL (1.2-6.7); Basophils % 0.1; Eosinophils % 1.9; HCT 26.6 % (40.0-50.0); HGB 8.7 g/dL (13.5-17.5); Immature Grans % 0.3; Lymphocytes % 14.1; MCHC 32.7 % (32.0-36.0); MCV 88.7 fL (80-95); MPV 9.7 fL (8.0-11.0); Monocytes % 9.3; Neutrophils % 74.3; Nucleated RBC 0 %; Platelet Count 150 10^3/uL (130-400); RDW 12.6 % (11.8-14.1); RDW-SD 41.2 fL
[2021-10-25 07:46] LABS: Anion Gap 9.8 mmol/L (3-11); BUN 25 mg/dL (7-18); C-Reactive Protein 12.82 mg/dL (0.0-0.3); CO2 23.2 mmol/L (21.0-32.0); CREATININE 1.5 mg/dL (0.70-1.30); Calcium 8.5 mg/dL (8.5-10.1); Chloride 100 mmol/L (98-107); Estimated GFR 45.26 (mL/min/1.73m2); Glucose 225 mg/dL (74-106); Potassium 3.9 mmol/L (3.5-5.1); Sodium 133 mmol/L (136-145)
[2021-10-25] MEDS: Multivitamin TAB 1 TAB PO (08:08)
[2021-10-25] MEDS: Lisinopril 20 MG TAB 40 MG PO (08:08)
[2021-10-25] MEDS: Carvedilol 25 MG TAB PO (08:09)
[2021-10-25] MEDS: Tamsulosin 0.4 MG CAPCR PO (08:09)
[2021-10-25] MEDS: amLODIPine 5 MG TAB PO (08:09)
[2021-10-25] MEDS: Ferrous Sulfate 325 MG TAB PO (08:09)
[2021-10-25] MEDS: Cyanocobalamin 500 MCG TAB 5000 MCG PO (08:09)
[2021-10-25] MEDS: Pantoprazole 40 MG VIAL IVP (08:10)
[2021-10-25] MEDS: Insulin Aspart 300 UNITS/3 ML PEN SC (08:10)
[2021-10-25 08:29] VITALS: BP 173/71; PULSE 71; RESP 18; TEMP 36.8; O2SAT 97
--- NOTE | 2021-10-25 08:42 | CMPROGNOTE_ITS ---
- If Service Date Differs Date of service: 10/25/21 Time of Service: 08:42 Care Management Progress Note S/O: A: 76 year old male admitted to [facility] on 10/22/21 for epigastric pain P: Anticipate Tino will be discharged home with no new services when medically cleared by provider. He will transport via private vehicle with family and follow up with community providers.
--- NOTE | 2021-10-25 11:04 | DSE_ITS ---
Date of service: 10/25/21 Time of Service: 11:04 DS: Diagnosis Discharge Diagnosis (1) Abdominal pain: Status: Resolved (2) Gallstones without obstruction of gallbladder: Status: Acute (3) Coronary artery disease involving shoshone-paiute coronary artery of shoshone-paiute heart: Status: Acute (4) Chronic renal insufficiency, stage III (moderate): Status: Acute (5) Hypothyroidism: Status: Chronic (6) Type 2 diabetes mellitus with hyperglycemia: Status: Acute (7) BPH loc w urin obs/LUTS: Status: Chronic Discharge Plan Disposition Patient Disposition: HOME Condition: Stable Discharge Details Reason For Visit: Epigastric Pain Admit Date/Time: 10/24/21 08:44 Admit Provider: Billy Roman Attending Provider: Billy Roman Primary Care Provider: Mike Gómez [facility] Course Hospital Course: This is a 76 year old male with multiple medical problems, including DM, CAD, GERD, myelodysplasia, CRF -- here with one day of intermittent epigastric pain. Work up showed a white count 9, Hct 28 (approx baseline); normal electrolytes; normal lipase and transaminases; BUN 35, Creat 1.7 (approx baseline), and negative trop and EKG. He received GI cocktail w/o effect. 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 Case was reviewed with vascular at [facility] who felt this was not likely responsible for symptoms and advised further UGI work up. He was admitted to med/surg with a surgical consult. While on med surg his symptoms slowly improved. surgery initiated zosyn IV for suspected gall bladder disease. his ultrasound was unremarkable and his pain continued to improve. His labs were followed and white count normalized. inflammatory markers were climbing and now normalizing. He has no longer had fever, white count normalized, tolerating PO regular diet. He will be discharged to home and will be given augmentin to complete a 7 day course per surgery recommendations. Should he need a cholecystectomy he will need to have his surgery at [facility] d/t comorbidities per our anesthesia department. referral for general surgery at [facility] placed. discharged with no new services. discussed with Dr Del Toro Home Meds and New Rx's Prescriptions: New amoxicillin-pot clavulanate [Augmentin] 875-125 mg tablet 1 tab PO BID Qty: 9 RF: 0 Continued multivitamin Tablet 1 tab PO DAILY RF: 0 aspirin [Adult Aspirin Regimen] 81 mg tablet,delayed release (DR/EC) 81 mg PO DAILY RF: 0 cholecalciferol (vitamin D3) [Vitamin D3] 50 mcg (2,000 unit) capsule 50 mcg PO BID RF: 0 mecobalamin (vitamin B12) 5,000 mcg tablet,disintegrating 5,000 mcg PO DAILY RF: 0 atorvastatin 80 mg tablet 80 mg PO QHS Qty: 90 RF: 3 (DME) blood-glucose meter [Accu-Chek Goldie Plus Meter] Misc See Rx Instructions .ROUTE .MEDSUPPLY Qty: 1 RF: 0 levothyroxine 50 mcg tablet 50 mcg PO DAILY Qty: 90 RF: 3 lisinopril 40 mg tablet 40 mg PO DAILY Qty: 90 RF: 3 metformin 1,000 mg tablet 1,000 mg PO BID Qty: 180 RF: 3 omeprazole 20 mg capsule,delayed release(DR/EC) 20 mg PO DAILY Qty: 90 RF: 3 Januvia 100 mg tablet 100 mg PO DAILY Qty: 90 RF: 3 tamsulosin 0.4 mg capsule 0.4 mg PO DAILY Qty: 90 RF: 3 carvedilol 25 mg tablet 25 mg PO BID Qty: 180 RF: 3 amlodipine 5 mg tablet 5 mg PO BID Qty: 180 RF: 3 torsemide 20 mg tablet 10 mg PO DAILY RF: 0 (DME) Accu-Chek Goldie Plus test strp Strip See Rx Instructions .ROUTE .MEDSUPPLY Qty: 100 RF: 6 albuterol sulfate 90 mcg/actuation HFA aerosol inhaler 2 puff inhalation QID PRNQty: 18 RF: 0 glimepiride 1 mg tablet 2 mg PO DAILY AM RF: 0 Discharge Instructions Instructions: Biliary Colic (ED), Gallstones (DC), Low Fat Diet (DC) Stand Alone Forms: Nursing Discharge Form Referrals: GENERAL SURG,[facility] [OTHER] - Mike Gómez DO [Primary Care Provider] - 11/06/21 10:15 am Activity:: Activity as Tolerated Equipment/Supplies:: No Equipment Needed Diet:: low fat bland Discharge Orders Discharge Orders: Discharge Order (Routine); Ordered 10/25/21 Ordered By: Dotty Mcmahan Discharge Data Discharge Date/Time-TO BE ENTERED AT DEPARTURE: 10/25/21 12:29 DS: Summary Time Spent with Patient providing and/or coordinating discharge services: Greater than 30 minutes Status at Discharge Functional status at discharge: independent ambulation Overall status at discharge: patient is progressing back to baseline Mental Status: mental status grossly normal Speech and Movement: speech and movement normal Mood: congruent mood Affect: normal affect Exam Const General: cooperative, healthy appearing, comfortable, no acute distress, well developed and well groomed Nutritional Appearance: overweight Orientation: alert, awake and oriented x3 HENMT Head: normal to inspection, normocephalic and atraumatic Mouth: moist mucous membranes abnormal (slightly dry) Resp Effort & Inspection: normal respiratory effort Auscultation: clear to auscultation bilaterally and diminished lung sounds (bases) bilaterally Cardio Rate: regular rate Rhythm: regular rhythm GI Inspection: distended (round, soft, tender upper right and epigastrim ) Auscultation: normal bowel sounds Skin General skin exam: no rashes or lesions noted Neuro General: patient alert, patient awake and patient oriented x3 Extrem General: normal to inspection, full ROM and no pedal edema Psych Mental Status: mental status grossly normal Speech and Movement: speech and movement normal Mood: congruent mood Affect: normal affect DS: Data Vitals/I&O Vitals and I&O: Vital Signs Temperature 36.8 C 10/25/21 08:29 Temperature Source Tympanic 10/25/21 08:29 Pulse 71 10/25/21 08:29 Pulse Rhythm Regular 10/25/21 09:41 Pulse 78 10/22/21 01:20 Respiratory Rate 18 10/25/21 08:29 Respiratory Effort Non-Labored 10/25/21 09:41 Respiratory Depth Normal 10/25/21 09:41 Respiratory Pattern Normal 10/25/21 09:41 Blood Pressure 173/71 H 10/25/21 08:29 Blood Pressure Mean 80 10/22/21 01:16 Blood Pressure Position Supine 10/21/21 20:21 Pulse Oximetry 97 10/25/21 08:29 Oxygen Delivery Method Room Air 10/25/21 08:29 Oxygen Flow Rate 0 10/25/21 08:29 Fraction of Inspired Oxygen (FIO2) 2 10/21/21 22:42 Pain Level 0 10/25/21 08:29 Intake & Output 10/24/21 10/24/21 10/25/21 11:59 23:59 11:59 Intake Total 350 / 650 300 / 650 50 / 50 Output Total 550 / 550 200 / 200 Balance -200 / 100 300 / 100 -150 / -150 Weight 100.1 kg 101.2 kg Intake: IV 100 / 150 50 / 150 50 / 50 Oral 250 / 500 250 / 500 Output: Urine 550 / 550 200 / 200 Other: Urine Color Light Judith Yellow Urine Appearance Clear Clear Clear Urine Odor Strong Stool Occult Blood Negative Stool Size Copious Stool Characteristics Soft Formed Voiding Methods Urinal Urinal Data Completed and Pending Labs on day of discharge: Labs from last 24 hours 10/25/21 10/25/21 10/24/21 07:09 07:09 13:15 WBC 6.80 RBC 3.00 L Hgb 8.7 L Hct 26.6 L MCV 88.7 MCH 29.0 MCHC 32.7 RDW 12.6 Plt Count 150 MPV 9.7 Immature Gran % 0.3 Neutrophils % 74.3 Lymphocytes % 14.1 Monocytes % 9.3 Eosinophils % 1.9 Basophils % 0.1 Nucleated RBC % 0 Absolute Neutrophils 5.05 Absolute Lymphocytes 0.96 L Absolute Monocytes 0.63 Absolute Eosinophils 0.13 Absolute Basophils 0.01 VBG Lactate 1.9 H Sodium 133 L Potassium 3.9 Chloride 100 Carbon Dioxide 23.2 Anion Gap 9.8 BUN 25 H Creatinine 1.5 H Estimated GFR/1.73 m2 45.26 Glucose 225 H Calcium 8.5 C-Reactive Protein 12.82 H Procalcitonin 0.8 COVID-19 Source SARS-CoV-2 (PCR) 10/24/21 13:02 WBC RBC Hgb Hct MCV MCH MCHC RDW Plt Count MPV Immature Gran % Neutrophils % Lymphocytes % Monocytes % Eosinophils % Basophils % Nucleated RBC % Absolute Neutrophils Absolute Lymphocytes Absolute Monocytes Absolute Eosinophils Absolute Basophils VBG Lactate Sodium Potassium Chloride Carbon Dioxide Anion Gap BUN Creatinine Estimated GFR/1.73 m2 Glucose Calcium C-Reactive Protein Procalcitonin COVID-19 Source Nasal/Nares SARS-CoV-2 (PCR) Negative Preliminary micro results at discharge 10/22/21 06:50 Blood Culture - Preliminary Blood NO GROWTH 72 HOURS 10/22/21 06:45 Blood Culture - Preliminary Blood NO GROWTH 72 HOURS PFSH All Active Problems (Updated 10/24/21 @ 16:58 by Dotty Mcmahan NP) Discharge planning issues (Acute) Gallstones without obstruction of gallbladder (Acute) Anemia of chronic disease (Acute) Coronary artery disease involving shoshone-paiute coronary artery of shoshone-paiute heart (Acute) Chronic diastolic heart failure (Acute) Essential hypertension (Acute) Chronic renal insufficiency, stage III (moderate) (Acute) Chest pain (Acute) BPH loc w urin obs/LUTS (Chronic) Hypothyroidism (Chronic) Vitamin B12 deficiency (Acute) Anemia (Chronic) Dyspnea on exertion (Acute) Malaise and fatigue (Acute) Primary open angle glaucoma of both eyes, severe stage (Acute) Seasonal allergic rhinitis (Acute) Multiple lung nodules on CT (Chronic) GERD without esophagitis (Acute) Benign prostatic hyperplasia (Chronic) Arteriosclerotic heart disease (Acute) Hyperlipidemia (Acute) Blindness of both eyes (Acute) Ischemic optic neuropathy (Acute) MDS (myelodysplastic syndrome) (Acute) Myocardial infarction (Chronic) Type 2 diabetes mellitus with hyperglycemia (Acute) Active Problem List Abdominal pain (Acute) Coronary artery disease involving shoshone-paiute coronary artery of shoshone-paiute heart (Acute) Chronic diastolic heart failure (Acute) Essential hypertension (Acute) Chronic renal insufficiency, stage III (moderate) (Acute) Chest pain (Acute) BPH loc w urin obs/LUTS (Chronic) Hypothyroidism (Chronic) Vitamin B12 deficiency (Acute) Anemia (Chronic) Dyspnea on exertion (Acute) Malaise and fatigue (Acute) Primary open angle glaucoma of both eyes, severe stage (Acute) Seasonal allergic rhinitis (Acute) Multiple lung nodules on CT (Chronic) GERD without esophagitis (Acute) Benign prostatic hyperplasia (Chronic) Arteriosclerotic heart disease (Acute) Hyperlipidemia (Acute) Blindness of both eyes (Acute) Ischemic optic neuropathy (Acute) MDS (myelodysplastic syndrome) (Acute) Myocardial infarction (Chronic) Type 2 diabetes mellitus with hyperglycemia (Acute) Surgical History H/O angioplasty (~1994) [facility] H/O heart artery stent (~2013) 3 stents per pt [facility] History of cataract surgery multiple surgeries between [id number] [facility] per pt History of nasal surgery S/P tonsillectomy (~1950) Status post glaucoma surgery multiple surgeries per pt between [id number] [facility] Family History Uncle Asthma Breast cancer Diabetes Heart disease Aunt Breast cancer Diabetes Daughter Diabetes Social History Smoking/Tobacco Use Status: Former Tobacco Use Quit Date: 11/17/82 Pack-years: 40 Tobacco: How many years used: 30 Smoking risk assessment performed?: Yes Alcohol Intake: current Alcohol Intake frequency: 0-2 drinks per day Alcohol type: wine Drug use: Never Substance use type: does not use Household members: spouse and family Housing: house Do you need help understanding health information?: Often current occupation: Retired Sexually active: No Do you think of yourself as: straight/heterosexual Current gender identity: male What is your relationship status?: Panel score (0-1 are the most socially isolated patients): 1 Do you feel safe at home: Yes Do you feel safe in your relationship?: Yes
--- NOTE | 2021-10-25 11:05 | W.PM.PROGNOT ---
Date of Service Date of service: 10/25/21 Time of Service: 11:05 Assessment and Plan Assessment and plan (1) Gallstones without obstruction of gallbladder: Status: Acute Assessment and plan: pt is not a surgical candidate for nvrh if continues to have RUQ/ftty food intolerance or diarrhea- refer down to [facility] gen sx stable for d/c from general sx standpoint f/u pcp in 1 wks time Qualifiers: Cholelithiasis location: gallbladder Cholecystitis presence: with cholecystitis Cholecystitis acuity: acute Qualified Code(s): K80.00 - Calculus of gallbladder with acute cholecystitis without obstruction (2) Anemia of chronic disease: Status: Acute Subjective Subjective Interval history since last seen: Pt is doing well. no headaches. No CP or SOB. no productive cough. no dysuria. no leg pain or swelling. pt tolerating po's. no n/v no RUQ pain. no cough today cxr- neg. pt is being d/c'ed today Exam Resp Effort & Inspection: normal respiratory effort and able to speak in complete sentences Auscultation: clear to auscultation bilaterally Cardio Rate: regular rate Rhythm: regular rhythm GI Palpation: soft and nontender Auscultation: normal bowel sounds Objective Last Vital Signs Temp 36.8 C 10/25/21 08:29 Pulse 71 10/25/21 08:29 Resp 18 10/25/21 08:29 BP 173/71 H 10/25/21 08:29 Pulse Ox 97 10/25/21 08:29 Laboratory Results - last 24 hr 10/24/21 10/24/21 10/25/21 13:02 13:15 07:09 WBC RBC Hgb Hct MCV MCH MCHC RDW Plt Count MPV Immature Gran % Neutrophils % Lymphocytes % Monocytes % Eosinophils % Basophils % Nucleated RBC % Absolute Neutrophils Absolute Lymphocytes Absolute Monocytes Absolute Eosinophils Absolute Basophils VBG Lactate 1.9 H Sodium 133 L Potassium 3.9 Chloride 100 Carbon Dioxide 23.2 Anion Gap 9.8 BUN 25 H Creatinine 1.5 H Estimated GFR/1.73 m2 45.26 Glucose 225 H Calcium 8.5 C-Reactive Protein 12.82 H Procalcitonin 0.8 COVID-19 Source Nasal/Nares SARS-CoV-2 (PCR) Negative 10/25/21 07:09 WBC 6.80 RBC 3.00 L Hgb 8.7 L Hct 26.6 L MCV 88.7 MCH 29.0 MCHC 32.7 RDW 12.6 Plt Count 150 MPV 9.7 Immature Gran % 0.3 Neutrophils % 74.3 Lymphocytes % 14.1 Monocytes % 9.3 Eosinophils % 1.9 Basophils % 0.1 Nucleated RBC % 0 Absolute Neutrophils 5.05 Absolute Lymphocytes 0.96 L Absolute Monocytes 0.63 Absolute Eosinophils 0.13 Absolute Basophils 0.01 VBG Lactate Sodium Potassium Chloride Carbon Dioxide Anion Gap BUN Creatinine Estimated GFR/1.73 m2 Glucose Calcium C-Reactive Protein Procalcitonin COVID-19 Source SARS-CoV-2 (PCR) PAWSS Have you Been Recently Intoxicated or Drunk Within the Last 30 days?: No Have you Ever Experienced Previous Episodes of Alcohol Withdrawal?: No Have you ever Experienced Withdrawal Seizures?: No Have you ever Experienced Delirium Tremens(DT)s?: No Have you ever undergone Alcohol Rehabilitation Treatment (i.e, inpt ot outpatient treatment programs)?: No Have you ever Experienced Blackouts?: No Have you ever Combined Alcohol with other Downers within the last 90 days?: No Have you ever Combined Alcohol with any other Substance of Abuse during the last 90 days?: No Result: 0
[2021-10-25] MEDS: Furosemide 40 MG/4 ML VIAL IVP (11:51)
--- NOTE | 2021-10-25 14:59 | TELEFU_ITS ---
Date of service: 10/25/21 Time of Service: 14:59 Nutrition Note NOTE: Very brief encounter with Mr. Robb to provide nutrition education on low fat diet until his gallbladder concerns are fully addressed and he receives guidance otherwise. Gave him a sample menu and general list of items to avoid such as greasy, fried, strong-odor foods and excessive fiber. Pt verbalized understanding and told me his has already told him his diet will change when he arrives home. Denies any other nutrition concerns at this time. Storm John NDTR ? Health Care Administrator Time Spent in Nutritional Counseling and Treatment: 15 minutes
--- NOTE | 2021-10-25 15:00 | TELEFU_ITS ---
Date of service: 10/25/21 Time of Service: 15:01 Nutrition Note NOTE: Very brief encounter with Mr. Robb to provide nutrition education on low fat diet until his gallbladder concerns are fully addressed and he receives guidance otherwise. Gave him a sample menu and general list of items to avoid such as greasy, fried, strong-odor foods and excessive fiber. Pt verbalized understanding and told me his has already told him his diet will change when he arrives home. Denies any other nutrition concerns at this time. Storm John NDTR ? [place] Time Spent in Nutritional Counseling and Treatment: 15 minutes
--- NOTE | 2021-10-25 16:57 | PDOC.CMDIS ---
- If Service Date Differs Date of service: 10/25/21 Time of Service: 16:57 LACE Index Scoring Tool - Questions: Length of Stay (in days): 2 Acuity (Admit via E.D.?): Yes Comorbidities: Congestive Heart Failure E.D. Visits: 2 - Answers: Total Score: 9 Risk of Readmission: Low Risk Care Management Discharge Reason for Hospitalization: Epigastric Pain Discharge Plan: Discharge home with no new services via private vehicle with family. Take antibiotics as prescribed and follow up with PCP and [facility] [place]. Patient/Family Education Needs: Review discharge instructions, limitations and plan to follow up with community providers. ask me three.
== END 2021-10-25 12:29 | disposition home or self-care (01) | DRG 445 ==
LOC: ER 10-22 00:59 → MS 10-22 01:57
PROVIDERS: Internal Medicine; Nurse Practitioner Acute Care; Surgery; Admitting Provider General Practice; Emergency Provider Student in an Organized Health Care Education/Training Program; PCP Family Medicine; Visit Provider General Practice
DX: K80.20 Calculus of gallbladder without cholecystitis without obstruction (principal); I77.4 Celiac artery compression syndrome; I50.32 Chronic diastolic (congestive) heart failure; I13.0 Hypertensive heart and chronic kidney disease with heart failure and stage 1 through stage 4 chronic kidney disease, or unspecified chronic kidney disease; I25.10 Atherosclerotic heart disease of native coronary artery without angina pectoris; K21.9 Gastro-esophageal reflux disease without esophagitis; N18.9 Chronic kidney disease, unspecified; D46.9 Myelodysplastic syndrome, unspecified; N18.30 Chronic kidney disease, stage 3 unspecified; N40.1 Benign prostatic hyperplasia with lower urinary tract symptoms; E03.9 Hypothyroidism, unspecified; E53.8 Deficiency of other specified B group vitamins; H40.1133 Primary open-angle glaucoma, bilateral, severe stage; E78.5 Hyperlipidemia, unspecified; I25.2 Old myocardial infarction; Z95.5 Presence of coronary angioplasty implant and graft; H47.013 Ischemic optic neuropathy, bilateral; H54.3 Unqualified visual loss, both eyes; Z20.822 Contact with and (suspected) exposure to COVID-19; E11.22 Type 2 diabetes mellitus with diabetic chronic kidney disease; E11.65 Type 2 diabetes mellitus with hyperglycemia; Z79.84 Long term (current) use of oral hypoglycemic drugs; N13.9 Obstructive and reflux uropathy, unspecified
CPT/HCPCS: 36410; 36415; 71275; 74177; 80048; 80053; 83690; 84145; 85027; 87040; 87635; 93005; 96361; 96374; 96375; 96376; 97161; 97530; 99212; 99225; 99231; 99232; 99285; 71046; 76705; 81003; 81015; 83540; 83550; 83605; 83735; 83880; 84443; 84484; 85025; 86140; 93010; 99219; 99233; 99239; G0378; J1940; J2543; J3475; J3490

== ENCOUNTER 2023-03-27 02:57 | Outpatient (CLI) | payer MEDICARE, SELFPAY ==
[2023-03-27 08:37] LABS: Abs Immature Grans 0.04 10^3/uL (0.0-0.06); Absolute Basophil Count 0.02 10^3/uL (0.0-0.2); Absolute Eosinophil Count 0.11 10^3/uL (0.0-0.7); Absolute Lymphocyte Count 1.63 10^3/uL (1.2-3.4); Absolute Monocyte Count 0.54 10^3/uL (0.1-0.8); Absolute Neutrophil Count 5.39 10^3/uL (1.2-6.7); Basophils % 0.3; Eosinophils % 1.4; HCT 28.2 % (40.0-50.0); HGB 9.5 g/dL (13.5-17.5); Immature Grans % 0.5; Lymphocytes % 21.1; MCH 29.9 pg (27.0-33.0); MCHC 33.7 % (32.0-36.0); MCV 89 fL (80-95); MPV 9.5 fL (8.0-11.0); Neutrophils % 69.7; Platelet Count 179 10^3/uL (130-400); RBC 3.18 10^6/uL (4.36-5.78); RDW-SD 45.2 fL; Reticulocyte 1.8 % (0.5-2.4); WBC 7.73 10^3/uL (4.4-10.8)
[2023-03-27 08:55] LABS: ALT 26 U/L (16-63); AST 12 U/L (15-37); Albumin 3.3 g/dL (3.4-5.0); Alkaline Phosphatase 66 U/L (46-116); Anion Gap 9.4 mmol/L (3-11); BUN 32 mg/dL (7-18); Bilirubin, Total 0.4 mg/dL (0.2-1.0); CO2 27.6 mmol/L (21.0-32.0); CREATININE 1.5 mg/dL (0.70-1.30); Calcium 8.7 mg/dL (8.5-10.1); Chloride 105 mmol/L (98-107); Estimated GFR 46.77 (mL/min/1.73m2); Glucose 165 mg/dL (74-106); Potassium 4.2 mmol/L (3.5-5.1); Sodium 142 mmol/L (136-145); Total Protein 6.2 g/dL (6.4-8.2)
== END 2023-03-27 02:58 | disposition home or self-care (01) ==
LOC: LBO 02:57
PROVIDERS: Visit Provider Internal Medicine Hematology & Oncology
DX: D64.9 Anemia, unspecified (principal)
CPT/HCPCS: 36415; 80053; 85025; 85045

== ENCOUNTER 2023-09-24 01:54 | Outpatient (CLI) | payer MEDICARE, SELFPAY ==
[2023-09-24 13:37] LABS: Abs Immature Grans 0.02 10^3/uL (0.0-0.06); Absolute Basophil Count 0.03 10^3/uL (0.0-0.2); Absolute Lymphocyte Count 1.66 10^3/uL (1.2-3.4); Absolute Monocyte Count 0.47 10^3/uL (0.1-0.8); Absolute Neutrophil Count 4.46 10^3/uL (1.2-6.7); Basophils % 0.4; Eosinophils % 1.5; HCT 29.7 % (40.0-50.0); HGB 9.9 g/dL (13.5-17.5); Immature Grans % 0.3; Lymphocytes % 24.6; MCH 29.1 pg (27.0-33.0); MCHC 33.3 % (32.0-36.0); MCV 87 fL (80-95); MPV 9.3 fL (8.0-11.0); Neutrophils % 66.2; Platelet Count 195 10^3/uL (130-400); RDW 14.2 % (11.8-14.1); Reticulocyte 1.6 % (0.5-2.4); WBC 6.74 10^3/uL (4.4-10.8)
== END 2023-09-24 01:55 | disposition home or self-care (01) ==
LOC: LBO 01:55
PROVIDERS: Visit Provider Internal Medicine Hematology & Oncology
DX: D64.9 Anemia, unspecified (principal)
CPT/HCPCS: 36415; 85025; 85045

== ENCOUNTER 2024-03-22 05:17 | Outpatient (CLI) | payer MEDICARE, SELFPAY ==
[2024-03-22 08:54] LABS: Abs Immature Grans 0.03 10^3/uL (0.0-0.06); Absolute Basophil Count 0.02 10^3/uL (0.0-0.2); Absolute Eosinophil Count 0.25 10^3/uL (0.0-0.7); Absolute Monocyte Count 0.57 10^3/uL (0.1-0.8); Basophils % 0.3 %; Eosinophils % 3.6 %; HGB 8.3 g/dL (13.5-17.5); Immature Grans % 0.4 %; Lymphocytes % 21.5 %; MCH 28.7 pg (27.0-33.0); MCHC 31.9 % (32.0-36.0); MCV 90 fL (80-95); Monocytes % 8.2 %; Platelet Count 200 10^3/uL (130-400); RBC 2.89 10^6/uL (4.36-5.78); RDW-SD 45.6 fL; WBC 6.97 10^3/uL (4.4-10.8)
[2024-03-22 09:35] LABS: ALT 23 U/L (16-63); AST 12 U/L (15-37); Albumin 3.2 g/dL (3.4-5.0); Alkaline Phosphatase 88 U/L (46-116); BUN 34 mg/dL (7-18); Bilirubin, Total 0.4 mg/dL (0.2-1.0); CREATININE 1.7 mg/dL (0.70-1.30); Calcium 8.8 mg/dL (8.5-10.1); Chloride 105 mmol/L (98-107); Ferritin 34 ng/mL (26-388); Glucose 198 mg/dL (74-106); Potassium 4.5 mmol/L (3.5-5.1); Sodium 142 mmol/L (136-145); Total Protein 6.4 g/dL (6.4-8.2); Vitamin B12 > 2000 pg/mL (193-986)
[2024-03-22 09:36] LABS: Folate > 20.0 ng/mL (8.6-20.0)
== END 2024-03-22 05:18 | disposition home or self-care (01) ==
PROVIDERS: Visit Provider Internal Medicine Hematology & Oncology
DX: N18.31 Chronic kidney disease, stage 3a (principal); D63.1 Anemia in chronic kidney disease
CPT/HCPCS: 36415; 80053; 82607; 82728; 82746; 85025

== ENCOUNTER 2024-05-06 01:06 | Outpatient (CLI) | payer MEDICARE, SELFPAY ==
[2024-05-06 07:33] LABS: Abs Immature Grans 0.02 10^3/uL (0.0-0.06); Absolute Basophil Count 0.02 10^3/uL (0.0-0.2); Absolute Eosinophil Count 0.23 10^3/uL (0.0-0.7); Absolute Lymphocyte Count 1.74 10^3/uL (1.2-3.4); Absolute Monocyte Count 0.51 10^3/uL (0.1-0.8); Absolute Neutrophil Count 3.55 10^3/uL (1.2-6.7); Basophils % 0.3 %; Eosinophils % 3.8 %; HCT 25.3 % (40.0-50.0); HGB 8.2 g/dL (13.5-17.5); Immature Grans % 0.3 %; Lymphocytes % 28.7 %; MCH 28.8 pg (27.0-33.0); MCHC 32.4 % (32.0-36.0); MCV 89 fL (80-95); MPV 8.7 fL (8.0-11.0); Monocytes % 8.4 %; Neutrophils % 58.5 %; Platelet Count 182 10^3/uL (130-400); RBC 2.85 10^6/uL (4.36-5.78); RDW 14.9 % (11.8-14.1); WBC 6.07 10^3/uL (4.4-10.8)
[2024-05-06 08:00] LABS: Ferritin 30 ng/mL (26-388)
== END 2024-05-06 01:07 | disposition home or self-care (01) ==
PROVIDERS: Visit Provider Nurse Practitioner Family
DX: N18.31 Chronic kidney disease, stage 3a (principal)
CPT/HCPCS: 36415; 82728; 85025

== ENCOUNTER 2024-06-03 02:37 | Outpatient (CLI) | payer MEDICARE, SELFPAY ==
[2024-06-03 10:40] LABS: Abs Immature Grans 0.01 10^3/uL (0.0-0.06); Absolute Basophil Count 0.01 10^3/uL (0.0-0.2); Absolute Eosinophil Count 0.12 10^3/uL (0.0-0.7); Absolute Lymphocyte Count 1.55 10^3/uL (1.2-3.4); Absolute Monocyte Count 0.49 10^3/uL (0.1-0.8); Absolute Neutrophil Count 3.91 10^3/uL (1.2-6.7); Basophils % 0.2 %; HCT 29.7 % (40.0-50.0); HGB 9.7 g/dL (13.5-17.5); Immature Grans % 0.2 %; Lymphocytes % 25.5 %; MCH 29.1 pg (27.0-33.0); MCHC 32.7 % (32.0-36.0); MCV 89 fL (80-95); MPV 8.8 fL (8.0-11.0); Neutrophils % 64.1 %; Platelet Count 185 10^3/uL (130-400); RBC 3.33 10^6/uL (4.36-5.78); RDW 15.4 % (11.8-14.1); RDW-SD 50.4 fL; WBC 6.09 10^3/uL (4.4-10.8)
[2024-06-03 11:15] LABS: Ferritin 247 ng/mL (26-388)
== END 2024-06-03 02:38 | disposition home or self-care (01) ==
PROVIDERS: Visit Provider Nurse Practitioner Family
DX: N18.31 Chronic kidney disease, stage 3a (principal); D50.0 Iron deficiency anemia secondary to blood loss (chronic); D63.1 Anemia in chronic kidney disease
CPT/HCPCS: 36415; 82728; 85025

== ENCOUNTER 2024-07-21 03:05 | Outpatient (CLI) | payer MEDICARE, SELFPAY ==
[2024-07-21 11:59] LABS: Abs Immature Grans 0.03 10^3/uL (0.0-0.06); Absolute Basophil Count 0.02 10^3/uL (0.0-0.2); Absolute Eosinophil Count 0.08 10^3/uL (0.0-0.7); Absolute Lymphocyte Count 1.61 10^3/uL (1.2-3.4); Absolute Monocyte Count 0.55 10^3/uL (0.1-0.8); Absolute Neutrophil Count 4.42 10^3/uL (1.2-6.7); Basophils % 0.3 %; Eosinophils % 1.2 %; HCT 29.6 % (40.0-50.0); HGB 9.9 g/dL (13.5-17.5); Immature Grans % 0.4 %; MCH 30.2 pg (27.0-33.0); MCHC 33.4 % (32.0-36.0); MCV 90 fL (80-95); MPV 9.1 fL (8.0-11.0); Monocytes % 8.2 %; Neutrophils % 65.9 %; Platelet Count 219 10^3/uL (130-400); RBC 3.28 10^6/uL (4.36-5.78); RDW 14.4 % (11.8-14.1); RDW-SD 47.8 fL; WBC 6.71 10^3/uL (4.4-10.8)
[2024-07-21 12:31] LABS: Ferritin 156 ng/mL (26-388)
== END 2024-07-21 03:06 | disposition home or self-care (01) ==
PROVIDERS: PCP Internal Medicine Hematology & Oncology; Visit Provider Internal Medicine Hematology & Oncology
DX: D50.0 Iron deficiency anemia secondary to blood loss (chronic) (principal)
CPT/HCPCS: 36415; 82728; 85025

== ENCOUNTER 2024-10-06 02:34 | Outpatient (CLI) | payer MEDICARE, SELFPAY ==
[2024-10-06 12:08] LABS: Abs Immature Grans 0.02 10^3/uL (0.0-0.06); Absolute Basophil Count 0.02 10^3/uL (0.0-0.2); Absolute Eosinophil Count 0.08 10^3/uL (0.0-0.7); Absolute Lymphocyte Count 1.52 10^3/uL (1.2-3.4); Absolute Neutrophil Count 3.75 10^3/uL (1.2-6.7); Basophils % 0.3 %; Eosinophils % 1.4 %; HCT 26.8 % (40.0-50.0); HGB 9.1 g/dL (13.5-17.5); Immature Grans % 0.3 %; Lymphocytes % 26.3 %; MCV 91 fL (80-95); MPV 8.7 fL (8.0-11.0); Monocytes % 6.9 %; Neutrophils % 64.8 %; Platelet Count 179 10^3/uL (130-400); RBC 2.94 10^6/uL (4.36-5.78); RDW 13.1 % (11.8-14.1); RDW-SD 43.5 fL; WBC 5.79 10^3/uL (4.4-10.8)
[2024-10-06 12:43] LABS: Ferritin 69 ng/mL (26-388)
== END 2024-10-06 02:35 | disposition home or self-care (01) ==
LOC: LBO 02:34
PROVIDERS: PCP Internal Medicine Hematology & Oncology; Visit Provider Internal Medicine Hematology & Oncology
DX: D50.0 Iron deficiency anemia secondary to blood loss (chronic) (principal)
CPT/HCPCS: 36415; 82728; 85025

== ENCOUNTER 2024-10-22 02:02 | Outpatient (CLI) | payer MEDICARE, SELFPAY ==
[2024-10-22 11:04] LABS: Abs Immature Grans 0.02 10^3/uL (0.0-0.06); Absolute Basophil Count 0.02 10^3/uL (0.0-0.2); Absolute Lymphocyte Count 1.36 10^3/uL (1.2-3.4); Absolute Monocyte Count 0.44 10^3/uL (0.1-0.8); Absolute Neutrophil Count 4.04 10^3/uL (1.2-6.7); Basophils % 0.3 %; Eosinophils % 1.7 %; HCT 30.2 % (40.0-50.0); HGB 9.9 g/dL (13.5-17.5); Immature Grans % 0.3 %; Lymphocytes % 22.7 %; MCH 30.1 pg (27.0-33.0); MCHC 32.8 % (32.0-36.0); MCV 92 fL (80-95); MPV 8.8 fL (8.0-11.0); Monocytes % 7.4 %; Neutrophils % 67.6 %; Platelet Count 193 10^3/uL (130-400); RBC 3.29 10^6/uL (4.36-5.78); RDW 13.3 % (11.8-14.1); RDW-SD 44.4 fL; WBC 5.98 10^3/uL (4.4-10.8)
== END 2024-10-22 02:03 | disposition home or self-care (01) ==
LOC: LBO 02:02
PROVIDERS: PCP Internal Medicine Hematology & Oncology; Visit Provider Internal Medicine Hematology & Oncology
DX: N18.31 Chronic kidney disease, stage 3a (principal); D63.1 Anemia in chronic kidney disease
CPT/HCPCS: 36415; 85025

== ENCOUNTER 2024-11-03 04:30 | Outpatient (CLI) | payer MEDICARE, SELFPAY ==
[2024-11-03 13:43] LABS: Abs Immature Grans 0.01 10^3/uL (0.0-0.06); Absolute Basophil Count 0.02 10^3/uL (0.0-0.2); Absolute Eosinophil Count 0.08 10^3/uL (0.0-0.7); Absolute Lymphocyte Count 1.34 10^3/uL (1.2-3.4); Absolute Monocyte Count 0.49 10^3/uL (0.1-0.8); Absolute Neutrophil Count 4.03 10^3/uL (1.2-6.7); Basophils % 0.3 %; Eosinophils % 1.3 %; HCT 29.2 % (40.0-50.0); HGB 9.8 g/dL (13.5-17.5); Immature Grans % 0.2 %; Lymphocytes % 22.4 %; MCH 29.8 pg (27.0-33.0); MCHC 33.6 % (32.0-36.0); MCV 89 fL (80-95); Monocytes % 8.2 %; Neutrophils % 67.6 %; Platelet Count 203 10^3/uL (130-400); RBC 3.29 10^6/uL (4.36-5.78); RDW 13.2 % (11.8-14.1); RDW-SD 43.5 fL; WBC 5.97 10^3/uL (4.4-10.8)
[2024-11-03 14:11] LABS: Ferritin 18 ng/mL (26-388)
== END 2024-11-03 04:31 | disposition home or self-care (01) ==
LOC: LBO 04:30
PROVIDERS: PCP Internal Medicine Hematology & Oncology; Visit Provider Internal Medicine Hematology & Oncology
DX: N18.31 Chronic kidney disease, stage 3a (principal)
CPT/HCPCS: 36415; 82728; 85025

== ENCOUNTER 2024-11-18 04:11 | Outpatient (CLI) | payer MEDICARE, SELFPAY ==
[2024-11-18 13:59] LABS: Abs Immature Grans 0.01 10^3/uL (0.0-0.06); Absolute Basophil Count 0.03 10^3/uL (0.0-0.2); Absolute Eosinophil Count 0.09 10^3/uL (0.0-0.7); Absolute Monocyte Count 0.47 10^3/uL (0.1-0.8); Absolute Neutrophil Count 3.04 10^3/uL (1.2-6.7); Basophils % 0.6 %; Eosinophils % 1.8 %; HCT 33.3 % (40.0-50.0); HGB 11.1 g/dL (13.5-17.5); Immature Grans % 0.2 %; Lymphocytes % 27.8 %; MCH 29.7 pg (27.0-33.0); MCHC 33.3 % (32.0-36.0); MCV 89 fL (80-95); MPV 9.1 fL (8.0-11.0); Monocytes % 9.3 %; Neutrophils % 60.3 %; Platelet Count 177 10^3/uL (130-400); RBC 3.74 10^6/uL (4.36-5.78); RDW 14.8 % (11.8-14.1); RDW-SD 47.7 fL; WBC 5.04 10^3/uL (4.4-10.8)
== END 2024-11-18 04:12 | disposition home or self-care (01) ==
PROVIDERS: PCP Internal Medicine Hematology & Oncology; Visit Provider Internal Medicine Hematology & Oncology
DX: N18.31 Chronic kidney disease, stage 3a (principal); D63.1 Anemia in chronic kidney disease
CPT/HCPCS: 36415; 82728; 85025

== ENCOUNTER 2024-12-01 03:15 | Outpatient (CLI) | payer MEDICARE, SELFPAY ==
[2024-12-01 12:21] LABS: Abs Immature Grans 0.04 10^3/uL (0.0-0.06); Absolute Basophil Count 0.04 10^3/uL (0.0-0.2); Absolute Eosinophil Count 0.13 10^3/uL (0.0-0.7); Absolute Lymphocyte Count 1.49 10^3/uL (1.2-3.4); Absolute Monocyte Count 0.79 10^3/uL (0.1-0.8); Absolute Neutrophil Count 7.45 10^3/uL (1.2-6.7); Basophils % 0.4 %; Eosinophils % 1.3 %; HCT 36.9 % (40.0-50.0); HGB 12.1 g/dL (13.5-17.5); Immature Grans % 0.4 %; MCHC 32.8 % (32.0-36.0); MCV 92 fL (80-95); MPV 9.1 fL (8.0-11.0); Monocytes % 7.9 %; Platelet Count 177 10^3/uL (130-400); RBC 4.03 10^6/uL (4.36-5.78); RDW 14.8 % (11.8-14.1); RDW-SD 49.8 fL; WBC 9.94 10^3/uL (4.4-10.8)
[2024-12-01 13:03] LABS: Ferritin 157 ng/mL (26-388)
== END 2024-12-01 03:16 | disposition home or self-care (01) ==
PROVIDERS: PCP Internal Medicine Hematology & Oncology; Visit Provider Internal Medicine Hematology & Oncology
DX: N18.31 Chronic kidney disease, stage 3a (principal); D63.1 Anemia in chronic kidney disease; D64.9 Anemia, unspecified; D50.0 Iron deficiency anemia secondary to blood loss (chronic)
CPT/HCPCS: 36415; 82728; 85025

== ENCOUNTER 2024-12-29 04:43 | Outpatient (CLI) | payer MEDICARE, SELFPAY ==
[2024-12-29 14:50] LABS: Abs Immature Grans 0.03 10^3/uL (0.0-0.06); Absolute Basophil Count 0.03 10^3/uL (0.0-0.2); Absolute Eosinophil Count 0.21 10^3/uL (0.0-0.7); Absolute Lymphocyte Count 1.61 10^3/uL (1.2-3.4); Absolute Monocyte Count 0.61 10^3/uL (0.1-0.8); Absolute Neutrophil Count 4.71 10^3/uL (1.2-6.7); Basophils % 0.4 %; Eosinophils % 2.9 %; HCT 34.8 % (40.0-50.0); HGB 11.4 g/dL (13.5-17.5); Immature Grans % 0.4 %; Lymphocytes % 22.4 %; MCH 29.4 pg (27.0-33.0); MCHC 32.8 % (32.0-36.0); MCV 90 fL (80-95); MPV 9.7 fL (8.0-11.0); Monocytes % 8.5 %; Neutrophils % 65.4 %; Platelet Count 169 10^3/uL (130-400); RBC 3.88 10^6/uL (4.36-5.78); RDW 14.3 % (11.8-14.1)
[2024-12-29 15:21] LABS: Ferritin 388 ng/mL (26-388)
== END 2024-12-29 04:44 | disposition home or self-care (01) ==
LOC: LBO 04:43
PROVIDERS: PCP Internal Medicine Hematology & Oncology; Visit Provider Internal Medicine Hematology & Oncology
DX: D64.9 Anemia, unspecified (principal); N18.31 Chronic kidney disease, stage 3a; D63.1 Anemia in chronic kidney disease; D50.0 Iron deficiency anemia secondary to blood loss (chronic)
CPT/HCPCS: 36415; 82728; 85025

== ENCOUNTER 2025-01-26 04:36 | Outpatient (CLI) | payer MEDICARE, SELFPAY ==
[2025-01-26 14:19] LABS: Abs Immature Grans 0.03 10^3/uL (0.0-0.06); Absolute Basophil Count 0.03 10^3/uL (0.0-0.2); Absolute Eosinophil Count 0.11 10^3/uL (0.0-0.7); Absolute Lymphocyte Count 1.51 10^3/uL (1.2-3.4); Absolute Monocyte Count 0.53 10^3/uL (0.1-0.8); Absolute Neutrophil Count 5.73 10^3/uL (1.2-6.7); Basophils % 0.4 %; Eosinophils % 1.4 %; HCT 35.1 % (40.0-50.0); HGB 11.6 g/dL (13.5-17.5); Immature Grans % 0.4 %; MCH 29.4 pg (27.0-33.0); MCV 89 fL (80-95); MPV 9.2 fL (8.0-11.0); Monocytes % 6.7 %; Neutrophils % 72.1 %; Platelet Count 176 10^3/uL (130-400); RBC 3.94 10^6/uL (4.36-5.78); RDW 14.9 % (11.8-14.1); RDW-SD 48.5 fL; WBC 7.94 10^3/uL (4.4-10.8)
[2025-01-26 14:55] LABS: Ferritin 290 ng/mL (26-388)
== END 2025-01-26 04:37 | disposition home or self-care (01) ==
LOC: LBO 04:36
PROVIDERS: PCP Internal Medicine Hematology & Oncology; Visit Provider Internal Medicine Hematology & Oncology
DX: N18.31 Chronic kidney disease, stage 3a (principal); D63.1 Anemia in chronic kidney disease
CPT/HCPCS: 36415; 82728; 85025

== ENCOUNTER 2025-02-23 01:54 | Outpatient (CLI) | payer MEDICARE, SELFPAY ==
[2025-02-23 13:08] LABS: Abs Immature Grans 0.04 10^3/uL (0.0-0.06); Absolute Basophil Count 0.02 10^3/uL (0.0-0.2); Absolute Eosinophil Count 0.09 10^3/uL (0.0-0.7); Absolute Lymphocyte Count 1.98 10^3/uL (1.2-3.4); Absolute Monocyte Count 0.63 10^3/uL (0.1-0.8); Absolute Neutrophil Count 5.17 10^3/uL (1.2-6.7); Basophils % 0.3 %; Eosinophils % 1.1 %; HCT 36.2 % (40.0-50.0); HGB 12.1 g/dL (13.5-17.5); Immature Grans % 0.5 %; MCH 30.1 pg (27.0-33.0); MCHC 33.4 % (32.0-36.0); MCV 90 fL (80-95); MPV 9.2 fL (8.0-11.0); Monocytes % 7.9 %; Neutrophils % 65.2 %; Platelet Count 181 10^3/uL (130-400); RBC 4.02 10^6/uL (4.36-5.78); RDW 15.2 % (11.8-14.1); RDW-SD 49.5 fL; WBC 7.93 10^3/uL (4.4-10.8)
[2025-02-23 13:35] LABS: Ferritin 282 ng/mL (26-388)
== END 2025-02-23 01:55 | disposition home or self-care (01) ==
LOC: LBO 01:55
PROVIDERS: PCP Internal Medicine Hematology & Oncology; Visit Provider Internal Medicine Hematology & Oncology
DX: N18.31 Chronic kidney disease, stage 3a (principal); D63.1 Anemia in chronic kidney disease; D50.0 Iron deficiency anemia secondary to blood loss (chronic)
CPT/HCPCS: 36415; 82728; 85025

== ENCOUNTER 2025-03-24 01:38 | Outpatient (CLI) | payer MEDICARE, SELFPAY ==
[2025-03-24 13:20] LABS: Abs Immature Grans 0.02 10^3/uL (0.0-0.06); Absolute Basophil Count 0.02 10^3/uL (0.0-0.2); Absolute Eosinophil Count 0.05 10^3/uL (0.0-0.7); Absolute Lymphocyte Count 1.51 10^3/uL (1.2-3.4); Absolute Monocyte Count 0.52 10^3/uL (0.1-0.8); Absolute Neutrophil Count 3.91 10^3/uL (1.2-6.7); Basophils % 0.3 %; Eosinophils % 0.8 %; HCT 29.2 % (40.0-50.0); Immature Grans % 0.3 %; MCH 30.4 pg (27.0-33.0); MCHC 34.2 % (32.0-36.0); MCV 89 fL (80-95); Monocytes % 8.6 %; Platelet Count 170 10^3/uL (130-400); RBC 3.29 10^6/uL (4.36-5.78); RDW 14.9 % (11.8-14.1); RDW-SD 47.8 fL; WBC 6.03 10^3/uL (4.4-10.8)
[2025-03-24 13:47] LABS: Ferritin 379 ng/mL (26-388)
== END 2025-03-24 01:39 | disposition home or self-care (01) ==
PROVIDERS: PCP Internal Medicine Hematology & Oncology; Visit Provider Internal Medicine Hematology & Oncology
DX: N18.31 Chronic kidney disease, stage 3a (principal); D63.1 Anemia in chronic kidney disease; D50.0 Iron deficiency anemia secondary to blood loss (chronic); D64.9 Anemia, unspecified
CPT/HCPCS: 36415; 82728; 85025

== ENCOUNTER 2025-04-21 03:34 | Outpatient (CLI) | payer MEDICARE, SELFPAY ==
[2025-04-21 13:04] LABS: Abs Immature Grans 0.03 10^3/uL (0.0-0.06); Absolute Basophil Count 0.02 10^3/uL (0.0-0.2); Absolute Eosinophil Count 0.07 10^3/uL (0.0-0.7); Absolute Lymphocyte Count 1.82 10^3/uL (1.2-3.4); Absolute Neutrophil Count 6.09 10^3/uL (1.2-6.7); Basophils % 0.2 %; Eosinophils % 0.8 %; HCT 34.2 % (40.0-50.0); HGB 11.3 g/dL (13.5-17.5); Immature Grans % 0.3 %; Lymphocytes % 20.8 %; MCH 31.1 pg (27.0-33.0); MCV 94 fL (80-95); MPV 8.8 fL (8.0-11.0); Neutrophils % 69.9 %; Platelet Count 225 10^3/uL (130-400); RBC 3.63 10^6/uL (4.36-5.78); RDW 14.3 % (11.8-14.1); RDW-SD 49.4 fL; WBC 8.73 10^3/uL (4.4-10.8)
[2025-04-21 13:28] LABS: Ferritin 351 ng/mL (26-388)
== END 2025-04-21 03:35 | disposition home or self-care (01) ==
LOC: LBO 03:34
PROVIDERS: PCP Internal Medicine Hematology & Oncology; Visit Provider Internal Medicine Hematology & Oncology
DX: N18.31 Chronic kidney disease, stage 3a (principal); D63.1 Anemia in chronic kidney disease; D64.9 Anemia, unspecified; D50.0 Iron deficiency anemia secondary to blood loss (chronic)
CPT/HCPCS: 36415; 82728; 85025

== ENCOUNTER 2025-05-25 03:38 | Outpatient (CLI) | payer MEDICARE, SELFPAY ==
[2025-05-25 08:13] LABS: Abs Immature Grans 0.01 10^3/uL (0.0-0.06); HCT 30.7 % (40.0-50.0); HGB 10.1 g/dL (13.5-17.5); Immature Grans % 0.2 %; MCH 30.6 pg (27.0-33.0); MCHC 32.9 % (32.0-36.0); MCV 93 fL (80-95); MPV 9.2 fL (8.0-11.0); Platelet Count 140 10^3/uL (130-400); RBC 3.30 10^6/uL (4.36-5.78); RDW 13.6 % (11.8-14.1); RDW-SD 46.5 fL; WBC 5.76 10^3/uL (4.4-10.8)
[2025-05-25 08:44] LABS: Ferritin 262 ng/mL (26-388)
== END 2025-05-25 03:39 | disposition home or self-care (01) ==
LOC: LBO 03:38
PROVIDERS: PCP Internal Medicine Hematology & Oncology; Visit Provider Internal Medicine Hematology & Oncology
DX: N18.31 Chronic kidney disease, stage 3a (principal); D63.1 Anemia in chronic kidney disease; D64.9 Anemia, unspecified; D50.0 Iron deficiency anemia secondary to blood loss (chronic)
CPT/HCPCS: 36415; 82728; 85025

== ENCOUNTER 2025-07-19 15:52 | Outpatient (CLI) | payer MEDICARE, SELFPAY ==
[2025-07-19 11:33] LABS: Abs Immature Grans 0.02 10^3/uL (0.0-0.06); HCT 28.8 % (40.0-50.0); HGB 9.7 g/dL (13.5-17.5); Immature Grans % 0.3 %; MCH 31.1 pg (27.0-33.0); MCHC 33.7 % (32.0-36.0); MCV 92 fL (80-95); MPV 9.3 fL (8.0-11.0); Platelet Count 158 10^3/uL (130-400); RBC 3.12 10^6/uL (4.36-5.78); RDW 13.7 % (11.8-14.1); RDW-SD 46.8 fL; WBC 5.77 10^3/uL (4.4-10.8)
[2025-07-19 11:51] LABS: ALT 24 U/L (16-63); AST 18 U/L (15-37); Albumin 3.5 g/dL (3.4-5.0); Alkaline Phosphatase 69 U/L (46-116); Anion Gap 4.7 mmol/L (3-11); BUN 46 mg/dL (7-18); Bilirubin, Total 0.5 mg/dL (0.2-1.0); CO2 31.3 mmol/L (21.0-32.0); Calcium 9.5 mg/dL (8.5-10.1); Chloride 101 mmol/L (98-107); Estimated GFR 34.79 (mL/min/1.73m2); Glucose 217 mg/dL (74-106); Potassium 4.9 mmol/L (3.5-5.1); Sodium 137 mmol/L (136-145); Total Protein 6.6 g/dL (6.4-8.2)
[2025-07-20 09:48] LABS: Ferritin 252 ng/mL (26-388)
== END 2025-07-19 15:53 | disposition home or self-care (01) ==
LOC: LBO 15:53
PROVIDERS: PCP Internal Medicine Hematology & Oncology; Visit Provider Internal Medicine Hematology & Oncology
DX: N18.31 Chronic kidney disease, stage 3a (principal); D64.9 Anemia, unspecified; D50.0 Iron deficiency anemia secondary to blood loss (chronic)
CPT/HCPCS: 36415; 80053; 82728; 85025

== ENCOUNTER 2025-08-17 04:04 | Outpatient (CLI) | payer MEDICARE, SELFPAY ==
[2025-08-17 07:23] LABS: Abs Immature Grans 0.02 10^3/uL (0.0-0.06); HCT 30.8 % (40.0-50.0); HGB 10.2 g/dL (13.5-17.5); Immature Grans % 0.3 %; MCH 30.5 pg (27.0-33.0); MCHC 33.1 % (32.0-36.0); MCV 92 fL (80-95); MPV 9.5 fL (8.0-11.0); Platelet Count 172 10^3/uL (130-400); RBC 3.34 10^6/uL (4.36-5.78); RDW 13.9 % (11.8-14.1); RDW-SD 47.2 fL; WBC 5.75 10^3/uL (4.4-10.8)
[2025-08-17 07:53] LABS: Ferritin 207 ng/mL (26-388)
== END 2025-08-17 04:05 | disposition home or self-care (01) ==
PROVIDERS: PCP Internal Medicine Hematology & Oncology; Visit Provider Internal Medicine Hematology & Oncology
DX: N18.31 Chronic kidney disease, stage 3a (principal)
CPT/HCPCS: 36415; 82728; 85025

== ENCOUNTER 2025-09-14 01:55 | Outpatient (CLI) | payer MEDICARE, SELFPAY ==
[2025-09-14 07:48] LABS: Abs Immature Grans 0.04 10^3/uL (0.0-0.06); HCT 29.4 % (40.0-50.0); HGB 9.8 g/dL (13.5-17.5); Immature Grans % 0.5 %; MCH 30.5 pg (27.0-33.0); MCHC 33.3 % (32.0-36.0); MCV 92 fL (80-95); MPV 9.3 fL (8.0-11.0); Platelet Count 160 10^3/uL (130-400); RBC 3.21 10^6/uL (4.36-5.78); RDW 13.8 % (11.8-14.1); RDW-SD 46.7 fL; WBC 8.78 10^3/uL (4.4-10.8)
[2025-09-14 08:20] LABS: Ferritin 192 ng/mL (26-388)
== END 2025-09-14 01:56 | disposition home or self-care (01) ==
LOC: LBO 01:56
PROVIDERS: PCP Internal Medicine Hematology & Oncology; Visit Provider Internal Medicine Hematology & Oncology
DX: N18.31 Chronic kidney disease, stage 3a (principal); D63.1 Anemia in chronic kidney disease; D64.9 Anemia, unspecified; D50.0 Iron deficiency anemia secondary to blood loss (chronic)
CPT/HCPCS: 36415; 82728; 85025

== ENCOUNTER 2025-10-12 02:15 | Outpatient (CLI) | payer MEDICARE, SELFPAY ==
[2025-10-12 07:46] LABS: Abs Immature Grans 0.02 10^3/uL (0.0-0.06); HCT 30.1 % (40.0-50.0); HGB 10.2 g/dL (13.5-17.5); Immature Grans % 0.3 %; MCH 31.3 pg (27.0-33.0); MCHC 33.9 % (32.0-36.0); MCV 92 fL (80-95); MPV 9.4 fL (8.0-11.0); Platelet Count 171 10^3/uL (130-400); RBC 3.26 10^6/uL (4.36-5.78); RDW 13.5 % (11.8-14.1); RDW-SD 45.9 fL; WBC 6.26 10^3/uL (4.4-10.8)
[2025-10-12 08:13] LABS: Ferritin 118 ng/mL (11-307)
== END 2025-10-12 02:16 | disposition home or self-care (01) ==
LOC: LBO 02:15
PROVIDERS: PCP Internal Medicine Hematology & Oncology; Visit Provider Internal Medicine Hematology & Oncology
DX: N18.31 Chronic kidney disease, stage 3a (principal); D64.9 Anemia, unspecified; D50.0 Iron deficiency anemia secondary to blood loss (chronic); D63.1 Anemia in chronic kidney disease
CPT/HCPCS: 36415; 82728; 85025

== ENCOUNTER 2025-11-09 00:32 | Outpatient (CLI) | payer MEDICARE, SELFPAY ==
[2025-11-09 07:42] LABS: Abs Immature Grans 0.03 10^3/uL (0.0-0.06); HCT 28.0 % (40.0-50.0); HGB 9.2 g/dL (13.5-17.5); Immature Grans % 0.4 %; MCH 30.0 pg (27.0-33.0); MCHC 32.9 % (32.0-36.0); MCV 91 fL (80-95); MPV 9.2 fL (8.0-11.0); Platelet Count 172 10^3/uL (130-400); RBC 3.07 10^6/uL (4.36-5.78); RDW 13.8 % (11.8-14.1); RDW-SD 45.4 fL; WBC 7.80 10^3/uL (4.4-10.8)
== END 2025-11-09 00:33 | disposition home or self-care (01) ==
LOC: LBO 00:32
PROVIDERS: PCP Internal Medicine Hematology & Oncology; Visit Provider Internal Medicine Hematology & Oncology
DX: N18.31 Chronic kidney disease, stage 3a (principal); D63.1 Anemia in chronic kidney disease
CPT/HCPCS: 36415; 85025